=== PATIENT | male | born 1965 | race Hispanic/Latino ===

== ENCOUNTER 2016-11-29 21:23 | Inpatient (IN) | payer MEDICARE ==
[2016-11-29] MEDS ORDERED: Sodium Chloride 0.9% 1,000 ML IV STA (22:09)
--- NOTE | 2016-11-29 22:26 | ED PDOC ---
HPI: Abdomen Time Seen by Provider: 11/29/16 22:00 Chief Complaint (Nursing): Abdominal Pain Chief Complaint (Provider): abdominal pain History Per: Patient History/Exam Limitations: no limitations Onset/Duration Of Symptoms: Hrs Current Symptoms Are (Timing): Still Present Location Of Pain/Discomfort: Diffuse Quality Of Discomfort: Sharp, "Pain" Associated Symptoms: Nausea Additional History Per: Patient Additional Complaint(s): 51 y/o male presents with abdominal pain x 1 hour. Denies fever, vomiting, chest pain, shortness of breath, palpitations, changes in bowel movements, dysuria, hematuria. Past Medical History Reviewed: Historical Data, Nursing Documentation, Vital Signs Vital Signs: Last Vital Signs Temp 102.4 F H 11/30/16 02:43 Pulse 123 H 11/30/16 02:57 Resp 18 11/30/16 02:57 BP 146/86 11/30/16 02:57 Pulse Ox 97 11/30/16 02:59 - Medical History PMH: Arthritis (left knee), Back Problems (herniated disk), Hypercholesterolemia , Hyperlipidemia Denies: Chronic Kidney Disease - Surgical History Surgical History: No Surg Hx - Family History Family History: States: Unknown Family Hx - Home Medications Home Medications: Ambulatory Orders Medication Instructions Recorded traMADol [Ultram] 50 mg PO BID 12/11/14 Aspirin [Aspirin Chewable] 81 mg PO DAILY #0 ctb 08/25/15 Ranitidine HCl [Zantac] 150 mg PO DAILY 06/02/16 amLODIPine [Norvasc] 10 mg PO DAILY 11/30/16 - Allergies Allergies/Adverse Reactions: Allergies Allergy/AdvReac Type Severity Reaction Status Date / Time shrimp Allergy SHORTNESS Verified 11/16/15 18:37 OF BREATH soy Allergy SHORTNESS Verified 11/16/15 18:37 OF BREATH Review of Systems ROS Statement: Except As Marked, All Systems Reviewed And Found Negative Gastrointestinal: Positive for: Abdominal Pain Physical Exam - Reviewed Nursing Documentation Reviewed: Yes Vital Signs Reviewed: Yes - Physical Exam Appears: Positive for: Well, Non-toxic, Uncomfortable Head Exam: Positive for: ATRAUMATIC, NORMAL INSPECTION, NORMOCEPHALIC Skin: Positive for: Normal Color Eye Exam: Positive for: Normal appearance ENT: Positive for: Normal ENT Inspection Cardiovascular/Chest: Positive for: Regular Rate, Rhythm Respiratory: Positive for: Normal Breath Sounds Gastrointestinal/Abdominal: Positive for: Bowel Sounds, Tenderness (diffuse), Distended Back: Positive for: Normal Inspection Extremity: Positive for: Normal ROM Neurologic/Psych: Positive for: Alert, Oriented - Laboratory Results Result Diagrams: 11/29/16 22:30 11/29/16 22:29 - ECG ECG: Positive for: Viewed By Me (reviewed by ED attending) ECG Rhythm: Positive for: Sinus Rhythm O2 Sat by Pulse Oximetry: 97 Pulse Ox Interpretation: Normal - Radiology X-Ray: Viewed By Me X-Ray Interpretation: No Acute Disease - Progress ED Course And Treament: labs, urine, CT abd/pelvis, ekg, chest xray, IV morphine, IV fluids EXAM: CT Abdomen and Pelvis With Intravenous Contrast CLINICAL HISTORY: 51 years old, male; Pain; Abdominal pain; Generalized TECHNIQUE: Axial computed tomography images of the abdomen and pelvis with intravenous contrast. This CT exam was performed using one or more of the following dose reduction techniques : automated exposure control, adjustment of the mA and/or kV according to patient size, and/ or use of iterative reconstruction technique. Coronal and sagittal reformatted images were created and reviewed. CONTRAST: 95 mL of [id number] administered intravenously. EXAM DATE/TIME: 11/29/2016 11:06 PM COMPARISON: CT - ABD PELVIS PO IV CONTRAST 06/04/2016 4:33:35 PM FINDINGS: Artifacts: Streak artifact degrades image quality.Motion artifact degrades image quality. Lower thorax: Heart size is normal. There is a small hiatal hernia. There is patchy airspace disease at the lung bases. ABDOMEN: Liver: There is fatty infiltration of the liver. Gallbladder and bile ducts: unremarkable Pancreas: Pancreas is mildly atrophic. Spleen: unremarkable Adrenals: Right adrenal is unremarkable. There is a 12 mm left adrenal nodule Kidneys and ureters: unremarkable Stomach and bowel: Stomach is distended with ingested material and air. Rotation is normal. Small bowel is mildly distended with scattered air-fluid levels. There is fecalization of distal and terminal ileum. Appendix is not optimally demonstrated. There is moderate stool in the cecum. There is mild colonic wall thickening. There is sigmoid diverticulosis. There is sigmoid diverticulitis. There is adjacent inflammation and fluid. Appendix: See above. PELVIS: Bladder: Bladder is unremarkable. Reproductive: Seminal vesicles and prostate are unremarkable. ABDOMEN and PELVIS: Intraperitoneal space: There is free air in the abdomen. There is a small amount of fluid in the pelvis. Bones/joints: There are degenerative changes in the osseus structures. Soft tissues: There is a small fat containing umbilical hernia. Vasculature: There are vascular calcifications. Lymph nodes: unremarkable IMPRESSION: Perforated sigmoid diverticulitis with free air in the upper abdomen Additional findings as described above. Patient tachycardic in 120's, repeat temp 102.4F Case discussed with ED attending Dr. Mccoy; IV Cipro, IV flagy, OH tylenol, IV fluids ordered Case discussed with Marco Antonio Rosas WRITER for admission, request Dr. Beaulieu for surgical consult Dr. Mccoy spoke with Dr. Beaulieu regarding consult Dr. Mccoy spoke with Dr. Deras, Analyst on-call, regarding consult Disposition - Clinical Impression Clinical Impression: Perforation of sigmoid colon due to diverticulitis - Patient ED Disposition Is Patient to be Admitted: Yes - Disposition Disposition Time: 02:33 Condition: GUARDED
[2016-11-29 22:32] LABS: BASO # 0.1 K/uL (0.0-0.2); BASO % 0.3 % (0.0-2.0); EOS # 0.2 K/uL (0.0-0.7); EOS % 1.3 % (0.0-4.0); HEMATOCRIT 47.9 % (35.0-51.0); MEAN CELL VOLUME 94.5 fl (80.0-94.0); MEAN CORPUSCULAR HEMOGLOBIN 31.4 pg (27.0-31.0); MEAN CORPUSCULAR HGB CONC 33.2 g/dL (33.0-37.0); MEAN PLATELET VOLUME 7.7 fl (7.2-11.7); MONO # 0.8 K/uL (0.0-0.8); MONO % 4.6 % (0.0-10.0); NEUT # 13.6 K/uL (1.8-7.0); NEUT % 81.8 % (50.0-75.0); RED CELL DISTRIBUTION WIDTH 13.4 % (11.5-14.5); WHITE BLOOD COUNT 16.7 K/uL (4.8-10.8)
[2016-11-29 22:45] LABS: ALB/GLOB RATIO 1.4 (1.0-2.1); ALKALINE PHOSPHATASE 54 U/L (38-126); ALT/SGPT 29 U/L (21-72); AST/SGOT 27 U/L (17-59); BILIRUBIN,TOTAL 0.3 mg/dl (0.2-1.3); BLOOD UREA NITROGEN 23 mg/dl (9-20); CALCIUM 9.5 mg/dL (8.4-10.2); CARBON DIOXIDE 29 mmol/L (22-30); CHLORIDE 105 mmol/L (98-107); GFR AFRICAN-AMERICAN > 60; GLUCOSE,RANDOM 89 mg/dL (75-110); LIPASE 76 U/L (23-300); SODIUM 143 mmol/l (132-148); TOTAL PROTEIN 7.7 G/DL (6.3-8.2)
[2016-11-29 22:53] LABS: PARTIAL THROMBOPLASTIN TIME 27.1 Seconds (25.6-37.1)
[2016-11-29] MEDS ORDERED: Iohexol 240 (50 ml) PO ONE (23:06)
[2016-11-29] MEDS ORDERED: Iohexol 240 (50 ml) ONE (23:12)
[2016-11-30] MEDS ORDERED: Iohexol 300 100 ML IJ ONE (01:20)
[2016-11-30] MEDS ORDERED: Sodium Chloride 0.9% 50 ML IV ONE (01:20)
--- NOTE | 2016-11-30 02:21 | CT ---
EXAM: CT Abdomen and Pelvis With Intravenous Contrast CLINICAL HISTORY: 51 years old, male; Pain; Abdominal pain; Generalized TECHNIQUE: Axial computed tomography images of the abdomen and pelvis with intravenous contrast. This CT exam was performed using one or more of the following dose reduction techniques: automated exposure control, adjustment of the mA and/or kV according to patient size, and/or use of iterative reconstruction technique. Coronal and sagittal reformatted images were created and reviewed. CONTRAST: 95 mL of [id number] administered intravenously. EXAM DATE/TIME: 11/29/2016 11:06 PM COMPARISON: CT - ABD PELVIS PO IV CONTRAST 06/04/2016 4:33:35 PM FINDINGS: Artifacts: Streak artifact degrades image quality.Motion artifact degrades image quality. Lower thorax: Heart size is normal. There is a small hiatal hernia. There is patchy airspace disease at the lung bases. ABDOMEN: Liver: There is fatty infiltration of the liver. Gallbladder and bile ducts: unremarkable Pancreas: Pancreas is mildly atrophic. Spleen: unremarkable Adrenals: Right adrenal is unremarkable. There is a 12 mm left adrenal nodule Kidneys and ureters: unremarkable Stomach and bowel: Stomach is distended with ingested material and air. Rotation is normal. Small bowel is mildly distended with scattered air-fluid levels. There is fecalization of distal and terminal ileum. Appendix is not optimally demonstrated. There is moderate stool in the cecum. There is mild colonic wall thickening. There is sigmoid diverticulosis. There is sigmoid diverticulitis. There is adjacent inflammation and fluid. Appendix: See above. PELVIS: Bladder: Bladder is unremarkable. Reproductive: Seminal vesicles and prostate are unremarkable. ABDOMEN and PELVIS: Intraperitoneal space: There is free air in the abdomen. There is a small amount of fluid in the pelvis. Bones/joints: There are degenerative changes in the osseus structures. Soft tissues: There is a small fat containing umbilical hernia. Vasculature: There are vascular calcifications. Lymph nodes: unremarkable IMPRESSION: Perforated sigmoid diverticulitis with free air in the upper abdomen Additional findings as described above.
[2016-11-30] MEDS ORDERED: metroNIDAZOLE 500mg/100ml NS 100 ML IVPB STA (02:23)
[2016-11-30] MEDS ORDERED: Ciprofloxacin 400mg/200ml D5W 400 MG/200 ML BAG IV STA (02:23)
[2016-11-30] MEDS ORDERED: Sodium Chloride 0.9% 1,000 ML IV STA (02:24)
[2016-11-30] MEDS ORDERED: Ciprofloxacin 400mg/200ml D5W 400 MG/200 ML BAG IVPB ONE (02:26)
[2016-11-30] MEDS ORDERED: Sodium Chloride 0.9% 1,000 ML IV SCH (03:00)
--- NOTE | 2016-11-30 03:28 | CP.PCM.CON ---
History of Present Illness - History of Present Illness History of Present Illness: Reason for Consult: Perforated Sigmoid Diverticulitis HPI 51 year old male PMH diverticulitis, HTN, GERD, presents with a few hour hx of acute onset severe sharp nonradiating lower abdominal pain. Patient diaphoretic , guarded, febrile 102.4, HR 123, 146/86, RR 18 saturating 97% RA. WBC 16.7. CT Abd + perforated sigmoid diverticulitis. Denies diarrhea, vomiting, chest pain, dyspnea. METs >4. Dr. Beaulieu surgery consulted in ER, aware. Cipro/Flagyl started in ER. 2L NS given, Morphine for pain control. Admit to ICU for close monitoring. NPO. ROS: per HPI, 12 systems reviewed and negative PMD: [place] PMH: HTN, GERD PSH: denies FH: denies SH: denies tobacco, ETOH, IVDU Meds: as below Allergies: NKDA Vitals: reviewed and currently stable Exam: GEN: diaphoretic, in mild distress, alert, cooperative HEENT: NCAT, PERRL, EOMI NECK: supple, no JVD, no lymphadenopathy CARDIAC: +S1S2 RRR LUNG: CTAB No WRR ABD: +tenderness generalized greatest LLL, SOFT BSX4 NO MASSES NO HSM EXT: +pedal pulses, equal strength NEURO: AAOx3 SKIN warm, moist PSYCH normal mood, normal affect Labs: 11/29/16 22:30 11/29/16 22:29 PT 10.0 Seconds (9.8-13.1) 11/29/16 22:30 INR 0.9 (0.9-1.2) 11/29/16 22:30 APTT 27.1 Seconds (25.6-37.1) 11/29/16 22:30 Rads: CT ABD: + perforated sigmoid diverticulitis Active Medications: Ciprofloxacin 400mg/200ml D5W [Cipro 400mg/200ml DSW] 400 mg in 200 ml IV STAT metroNIDAZOLE 500mg/100ml NS [Flagyl 500MG/100ML NS] 100 ml IVPB STAT 11/30/16 02:24 Sodium Chloride 0.9% 1,000 ml IV 1,000 mls/hr 11/30/16 03:00 Morphine 4 mg IVP Q4H PRN Sodium Chloride 0.9% 1,000 ml IV 150 mls/hr 11/30/16 09:00 Ciprofloxacin 400MG/D5W 250ML Q12H Ciprofloxacin 400mg/200ml D5W [Cipro 400mg/ 200ml DSW] 400 mg in 200 ml IVPB Q12 metroNIDAZOLE 500MG/100ML NS IV Q8H metroNIDAZOLE 500mg/100ml NS [Flagyl 500MG/ 100ML NS] 100 ml IVPB Q8 Assessment and Plan: 51 year old male PMH diverticulitis, HTN, GERD, presents with a few hour hx of acute onset severe sharp nonradiating lower abdominal pain. Patient diaphoretic , guarded, febrile 102.4, HR 123, 146/86, RR 18 saturating 97% RA. WBC 16.7. CT Abd + perforated sigmoid diverticulitis. Denies diarrhea, vomiting, chest pain, dyspnea. METs >4. Dr. Beaulieu surgery consulted in ER, aware. Cipro/Flagyl started in ER. 2L NS given, continuing NS@ 150cc/hr, Morphine for pain control. Admit to ICU for close monitoring. NPO. Sepsis 2/2 Perforated Sigmoid Diverticulitis Admit to ICU for close monitoring CT Abd + perforated sigmoid diverticulitis. Continue Cipro and Flagyl Hold ASA Surgery Consulted in ER Dr Beaulieu NPO and fluids Stat repeat LA Cultures pending Past Patient History - Past Medical History & Family History Past Medical History?: Yes - Past Social History Smoking Status: Never Smoked - CARDIAC Hx Hypercholesterolemia: Yes - PULMONARY Hx Respiratory Disorders: No - NEUROLOGICAL Hx Neurological Disorder: No - HEENT Hx HEENT Problems: No - RENAL Hx Chronic Kidney Disease: No - ENDOCRINE/METABOLIC Hx Endocrine Disorders: No - HEMATOLOGICAL/ONCOLOGICAL Hx Blood Disorders: No - INTEGUMENTARY Hx Dermatological Problems: No - MUSCULOSKELETAL/RHEUMATOLOGICAL Hx Arthritis: Yes (left knee) - GASTROINTESTINAL Hx Gastrointestinal Disorders: No - GENITOURINARY/GYNECOLOGICAL Hx Genitourinary Disorders: No - PSYCHIATRIC Hx Psychophysiologic Disorder: No Hx Substance Use: No - SURGICAL HISTORY Hx Surgeries: No - ANESTHESIA Hx Anesthesia: No Meds Allergies/Adverse Reactions: Allergies Allergy/AdvReac Type Severity Reaction Status Date / Time shrimp Allergy SHORTNESS Verified 11/16/15 18:37 OF BREATH soy Allergy SHORTNESS Verified 11/16/15 18:37 OF BREATH - Medications Medications: Current Medications Ciprofloxacin (Cipro 400mg/200ml Dsw) 400 mg in 200 mls @ 200 mls/hr IV STAT STA Stop: 11/30/16 03:22 Last Admin: 11/30/16 02:54 Dose: 200 mls/hr Metronidazole (Flagyl 500mg/100ml Ns) 100 mls @ 100 mls/hr IVPB STAT STA Stop: 11/30/16 03:22 Sodium Chloride (Sodium Chloride 0.9%) 1,000 mls @ 1,000 mls/hr IV .Q1H STA Stop: 11/30/16 03:23 Last Admin: 11/30/16 02:47 Dose: 1,000 mls/hr Sodium Chloride (Sodium Chloride 0.9%) 1,000 mls @ 150 mls/hr IV .Q6H40M [facility] Ciprofloxacin (Cipro 400mg/200ml Dsw) 400 mg in 200 mls @ 200 mls/hr IVPB Q12 [facility] Metronidazole (Flagyl 500mg/100ml Ns) 100 mls @ 100 mls/hr IVPB Q8 [facility] Morphine Sulfate (Morphine) 4 mg IVP ONCE ONE Stop: 11/30/16 02:56 Last Admin: 11/30/16 03:03 Dose: 4 mg Morphine Sulfate (Morphine) 4 mg IVP Q4H PRN PRN Reason: Pain, moderate (4-7) Results - Vital Signs Recent Vital Signs: Last Vital Signs Temp 102.4 F H 11/30/16 02:43 Pulse 123 H 11/30/16 02:57 Resp 18 11/30/16 02:57 BP 146/86 11/30/16 02:57 Pulse Ox 97 11/30/16 02:59 - Labs Result Diagrams: 11/29/16 22:30 11/29/16 22:29
[2016-11-30] MEDS ORDERED: Lactated Ringer's 1,000 ML IV SCH ×2 (03:45→06:15)
[2016-11-30 05:00] LABS: BASO # 0.1 K/uL (0.0-0.2); BASO % 0.4 % (0.0-2.0); LYMPH # 1.1 K/uL (1.0-4.3); LYMPH % 4.5 % (20.0-40.0); MEAN CELL VOLUME 93.8 fl (80.0-94.0); MEAN CORPUSCULAR HEMOGLOBIN 31.6 pg (27.0-31.0); MEAN CORPUSCULAR HGB CONC 33.8 g/dL (33.0-37.0); MEAN PLATELET VOLUME 7.4 fl (7.2-11.7); MONO # 0.9 K/uL (0.0-0.8); MONO % 3.6 % (0.0-10.0); NEUT # 22.4 K/uL (1.8-7.0); NEUT % 91.5 % (50.0-75.0); PLATELET COUNT 201 K/uL (130-400); RED CELL DISTRIBUTION WIDTH 13.4 % (11.5-14.5); WHITE BLOOD COUNT 24.5 K/uL (4.8-10.8)
[2016-11-30 05:14] LABS: BLOOD UREA NITROGEN 16 mg/dl (9-20); CALCIUM 8.6 mg/dL (8.4-10.2); CARBON DIOXIDE 22 mmol/L (22-30); CHLORIDE 108 mmol/L (98-107); GFR AFRICAN-AMERICAN > 60; GLUCOSE,RANDOM 118 mg/dL (75-110); MAGNESIUM 1.7 MG/DL (1.6-2.3); PHOSPHOROUS 2.5 mg/dl (2.5-4.5); POTASSIUM 3.4 MMOL/L (3.6-5.0); SODIUM 142 mmol/l (132-148)
[2016-11-30] MEDS: Piperacillin/Tazobact 3.375 GM in Sodium Chloride 0.9% 100 ML IVPB SCH ×4 (05:49→21:42)
--- NOTE | 2016-11-30 05:51 | CP.PCM.CON ---
History of Present Illness - History of Present Illness History of Present Illness: General Surgery - Dr. Beaulieu 51 yo M w/ hx of HTN, episode of Diverticulitis in Jun., presents w/ sudden onset abdominal pain since last night. Pt states the pain began around 6pm last night. He describes it as sharp/stabbing pain, located in the upper abdomen initially and causing him SOB. He states the pain migrated to the B/L lower quadrants and remained severe, causing him difficulty standing up. He also admits to nausea, fevers/chills, diaphoresis. Pt denies any vomiting, diarrhea, dysuria, hematuria, chest pain. Pt states this is the first time he' s ever had pain this severe. He had an episode of Diverticulitis in June of this year which was treated with antibiotics. He was supposed to F/U for colonoscopy but never did. PMH: HTN, GERD, Herniated discs in back, Diverticulitis 1x PSH: none SH: Smokes 1 ppd, denies ETOH or elicit drug use Meds: Tramadol, norvasc, ASA 81, Zantac All: Shrimp, Soy Pt was S&E in ICU. Pt has been febrile and tachycardic since admission from ED , Tmax 102.4, HR remains in 120s, BP 150s/80s and stable, saturating 95-99% on NC. Labs significant for WBC of 16.7. CT abd/pelvis shows perforated sigmoid diverticulitis with free air below the diaphragm. Pt received 2L NS in the ED, another 1L LR is ordered and infusing now. Review of Systems - Review of Systems All systems: reviewed and no additional remarkable complaints except (as per HPI ) Past Patient History - Past Medical History & Family History Past Medical History?: Yes - Past Social History Smoking Status: Heavy Smoker > 10 Cigarettes Daily - CARDIAC Hx Hypercholesterolemia: Yes Hx Hypertension: Yes Other/Comment: Hyperlipidemia - PULMONARY Hx Respiratory Disorders: No - NEUROLOGICAL Hx Neurological Disorder: No - HEENT Hx HEENT Problems: No - RENAL Hx Chronic Kidney Disease: No - ENDOCRINE/METABOLIC Hx Endocrine Disorders: No - HEMATOLOGICAL/ONCOLOGICAL Hx Blood Disorders: No - INTEGUMENTARY Hx Dermatological Problems: No - MUSCULOSKELETAL/RHEUMATOLOGICAL Hx Arthritis: Yes (left knee) Hx Falls: Yes Hx Herniated Disk: Yes - GASTROINTESTINAL Hx Gastrointestinal Disorders: No - GENITOURINARY/GYNECOLOGICAL Hx Genitourinary Disorders: No - PSYCHIATRIC Hx Psychophysiologic Disorder: No Hx Substance Use: No - SURGICAL HISTORY Hx Surgeries: No - ANESTHESIA Hx Anesthesia: No Meds Allergies/Adverse Reactions: Allergies Allergy/AdvReac Type Severity Reaction Status Date / Time shrimp Allergy SHORTNESS Verified 11/16/15 18:37 OF BREATH soy Allergy SHORTNESS Verified 11/16/15 18:37 OF BREATH - Medications Medications: Current Medications Acetaminophen (Tylenol 325mg Tab) 650 mg PO Q4 PRN PRN Reason: Fever >100.4 F Sodium Chloride (Sodium Chloride 0.9%) 1,000 mls @ 150 mls/hr IV .Q6H40M [facility] Metronidazole (Flagyl 500mg/100ml Ns) 100 mls @ 100 mls/hr IVPB Q8 [facility] Lactated Ringer's (Lactated Ringer's) 1,000 mls @ 999 mls/hr IV .Q1H1M [facility] Last Admin: 11/30/16 04:30 Dose: 999 mls/hr Piperacillin Sod/Tazobactam (Sod 3.375 gm/ Sodium Chloride) 100 mls @ 100 mls/ hr IVPB Q6 [facility] Potassium Chloride (Potassium Chloride 10 Meq/100 Ml) 100 mls @ 100 mls/hr IVPB Q1 [facility] Stop: 11/30/16 08:59 Morphine Sulfate (Morphine) 4 mg IVP Q4H PRN PRN Reason: Pain, moderate (4-7) Physical Exam - Constitutional Appears: Toxic, In Acute Distress - Head Exam Head Exam: ATRAUMATIC, NORMAL INSPECTION, NORMOCEPHALIC - Eye Exam Eye Exam: EOMI, Normal appearance - ENT Exam ENT Exam: Mucous Membranes Dry - Respiratory Exam Respiratory Exam: NORMAL BREATHING PATTERN. absent: Respiratory Distress - Cardiovascular Exam Cardiovascular Exam: Tachycardia, REGULAR RHYTHM - GI/Abdominal Exam GI & Abdominal Exam: Distended, Firm, Guarding, Rebound, Rigid, Tenderness ( diffusely, Rigid abdomen). absent: Hernia - Extremities Exam Extremities exam: Positive for: normal inspection. Negative for: calf tenderness, pedal edema - Neurological Exam Neurological exam: Alert, Oriented x3 - Psychiatric Exam Psychiatric exam: Normal Affect, Normal Mood - Skin Skin Exam: Diaphoretic, Normal Color Results - Vital Signs Recent Vital Signs: Last Vital Signs Temp 100.1 F H 11/30/16 04:00 Pulse 118 H 11/30/16 04:00 Resp 11 L 11/30/16 04:00 BP 152/97 H 11/30/16 04:00 Pulse Ox 97 11/30/16 04:00 - Labs Result Diagrams: 11/30/16 04:15 11/30/16 04:15 Labs: Laboratory Results - last 24 hr 11/30/16 11/30/16 11/30/16 03:20 04:15 04:15 WBC 24.5 H RBC 4.80 Hgb 15.2 Hct 45.0 MCV 93.8 MCH 31.6 H MCHC 33.8 RDW 13.4 Plt Count 201 MPV 7.4 Neut % (Auto) 91.5 H Lymph % (Auto) 4.5 L [place] % (Auto) 3.6 Eos % (Auto) 0.0 Baso % (Auto) 0.4 Neut # 22.4 H Lymph # 1.1 [place] # 0.9 H Eos # 0.0 Baso # 0.1 Sodium 142 Potassium 3.4 L Chloride 108 H Carbon Dioxide 22 Anion Gap 15 BUN 16 Creatinine 0.7 L Est GFR ( Amer) > 60 Est GFR (Non-Af Amer) > 60 Random Glucose 118 H Lactic Acid 2.3 H Calcium 8.6 Phosphorus 2.5 Magnesium 1.7 - Imaging and Cardiology CT scan - abdomen Status: Image reviewed by me, Report reviewed by me Assessment & Plan - Assessment and Plan (Free Text) Assessment: 51 yo M w/ perforated diverticulitis and pneumoperitoneum, septic -Admitted to ICU -NPO -IVF resuscitation, Electrolyte repletion -Insert [place] and Monitor I/O -IV Abx: Zosyn -Pain control -OR today, time tbd DW Dr Christofer Deras PGY2
[2016-11-30] MEDS: Potassium CL 10mEq/100ml 100 ML IVPB SCH ×3 (06:04→08:07)
[2016-11-30 06:48] LABS: NEUTROPHIL 90 % (42-75); TOTAL CELLS COUNTED 100
--- NOTE | 2016-11-30 07:12 | CP.PCM.HP ---
History of Present Illness - History of Present Illness History of Present Illness: pt admitted for perfoated diverticulum. pt states started approx 1800 yesterdya w/ abd pain and n/v. no f/c, but is febrile at present. pt seen by surgery and is for or today for repair or perf. abd is distended and tender w/ hypoactive bw. imaging, ekg and bw noted. only significant med hx is OA, htn nad diverticulitis Present on Admission - Present on Admission Any Indicators Present on Admission: No Review of Systems - Gastrointestinal Gastrointestinal: As Per HPI, Abdominal Pain, Nausea, Vomiting Past Patient History - Past Medical History & Family History Past Medical History?: Yes - Past Social History Smoking Status: Heavy Smoker > 10 Cigarettes Daily - CARDIAC Hx Hypercholesterolemia: Yes Hx Hypertension: Yes Other/Comment: Hyperlipidemia - PULMONARY Hx Respiratory Disorders: No - NEUROLOGICAL Hx Neurological Disorder: No - HEENT Hx HEENT Problems: No - RENAL Hx Chronic Kidney Disease: No - ENDOCRINE/METABOLIC Hx Endocrine Disorders: No - HEMATOLOGICAL/ONCOLOGICAL Hx Blood Disorders: No - INTEGUMENTARY Hx Dermatological Problems: No - MUSCULOSKELETAL/RHEUMATOLOGICAL Hx Arthritis: Yes (left knee) Hx Falls: Yes Hx Herniated Disk: Yes - GASTROINTESTINAL Hx Gastrointestinal Disorders: No - GENITOURINARY/GYNECOLOGICAL Hx Genitourinary Disorders: No - PSYCHIATRIC Hx Psychophysiologic Disorder: No Hx Substance Use: No - SURGICAL HISTORY Hx Surgeries: No - ANESTHESIA Hx Anesthesia: No Meds Allergies/Adverse Reactions: Allergies Allergy/AdvReac Type Severity Reaction Status Date / Time shrimp Allergy SHORTNESS Verified 11/16/15 18:37 OF BREATH soy Allergy SHORTNESS Verified 11/16/15 18:37 OF BREATH Physical Exam - Constitutional Appears: Well, Non-toxic, No Acute Distress - Head Exam Head Exam: ATRAUMATIC, NORMAL INSPECTION, NORMOCEPHALIC - Eye Exam Eye Exam: EOMI, Normal appearance, PERRL Pupil Exam: NORMAL ACCOMODATION, PERRL - ENT Exam ENT Exam: Mucous Membranes Moist, Normal Exam - Neck Exam Neck exam: Positive for: Normal Inspection - Respiratory Exam Respiratory Exam: Clear to Auscultation Bilateral, NORMAL BREATHING PATTERN - Cardiovascular Exam Cardiovascular Exam: REGULAR RHYTHM, RRR, +S1, +S2 - GI/Abdominal Exam GI & Abdominal Exam: Distended, Guarding, Hypoactive Bowel Sounds, Soft, Tenderness - Extremities Exam Extremities exam: Positive for: full ROM, normal capillary refill, normal inspection, pedal pulses present - Back Exam Back exam: NORMAL INSPECTION - Neurological Exam Neurological exam: Alert, CN II-XII Intact, Normal Gait, Oriented x3, Reflexes Normal - Psychiatric Exam Psychiatric exam: Normal Affect, Normal Mood - Skin Skin Exam: Dry, Intact, Normal Color, Warm Results - Vital Signs Recent Vital Signs: Last Vital Signs Temp 100.1 F H 11/30/16 04:00 Pulse 120 H 11/30/16 06:00 Resp 24 11/30/16 06:00 BP 139/92 H 11/30/16 06:00 Pulse Ox 97 11/30/16 06:00 - Labs Result Diagrams: 11/30/16 04:15 11/30/16 04:15 Labs: Laboratory Results - last 24 hr 11/30/16 11/30/16 11/30/16 03:20 04:15 04:15 WBC 24.5 H RBC 4.80 Hgb 15.2 Hct 45.0 MCV 93.8 MCH 31.6 H MCHC 33.8 RDW 13.4 Plt Count 201 MPV 7.4 Neut % (Auto) 91.5 H Lymph % (Auto) 4.5 L [place] % (Auto) 3.6 Eos % (Auto) 0.0 Baso % (Auto) 0.4 Neut # 22.4 H Lymph # 1.1 [place] # 0.9 H Eos # 0.0 Baso # 0.1 Neutrophils % (Manual) 90 H Band Neutrophils % 3 H Lymphocytes % (Manual) 5 L Monocytes % (Manual) 2 Platelet Estimate Normal RBC Morphology Normal Sodium 142 Potassium 3.4 L Chloride 108 H Carbon Dioxide 22 Anion Gap 15 BUN 16 Creatinine 0.7 L Est GFR ( Amer) > 60 Est GFR (Non-Af Amer) > 60 Random Glucose 118 H Lactic Acid 2.3 H Calcium 8.6 Phosphorus 2.5 Magnesium 1.7 Assessment & Plan (1) Perforation of sigmoid colon due to diverticulitis Assessment and Plan: anbx, surgical consult for or today ivf icu care Status: Acute (2) DVT prophylaxis Assessment and Plan: scd and ae hose hold anticoag Status: Acute Decision To Admit - Pt Status Changed To: Hospital Disposition Of: Inpatient - Admit Certification Admit to Inpatient:: After my assessment, the patient will require hospitalization for at least two midnights. This is because of the severity of symptoms shown, intensity of services needed, and/or the medical risk in this patient being treated as an outpatient. - . Bed Request Type: Intensive Care Admitting Physician: Jonnathan Snow
[2016-11-30] MEDS ORDERED: Ciprofloxacin 400mg/200ml D5W 400 MG/200 ML BAG IVPB SCH (09:00)
[2016-11-30 10:11] LABS: RBC URINE 1 /hpf (0-3); URINE BILIRUBIN NEGATIVE (NEGATIVE); URINE BLOOD NEGATIVE (NEGATIVE); URINE COLOR YELLOW (YELLOW); URINE GLUCOSE (UA) NEG (Normal); URINE KETONE NEGATIVE (NEGATIVE); URINE LEUKOCYTE ESTERASE NEG Leu/uL (Negative); URINE PROTEIN NEGATIVE (NEGATIVE); URINE UROBILINOGEN 0.2-1.0 mg/dL (0.2-1.0); WBC URINE 1 /hpf (0-5)
[2016-11-30] MEDS ORDERED: Propofol 10 mg/ml Inj (20 ML) ONE (10:30)
[2016-11-30] MEDS ORDERED: Lidocaine 2% Jelly (5 ml) TOP ONE (10:30)
[2016-11-30] MEDS ORDERED: Succinylcholine 200 mg/10 ml Inj IV ONE (10:30)
[2016-11-30] MEDS ORDERED: Etomidate 20 mg/10ml Inj IV ONE (11:05)
[2016-11-30] MEDS ORDERED: Lactated Ringer's 1,000 ML IV ONE ×2 (11:11→12:00)
[2016-11-30] MEDS ORDERED: Rocuronium 10 mg/ml (5 ml) ONE (11:17)
[2016-11-30] MEDS ORDERED: metroNIDAZOLE 500mg/100ml NS IVPB ONE (11:26)
[2016-11-30] MEDS ORDERED: Esmolol 100 mg/10ml Inj IV ONE (11:27)
[2016-11-30] MEDS ORDERED: Neostigmine Methylsulfate 3mg/3ml Syringe IV ONE (12:01)
[2016-11-30] MEDS ORDERED: Neostigmine Methylsulfate 2 MG/2 ML ML IV ONE (12:01)
[2016-11-30] MEDS ORDERED: Liquid Adhesive TOP ONE (12:45)
--- NOTE | 2016-11-30 12:50 | CP.CCUPN ---
CCU Subjective - Physician Review Subjective (Free Text): Awake and alert this AM, underwent Ex Lap for Bowel perforation, did not require pressors, on crystalloid fluid resuscitation, adequate urine outputs noted, lactate marginally elevated, T max of 102.4F noted. CCU Objective - Vital Signs / Intake & Output Vital Signs (Last 4 hours): Vital Signs Pulse Resp BP Pulse Ox 11/30/16 10:00 106 H 26 H 146/97 H 96 Intake and Output (Last 8hrs): Intake & Output 11/29/16 11/30/16 11/30/16 22:59 06:59 14:59 Intake Total 1375 1950 Output Total 1000 700 Balance 375 1250 Intake: IV 1075 1750 Intake, Piggyback 300 200 Output: Urine 1000 700 Urethral (Espinosa) 1000 500 - Physical Exam Physical Exam Limitations: Positive for: Altered Mental Status Pupils: Positive for: PERRL Extroacular Muscles: Positive for: EOMI Conjunctiva: Positive for: Normal Ears: Positive for: Normal Mouth: Positive for: Moist Mucous Membranes Pharnyx: Positive for: Normal Neck: Positive for: Normal Range of Motion. Negative for: JVD, Lymphadenopathy Respiratory/Chest: Positive for: Clear to Auscultation Cardiovascular: Positive for: Regular Rate and Rhythm, Normal S1, S2. Negative for: Murmurs Abdomen: Positive for: Tenderness Lower Extremity: Positive for: Normal Inspection. Negative for: Edema, CALF TENDERNESS, Cyanosis Neurological: Positive for: GCS=15, Motor Func Grossly Intact, Norm Deep Tendon Reflexes Skin: Negative for: Rashes Psychiatric: Positive for: Oriented x 3 - Medications Active Medications: Active Medications Generic Name Dose Route Start Last Admin Trade Name Freq PRN Reason Stop Dose Admin Acetaminophen 650 mg 11/30/16 06:03 Tylenol 650 Mg Supp [place] Q6 PRN Fever >100.4 F Hydromorphone HCl 1 mg 11/30/16 06:00 Dilaudid IVP Q3H PRN Pain, moderate (4-7) Metronidazole 100 mls @ 100 mls/hr 11/30/16 09:00 Flagyl 500mg/100ml Ns IVPB Q8 VALENCIA Lactated Ringer's 1,000 mls @ 999 mls/hr 11/30/16 03:45 11/30/16 04:30 Lactated Ringer's IV 999 mls/hr .Q1H1M VALENCIA Administration Piperacillin Sod/Tazobactam 100 mls @ 100 mls/hr 11/30/16 04:00 11/30/16 09: 44 Sod 3.375 gm/ Sodium Chloride IVPB 100 mls/hr Q6 VALENCIA Administration Lactated Ringer's 1,000 mls @ 250 mls/hr 11/30/16 06:15 Lactated Ringer's IV .Q4H VALENCIA - Patient Studies Lab Studies: Lab Studies 11/30/16 11/30/16 11/30/16 Range/Units 09:45 08:49 07:00 WBC (4.8-10.8) K/uL RBC (4.40-5.90) Mil/uL Hgb (12.0-18.0) g/dL Hct (35.0-51.0) % MCV (80.0-94.0) fl MCH (27.0-31.0) pg MCHC (33.0-37.0) g/dL RDW (11.5-14.5) % Plt Count (130-400) K/uL MPV (7.2-11.7) fl Neut % (Auto) (50.0-75.0) % Lymph % (Auto) (20.0-40.0) % [place] % (Auto) (0.0-10.0) % Eos % (Auto) (0.0-4.0) % Baso % (Auto) (0.0-2.0) % Neut # (1.8-7.0) K/uL Lymph # (1.0-4.3) K/uL [place] # (0.0-0.8) K/uL Eos # (0.0-0.7) K/uL Baso # (0.0-0.2) K/uL Neutrophils % (Manual) (42-75) % Band Neutrophils % (0-2) % Lymphocytes % (Manual) (20-50) % Monocytes % (Manual) (0-10) % Platelet Estimate (NORMAL) RBC Morphology (NORMAL) Sodium (132-148) mmol/l Potassium (3.6-5.0) MMOL/L Chloride (98-107) mmol/L Carbon Dioxide (22-30) mmol/L Anion Gap (10-20) BUN (9-20) mg/dl Creatinine (0.8-1.5) mg/dL Est GFR ( Amer) Est GFR (Non-Af Amer) Random Glucose (75-110) mg/dL Lactic Acid (0.7-2.1) MMOL/L Calcium (8.4-10.2) mg/dL Phosphorus (2.5-4.5) mg/dl Magnesium (1.6-2.3) MG/DL Urine Color Yellow (YELLOW) Urine Clarity Clear (Clear) Urine pH 7.0 (5.0-8.0) Ur Specific [place] 1.029 (1.003-1.030) Urine Protein Negative (NEGATIVE) mg/dL Urine Glucose (UA) Neg (Normal) mg/dL Urine Ketones Negative (NEGATIVE) mg/dL Urine Blood Negative (NEGATIVE) Urine Nitrate Negative (NEGATIVE) Urine Bilirubin Negative (NEGATIVE) Urine Urobilinogen 0.2-1.0 (0.2-1.0) mg/dL Ur Leukocyte Esterase Neg (Negative) Anisha/uL Urine RBC (Auto) 1 (0-3) /hpf Urine Microscopic WBC 1 (0-5) /hpf Ur Squamous Epith Cells < 1 (0-5) /hpf Blood Type A POSITIVE Blood Type Confirm A POSITIVE Antibody Screen Negative Crossmatch See Detail BBK History Checked No verified bt 11/30/16 11/30/16 11/30/16 Range/Units 04:15 04:15 03:20 WBC 24.5 H (4.8-10.8) K/uL RBC 4.80 (4.40-5.90) Mil/uL Hgb 15.2 (12.0-18.0) g/dL Hct 45.0 (35.0-51.0) % MCV 93.8 (80.0-94.0) fl MCH 31.6 H (27.0-31.0) pg MCHC 33.8 (33.0-37.0) g/dL RDW 13.4 (11.5-14.5) % Plt Count 201 (130-400) K/uL MPV 7.4 (7.2-11.7) fl Neut % (Auto) 91.5 H (50.0-75.0) % Lymph % (Auto) 4.5 L (20.0-40.0) % [place] % (Auto) 3.6 (0.0-10.0) % Eos % (Auto) 0.0 (0.0-4.0) % Baso % (Auto) 0.4 (0.0-2.0) % Neut # 22.4 H (1.8-7.0) K/uL Lymph # 1.1 (1.0-4.3) K/uL [place] # 0.9 H (0.0-0.8) K/uL Eos # 0.0 (0.0-0.7) K/uL Baso # 0.1 (0.0-0.2) K/uL Neutrophils % (Manual) 90 H (42-75) % Band Neutrophils % 3 H (0-2) % Lymphocytes % (Manual) 5 L (20-50) % Monocytes % (Manual) 2 (0-10) % Platelet Estimate Normal (NORMAL) RBC Morphology Normal (NORMAL) Sodium 142 (132-148) mmol/l Potassium 3.4 L (3.6-5.0) MMOL/L Chloride 108 H (98-107) mmol/L Carbon Dioxide 22 (22-30) mmol/L Anion Gap 15 (10-20) BUN 16 (9-20) mg/dl Creatinine 0.7 L (0.8-1.5) mg/dL Est GFR ( Amer) > 60 Est GFR (Non-Af Amer) > 60 Random Glucose 118 H (75-110) mg/dL Lactic Acid 2.3 H (0.7-2.1) MMOL/L Calcium 8.6 (8.4-10.2) mg/dL Phosphorus 2.5 (2.5-4.5) mg/dl Magnesium 1.7 (1.6-2.3) MG/DL Urine Color (YELLOW) Urine Clarity (Clear) Urine pH (5.0-8.0) Ur Specific [place] (1.003-1.030) Urine Protein (NEGATIVE) mg/dL Urine Glucose (UA) (Normal) mg/dL Urine Ketones (NEGATIVE) mg/dL Urine Blood (NEGATIVE) Urine Nitrate (NEGATIVE) Urine Bilirubin (NEGATIVE) Urine Urobilinogen (0.2-1.0) mg/dL Ur Leukocyte Esterase (Negative) Anisha/uL Urine RBC (Auto) (0-3) /hpf Urine Microscopic WBC (0-5) /hpf Ur Squamous Epith Cells (0-5) /hpf Blood Type Blood Type Confirm Antibody Screen Crossmatch BBK History Checked Laboratory Results - last 24 hr 11/30/16 11/30/16 11/30/16 03:20 04:15 04:15 WBC 24.5 H RBC 4.80 Hgb 15.2 Hct 45.0 MCV 93.8 MCH 31.6 H MCHC 33.8 RDW 13.4 Plt Count 201 MPV 7.4 Neut % (Auto) 91.5 H Lymph % (Auto) 4.5 L [place] % (Auto) 3.6 Eos % (Auto) 0.0 Baso % (Auto) 0.4 Neut # 22.4 H Lymph # 1.1 R[place] # 0.9 H Eos # 0.0 Baso # 0.1 Neutrophils % (Manual) 90 H Band Neutrophils % 3 H Lymphocytes % (Manual) 5 L Monocytes % (Manual) 2 Platelet Estimate Normal RBC Morphology Normal Sodium 142 Potassium 3.4 L Chloride 108 H Carbon Dioxide 22 Anion Gap 15 BUN 16 Creatinine 0.7 L Est GFR ( Amer) > 60 Est GFR (Non-Af Amer) > 60 Random Glucose 118 H Lactic Acid 2.3 H Calcium 8.6 Phosphorus 2.5 Magnesium 1.7 Urine Color Urine Clarity Urine pH Ur Specific [place] Urine Protein Urine Glucose (UA) Urine Ketones Urine Blood Urine Nitrate Urine Bilirubin Urine Urobilinogen Ur Leukocyte Esterase Urine RBC (Auto) Urine Microscopic WBC Ur Squamous Epith Cells Blood Type Blood Type Confirm Antibody Screen Crossmatch BBK History Checked 11/30/16 11/30/16 11/30/16 07:00 08:49 09:45 WBC RBC Hgb Hct MCV MCH MCHC RDW Plt Count MPV Neut % (Auto) Lymph % (Auto) [place] % (Auto) Eos % (Auto) Baso % (Auto) Neut # Lymph # [place] # Eos # Baso # Neutrophils % (Manual) Band Neutrophils % Lymphocytes % (Manual) Monocytes % (Manual) Platelet Estimate RBC Morphology Sodium Potassium Chloride Carbon Dioxide Anion Gap BUN Creatinine Est GFR ( Amer) Est GFR (Non-Af Amer) Random Glucose Lactic Acid Calcium Phosphorus Magnesium Urine Color Yellow Urine Clarity Clear Urine pH 7.0 Ur Specific [place] 1.029 Urine Protein Negative Urine Glucose (UA) Neg Urine Ketones Negative Urine Blood Negative Urine Nitrate Negative Urine Bilirubin Negative Urine Urobilinogen 0.2-1.0 Ur Leukocyte Esterase Neg Urine RBC (Auto) 1 Urine Microscopic WBC 1 Ur Squamous Epith Cells < 1 Blood Type A POSITIVE Blood Type Confirm A POSITIVE Antibody Screen Negative Crossmatch See Detail BBK History Checked No verified bt Critical Care Progress Note - Extremities/Vascular Does the Patient have a Central Venous Catheter?: No Does the Patient need a Central Venous Catheter?: No Does the Patient have a Espinosa Catheter?: Yes Does the Patient need a Espinosa Catheter?: Yes Catheter Insertion Criteria: Need for accurate measurement of output in critically ill patient - Prophylaxis GI Prophylaxis GI: Pepsid - Prophylaxis DVT Prophylaxis DVT: SCDs - Nutrition Nutrition: Nutrition Category Date Time Status NPO Diet [DIET] Diets 11/30/16 Breakfast Active Assessment/Plan - Assessment and Plan (Free Text) Assessment: Sigmoid Diverticulitis with perforation s/p Ex Lap with colon resection and colostomy Pre-op Hypokalemia Hypertension by history Plan: - Post-op mgmt as per General Surgery team - IVF hydration with K supplementation, check Mag / Phos levels. - Blood cultures, empiric abx coverage noted - Serial Lactate measurements - Will treat for sustained elevations in MAP above 110-120, if not pain- induced.
--- NOTE | 2016-11-30 13:04 | PCM.SURG1 ---
Surgeon's Initial Post Op Note - Surgeon's Notes Surgeon: Dr. Mic Beaulieu Weigher And Grader: Shae Deras, PGY2. Kami Kramer, PGY3 Pre-Operative Diagnosis: perforated diverticulitis Operative Findings: see full operative report Post-Operative Diagnosis: same Operation Performed: Exploratory lapartotomy, Sigmoid colectomy with velázquez's, end sigmoid colostomy Specimen/Specimens Removed: sigmoid colon segment Estimated Blood Loss: EBL {In ML}: 50 Date of Surgery/Procedure: 11/30/16 Time of Surgery/Procedure: 11:11
--- NOTE | 2016-11-30 13:27 | CARD ---
APPROVED REPORT EKG Measurement Heart [id number] <Conclusion> Normal sinus rhythm Pulmonary disease pattern Left anterior fascicular block Abnormal ECG
[2016-11-30] MEDS: metroNIDAZOLE 500mg/100ml NS 100 ML IVPB SCH ×2 (13:45→16:20)
--- NOTE | 2016-11-30 14:43 | RAD ---
HISTORY: abd pain COMPARISON: 06/02/2015. FINDINGS: LUNGS: Poor inspiration with low lung volumes, mild crowded bronchovascular markings and mild bibasilar atelectasis. PLEURA: No significant pleural effusion identified, no pneumothorax apparent. CARDIOVASCULAR: Heart appears enlarged. OSSEOUS STRUCTURES: No significant abnormalities. VISUALIZED UPPER ABDOMEN: Normal. OTHER FINDINGS: None. IMPRESSION: Poor inspiration with low lung volumes, mild crowded bronchovascular markings and mild bibasilar atelectasis. Cardiomegaly.
[2016-11-30] MEDS: Lactated Ringer's 1,000 ML IV SCH ×2 (17:21→20:20)
[2016-12-01] MEDS: metroNIDAZOLE 500mg/100ml NS 100 ML IVPB SCH ×3 (00:30→16:07)
[2016-12-01] MEDS: Piperacillin/Tazobact 3.375 GM in Sodium Chloride 0.9% 100 ML IVPB SCH ×4 (03:49→21:25)
[2016-12-01] MEDS: Lactated Ringer's 1,000 ML IV SCH ×2 (05:00→23:38)
[2016-12-01 05:29] LABS: HEMATOCRIT 44.2 % (35.0-51.0); LYMPH # 1.3 K/uL (1.0-4.3); LYMPH % 5.6 % (20.0-40.0); MEAN CELL VOLUME 95.1 fl (80.0-94.0); MEAN CORPUSCULAR HEMOGLOBIN 31.4 pg (27.0-31.0); MEAN CORPUSCULAR HGB CONC 33.1 g/dL (33.0-37.0); MEAN PLATELET VOLUME 7.6 fl (7.2-11.7); MONO % 4.6 % (0.0-10.0); NEUT # 20.6 K/uL (1.8-7.0); NEUT % 89.8 % (50.0-75.0); RED CELL DISTRIBUTION WIDTH 13.7 % (11.5-14.5)
[2016-12-01 05:37] LABS: ALB/GLOB RATIO 1.2 (1.0-2.1); ALKALINE PHOSPHATASE 49 U/L (38-126); ALT/SGPT 25 U/L (21-72); AST/SGOT 19 U/L (17-59); BILIRUBIN,TOTAL 0.9 mg/dl (0.2-1.3); BLOOD UREA NITROGEN 17 mg/dl (9-20); CALCIUM 8.5 mg/dL (8.4-10.2); CARBON DIOXIDE 25 mmol/L (22-30); CHLORIDE 109 mmol/L (98-107); GFR AFRICAN-AMERICAN > 60; GLUCOSE,RANDOM 123 mg/dL (75-110); POTASSIUM 3.3 MMOL/L (3.6-5.0); SODIUM 142 mmol/l (132-148); TOTAL PROTEIN 6.5 G/DL (6.3-8.2)
--- NOTE | 2016-12-01 08:27 | CP.PCM.PN ---
Subjective - Date & Time of Evaluation Date of Evaluation: 12/01/16 Time of Evaluation: 08:27 - Subjective Subjective: doign well, still w/ abd pain, colostomy nosted w/ some bloody dc no f/c, n/v/ d. bw noted. case d/c w/ dr maldonado icu attending. surgical notes reviewed. Objective - Vital Signs/Intake and Output Vital Signs (last 24 hours): Temp Pulse Resp BP Pulse Ox 98.5 F 107 H 24 177/97 H 93 L 12/01/16 07:33 12/01/16 07:33 12/01/16 07:33 12/01/16 07:33 12/01/16 07:33 Intake and Output: 12/01/16 12/01/16 06:59 18:59 Intake Total 1500 Output Total 1120 Balance 380 - Medications Medications: Current Medications Acetaminophen (Tylenol 650 Mg Supp) 650 mg MS Q6 PRN PRN Reason: Fever >100.4 F Hydromorphone HCl (Dilaudid) 2 mg IVP Q4H PRN PRN Reason: Pain, moderate (4-7) Metronidazole (Flagyl 500mg/100ml Ns) 100 mls @ 100 mls/hr IVPB Q8 [facility] Last Admin: 12/01/16 08:17 Dose: 100 mls/hr Piperacillin Sod/Tazobactam (Sod 3.375 gm/ Sodium Chloride) 100 mls @ 100 mls/ hr IVPB Q6 [facility] Last Admin: 12/01/16 03:49 Dose: 100 mls/hr Lactated Ringer's (Lactated Ringer's) 1,000 mls @ 150 mls/hr IV .Q6H40M [facility] Last Admin: 12/01/16 05:00 Dose: 150 mls/hr Ondansetron HCl (Zofran Inj) 4 mg IVP Q6 PRN PRN Reason: Nausea/Vomiting Pantoprazole Sodium (Protonix Inj) 40 mg IVP DAILY [facility] Last Admin: 12/01/16 08:15 Dose: 40 mg - Labs Labs: 12/01/16 04:45 12/01/16 04:45 PT 10.0 Seconds (9.8-13.1) 11/29/16 22:30 INR 0.9 (0.9-1.2) 11/29/16 22:30 APTT 27.1 Seconds (25.6-37.1) 11/29/16 22:30 - Constitutional Appears: Well, Non-toxic, No Acute Distress - Head Exam Head Exam: ATRAUMATIC, NORMAL INSPECTION, NORMOCEPHALIC - Eye Exam Eye Exam: EOMI, Normal appearance, PERRL Pupil Exam: NORMAL ACCOMODATION, PERRL - ENT Exam ENT Exam: Mucous Membranes Moist, Normal Exam - Neck Exam Neck Exam: Full ROM, Normal Inspection. absent: Lymphadenopathy - Respiratory Exam Respiratory Exam: Clear to Ausculation Bilateral, NORMAL BREATHING PATTERN - Cardiovascular Exam Cardiovascular Exam: REGULAR RHYTHM, RRR, +S1, +S2. absent: Murmur - GI/Abdominal Exam GI & Abdominal Exam: Soft, Normal Bowel Sounds. absent: Tenderness - Extremities Exam Extremities Exam: Full ROM, Normal Capillary Refill, Normal Inspection. absent : Joint Swelling, Pedal Edema - Back Exam Back Exam: NORMAL INSPECTION - Neurological Exam Neurological Exam: Alert, Awake, CN II-XII Intact, Normal Gait, Oriented x3 - Psychiatric Exam Psychiatric exam: Normal Affect, Normal Mood - Skin Skin Exam: Dry, Intact, Normal Color, Warm Assessment and Plan (1) Perforation of sigmoid colon due to diverticulitis Status: Acute (2) DVT prophylaxis Status: Acute - Assessment and Plan (Free Text) Assessment: (1) Perforation of sigmoid colon due to diverticulitis Assessment and Plan: anbx-cipro,flagyl, zosyn, surgical consult pod 1 ivf icu care pain control f/u c/s thus far negative, lactate now noraml Status: Acute (2) DVT prophylaxis Assessment and Plan: scd and ae hose hold anticoag Status: Acute
--- NOTE | 2016-12-01 09:09 | CP.PCM.PN ---
Subjective - Date & Time of Evaluation Date of Evaluation: 12/01/16 Time of Evaluation: 06:45 - Subjective Subjective: General Surgery consult note Patient S/e at bedside this AM. Overnight patient had persistent mild tachycardia with HR in 110's and was diaphoretic but afebrile. Pain was not well controlled with current pain regimen. Patient complains of abdominal pain and SOB, but denies fevers, chills, nausea, vomiting, or any other symptoms. Patient has minimal bloody output from the colostomy and adequate urine output Objective - Vital Signs/Intake and Output Vital Signs (last 24 hours): Temp Pulse Resp BP Pulse Ox 98.5 F 107 H 24 177/97 H 93 L 12/01/16 07:33 12/01/16 07:33 12/01/16 07:33 12/01/16 07:33 12/01/16 07:33 Intake and Output: 12/01/16 12/01/16 06:59 18:59 Intake Total 1500 Output Total 1120 Balance 380 - Medications Medications: Current Medications Acetaminophen (Tylenol 650 Mg Supp) 650 mg IN Q6 PRN PRN Reason: Fever >100.4 F Hydromorphone HCl (Dilaudid) 2 mg IVP Q4H PRN PRN Reason: Pain, moderate (4-7) Metronidazole (Flagyl 500mg/100ml Ns) 100 mls @ 100 mls/hr IVPB Q8 [facility] Last Admin: 12/01/16 08:17 Dose: 100 mls/hr Piperacillin Sod/Tazobactam (Sod 3.375 gm/ Sodium Chloride) 100 mls @ 100 mls/ hr IVPB Q6 [facility] [place] Last Admin: 12/01/16 03:49 Dose: 100 mls/hr Lactated Ringer's (Lactated Ringer's) 1,000 mls @ 150 mls/hr IV .Q6H40M [facility] [place] Last Admin: 12/01/16 05:00 Dose: 150 mls/hr Ondansetron HCl (Zofran Inj) 4 mg IVP Q6 PRN PRN Reason: Nausea/Vomiting Pantoprazole Sodium (Protonix Inj) 40 mg IVP DAILY [facility] [place] Last Admin: 12/01/16 08:15 Dose: 40 mg - Labs Labs: 12/01/16 04:45 12/01/16 04:45 PT 10.0 Seconds (9.8-13.1) 11/29/16 22:30 INR 0.9 (0.9-1.2) 11/29/16 22:30 APTT 27.1 Seconds (25.6-37.1) 11/29/16 22:30 - Constitutional Appears: Non-toxic, No Acute Distress - Head Exam Head Exam: ATRAUMATIC, NORMOCEPHALIC - Eye Exam Eye Exam: Normal appearance. absent: Conjunctival injection, Scleral icterus - ENT Exam ENT Exam: Mucous Membranes Dry, Normal Oropharynx - Respiratory Exam Respiratory Exam: NORMAL BREATHING PATTERN. absent: Accessory Muscle Use, Respiratory Distress - Cardiovascular Exam Cardiovascular Exam: Tachycardia, REGULAR RHYTHM - GI/Abdominal Exam GI & Abdominal Exam: Distended (moderately distended), Soft, Tenderness ( diffuse tenderness more severe in the lower quadrants BL) Additional comments: Colostomy pink with some duskiness at the edges, productive of minimal amount blood. Midline incision's surgical dressing dry, intact, with moderate amount of old sanguinous saturation at the lower pole - Extremities Exam Extremities Exam: absent: Calf Tenderness, Pedal Edema, Tenderness - Neurological Exam Neurological Exam: Alert, Awake, Oriented x3 - Psychiatric Exam Psychiatric exam: Normal Affect, Normal Mood - Skin Skin Exam: Diaphoretic, Normal Color, Warm Assessment and Plan - Assessment and Plan (Free Text) Assessment: 51M POD#1 s/p exploratory laparotomy with sigmoid colectomy and colostomy for perforated diverticulitis Afebrile, mild tachycardia improved since yesterday Significant pain, diaphoretic WBC down to 23.0 from 24.5 Plan: -F/u CXR -Continue to monitor ostomy output -Add breakthrough pain medication regimen -Repeat abdominal exam when pain better controlled -Continue to trend CBC/BMP -Continue antibiotics -NPO -Encourage incentive spirometer use and ambulation Patient discussed with Dr. Beaulieu, further recs per him Kami Kramer, PGY1
--- NOTE | 2016-12-01 12:21 | CP.CCUPN ---
CCU Subjective - Physician Review Subjective (Free Text): Awake and alert this AM, POD 1-2 for Ex Lap for Bowel perforation, did not require pressors, on crystalloid fluid hydration, adequate urine outputs noted, lactate marginally elevated, on admission / pre-op, now normalized, no further temp spikes from initial of T max of 102.4F noted. Was diaphoretic this AM, denied any concurrent fvers, chills, CP nor any increase in pain internally; nor from wound or other discomfort. CCU Objective - Vital Signs / Intake & Output Vital Signs (Last 4 hours): Vital Signs Temp Pulse Resp BP Pulse Ox 12/01/16 11:46 98.5 F 112 H 20 152/88 H 93 L 12/01/16 10:00 88 22 163/96 H 94 L Intake and Output (Last 8hrs): Intake & Output 11/30/16 12/01/16 12/01/16 22:59 06:59 14:59 Intake Total 1600 1100 Output Total 900 1120 Balance 700 -20 Intake: IV 1300 900 Intake, Piggyback 300 200 Output: Gastric Amount 20 Stomach 20 Urine 900 1100 Urethral (Espinosa) 900 1100 - Physical Exam Pupils: Positive for: PERRL Extroacular Muscles: Positive for: EOMI Conjunctiva: Positive for: Normal Ears: Positive for: Normal Mouth: Positive for: Moist Mucous Membranes Pharnyx: Positive for: Normal Neck: Positive for: Normal Range of Motion. Negative for: JVD, Lymphadenopathy Respiratory/Chest: Positive for: Clear to Auscultation Cardiovascular: Positive for: Regular Rate and Rhythm, Normal S1, S2. Negative for: Murmurs Abdomen: Positive for: Distention, Ostomy Tubes Lower Extremity: Positive for: Normal Inspection. Negative for: Edema, CALF TENDERNESS, Cyanosis Neurological: Positive for: GCS=15, Motor Func Grossly Intact, Norm Deep Tendon Reflexes Skin: Negative for: Rashes Psychiatric: Positive for: Oriented x 3 - Medications Active Medications: Active Medications Generic Name Dose Route Start Last Admin Trade Name Freq PRN Reason Stop Dose Admin Acetaminophen 650 mg 11/30/16 06:03 Tylenol 650 Mg Supp ND Q6 PRN Fever >100.4 F Hydromorphone HCl 2 mg 12/01/16 10:44 12/01/16 10:51 Dilaudid IVP 2 mg Q4H PRN Administration Pain, severe (8-10) Metronidazole 100 mls @ 100 mls/hr 11/30/16 09:00 12/01/16 08:17 Flagyl 500mg/100ml Ns IVPB 100 mls/hr Q8 [facility] Administration Piperacillin Sod/Tazobactam 100 mls @ 100 mls/hr 11/30/16 04:00 12/01/16 10: 10 Sod 3.375 gm/ Sodium Chloride IVPB 100 mls/hr Q6 [facility] Administration Lactated Ringer's 1,000 mls @ 150 mls/hr 11/30/16 16:56 12/01/16 05:00 Lactated Ringer's IV 150 mls/hr .Q6H40M [facility] Administration Ondansetron HCl 4 mg 11/30/16 13:06 Zofran Inj IVP Q6 PRN Nausea/Vomiting Pantoprazole Sodium 40 mg 12/01/16 09:00 12/01/16 08:15 Protonix Inj IVP 40 mg DAILY [facility] Administration - Patient Studies Lab Studies: Microbiology Studies 11/30/16 12:00 Gram Stain - Final Other: Please Indicate Wound Culture - Preliminary NO GROWTH AFTER 24 HOURS Lab Studies 12/01/16 12/01/16 12/01/16 Range/Units 04:45 04:45 04:45 WBC 23.0 H (4.8-10.8) K/uL RBC 4.65 (4.40-5.90) Mil/uL Hgb 14.6 (12.0-18.0) g/dL Hct 44.2 (35.0-51.0) % MCV 95.1 H (80.0-94.0) fl MCH 31.4 H (27.0-31.0) pg MCHC 33.1 (33.0-37.0) g/dL RDW 13.7 (11.5-14.5) % Plt Count 197 (130-400) K/uL MPV 7.6 (7.2-11.7) fl Neut % (Auto) 89.8 H (50.0-75.0) % Lymph % (Auto) 5.6 L (20.0-40.0) % Hubbard % (Auto) 4.6 (0.0-10.0) % Eos % (Auto) 0.0 (0.0-4.0) % Baso % (Auto) 0.0 (0.0-2.0) % Neut # 20.6 H (1.8-7.0) K/uL Lymph # 1.3 (1.0-4.3) K/uL Hubbard # 1.0 H (0.0-0.8) K/uL Eos # 0.0 (0.0-0.7) K/uL Baso # 0.0 (0.0-0.2) K/uL Sodium 142 (132-148) mmol/l Potassium 3.3 L (3.6-5.0) MMOL/L Chloride 109 H (98-107) mmol/L Carbon Dioxide 25 (22-30) mmol/L Anion Gap 11 (10-20) BUN 17 (9-20) mg/dl Creatinine 0.8 (0.8-1.5) mg/dL Est GFR ( Amer) > 60 Est GFR (Non-Af Amer) > 60 Random Glucose 123 H (75-110) mg/dL Lactic Acid 1.1 (0.7-2.1) MMOL/L Calcium 8.5 (8.4-10.2) mg/dL Total Bilirubin 0.9 (0.2-1.3) mg/dl AST 19 (17-59) U/L ALT 25 (21-72) U/L Alkaline Phosphatase 49 (38-126) U/L Total Protein 6.5 (6.3-8.2) G/DL Albumin 3.5 D (3.5-5.0) g/dL Globulin 3.0 (2.2-3.9) gm/dL Albumin/Globulin Ratio 1.2 (1.0-2.1) Blood Type Antibody Screen Crossmatch BBK History Checked 11/30/16 Range/Units 07:00 WBC (4.8-10.8) K/uL RBC (4.40-5.90) Mil/uL Hgb (12.0-18.0) g/dL Hct (35.0-51.0) % MCV (80.0-94.0) fl MCH (27.0-31.0) pg MCHC (33.0-37.0) g/dL RDW (11.5-14.5) % Plt Count (130-400) K/uL MPV (7.2-11.7) fl Neut % (Auto) (50.0-75.0) % Lymph % (Auto) (20.0-40.0) % Hubbard % (Auto) (0.0-10.0) % Eos % (Auto) (0.0-4.0) % Baso % (Auto) (0.0-2.0) % Neut # (1.8-7.0) K/uL Lymph # (1.0-4.3) K/uL Hubbard # (0.0-0.8) K/uL Eos # (0.0-0.7) K/uL Baso # (0.0-0.2) K/uL Sodium (132-148) mmol/l Potassium (3.6-5.0) MMOL/L Chloride (98-107) mmol/L Carbon Dioxide (22-30) mmol/L Anion Gap (10-20) BUN (9-20) mg/dl Creatinine (0.8-1.5) mg/dL Est GFR ( Amer) Est GFR (Non-Af Amer) Random Glucose (75-110) mg/dL Lactic Acid (0.7-2.1) MMOL/L Calcium (8.4-10.2) mg/dL Total Bilirubin (0.2-1.3) mg/dl AST (17-59) U/L ALT (21-72) U/L Alkaline Phosphatase (38-126) U/L Total Protein (6.3-8.2) G/DL Albumin (3.5-5.0) g/dL Globulin (2.2-3.9) gm/dL Albumin/Globulin Ratio (1.0-2.1) Blood Type A POSITIVE Antibody Screen Negative Crossmatch See Detail BBK History Checked No verified bt Laboratory Results - last 24 hr 11/30/16 12/01/16 12/01/16 07:00 04:45 04:45 WBC 23.0 H RBC 4.65 Hgb 14.6 Hct 44.2 MCV 95.1 H MCH 31.4 H MCHC 33.1 RDW 13.7 Plt Count 197 MPV 7.6 Neut % (Auto) 89.8 H Lymph % (Auto) 5.6 L Hubbard % (Auto) 4.6 Eos % (Auto) 0.0 Baso % (Auto) 0.0 Neut # 20.6 H Lymph # 1.3 Hubbard # 1.0 H Eos # 0.0 Baso # 0.0 Sodium 142 Potassium 3.3 L Chloride 109 H Carbon Dioxide 25 Anion Gap 11 BUN 17 Creatinine 0.8 Est GFR ( Amer) > 60 Est GFR (Non-Af Amer) > 60 Random Glucose 123 H Lactic Acid Calcium 8.5 Total Bilirubin 0.9 AST 19 ALT 25 Alkaline Phosphatase 49 Total Protein 6.5 Albumin 3.5 D Globulin 3.0 Albumin/Globulin Ratio 1.2 Blood Type A POSITIVE Antibody Screen Negative Crossmatch See Detail BBK History Checked No verified bt 12/01/16 04:45 WBC RBC Hgb Hct MCV MCH MCHC RDW Plt Count MPV Neut % (Auto) Lymph % (Auto) Hubbard % (Auto) Eos % (Auto) Baso % (Auto) Neut # Lymph # Hubbard # Eos # Baso # Sodium Potassium Chloride Carbon Dioxide Anion Gap BUN Creatinine Est GFR ( Amer) Est GFR (Non-Af Amer) Random Glucose Lactic Acid 1.1 Calcium Total Bilirubin AST ALT Alkaline Phosphatase Total Protein Albumin Globulin Albumin/Globulin Ratio Blood Type Antibody Screen Crossmatch BBK History Checked Review of Systems - Review of Systems All systems: reviewed and no additional remarkable complaints except - Constitutional Constitutional: Sweats. absent: Fever, Chills - Cardiovascular Cardiovascular: absent: Chest Pain at Rest, Dyspnea on Exertion, Palpitations - Respiratory Respiratory: absent: Cough, Wheezing, Chest Congestion, Excessive Mucous Production - Gastrointestinal Gastrointestinal: absent: Dyspepsia, Excessive Flatus - Neurological Neurological: absent: Dizziness, Focal Weakness, Headaches, Paresthesias Critical Care Progress Note - Extremities/Vascular Does the Patient have a Central Venous Catheter?: No Does the Patient need a Central Venous Catheter?: No Does the Patient have a Espinosa Catheter?: No Does the Patient need a Espinosa Catheter?: No - Prophylaxis GI Prophylaxis GI: PPI - Prophylaxis DVT Prophylaxis DVT: SCDs - Nutrition Nutrition: Nutrition Category Date Time Status NPO Diet [DIET] Diets 11/30/16 Breakfast Active Assessment/Plan - Assessment and Plan (Free Text) Assessment: Sigmoid Diverticulitis with perforation s/p Ex Lap with colon resection and colostomy Pre-op Hypokalemia Hypertension by history Plan: - Post-op mgmt as per General Surgery team - IVF hydration with K supplementation, LF fluids, check Mag / Phos levels. - Blood cultures, empiric abx coverage noted - Serial Lactate measurements normalized. - Will treat for sustained elevations in MAP above 110-120, if not pain- induced. - Episode of Diaphoresis: etiology?? onset of bacteremia?? watch temps, WBCs.
--- NOTE | 2016-12-01 15:17 | RAD ---
HISTORY: post ExLap, desaturation COMPARISON: Comparison is made to the previous study dated 11/29/2016 FINDINGS: LUNGS: Focal opacity seen at the left lung base may represent atelectasis. Suboptimal study due to poor inspiratory effort. PLEURA: No significant pleural effusion identified, no pneumothorax apparent. CARDIOVASCULAR: Normal. OSSEOUS STRUCTURES: No significant abnormalities. VISUALIZED UPPER ABDOMEN: Normal. OTHER FINDINGS: None. IMPRESSION: Opacity at the left lung base may represent atelectasis.
[2016-12-01] MEDS ORDERED: Pneumococcal 23-Valent Vaccine IM ONE (16:19)
[2016-12-02] MEDS: metroNIDAZOLE 500mg/100ml NS 100 ML IVPB SCH ×3 (00:03→16:13)
[2016-12-02] MEDS: Piperacillin/Tazobact 3.375 GM in Sodium Chloride 0.9% 100 ML IVPB SCH ×4 (03:44→21:35)
[2016-12-02 04:41] LABS: HEMATOCRIT 41.7 % (35.0-51.0); MEAN CELL VOLUME 95.2 fl (80.0-94.0); MEAN CORPUSCULAR HEMOGLOBIN 31.7 pg (27.0-31.0); MEAN CORPUSCULAR HGB CONC 33.4 g/dL (33.0-37.0); RED CELL DISTRIBUTION WIDTH 13.7 % (11.5-14.5); WHITE BLOOD COUNT 21.5 K/uL (4.8-10.8)
[2016-12-02 04:50] LABS: BLOOD UREA NITROGEN 27 mg/dl (9-20); CALCIUM 8.7 mg/dL (8.4-10.2); CARBON DIOXIDE 26 mmol/L (22-30); CHLORIDE 108 mmol/L (98-107); GFR AFRICAN-AMERICAN > 60; GLUCOSE,RANDOM 110 mg/dL (75-110); POTASSIUM 3.3 MMOL/L (3.6-5.0); SODIUM 143 mmol/l (132-148)
--- NOTE | 2016-12-02 07:35 | CP.PCM.PN ---
Subjective - Date & Time of Evaluation Date of Evaluation: 12/02/16 Time of Evaluation: 07:00 - Subjective Subjective: SURGERY PROGRESS NOTE FOR DR. SALGUERO 51M seen and examined at bedside. Patient resting comfortably. Pain improved, denies nausea/vomiting/fevers. NAEON. Objective - Vital Signs/Intake and Output Vital Signs (last 24 hours): Temp Pulse Resp BP Pulse Ox 98.4 F 92 H 25 H 166/85 H 95 12/02/16 03:45 12/02/16 06:00 12/02/16 06:00 12/02/16 06:00 12/02/16 06:00 Intake and Output: 12/02/16 12/02/16 06:59 18:59 Intake Total 2250 Output Total 500 Balance 1750 - Medications Medications: Current Medications Acetaminophen (Tylenol 650 Mg Supp) 650 mg [place] Q6 PRN PRN Reason: Fever >100.4 F Hydromorphone HCl (Dilaudid) 2 mg IVP Q4H PRN PRN Reason: Pain, severe (8-10) Last Admin: 12/02/16 03:49 Dose: 2 mg Metronidazole (Flagyl 500mg/100ml Ns) 100 mls @ 100 mls/hr IVPB Q8 [facility] Last Admin: 12/02/16 00:03 Dose: 100 mls/hr Piperacillin Sod/Tazobactam (Sod 3.375 gm/ Sodium Chloride) 100 mls @ 100 mls/ hr IVPB Q6 [facility] Last Admin: 12/02/16 03:44 Dose: 100 mls/hr Lactated Ringer's (Lactated Ringer's) 1,000 mls @ 150 mls/hr IV .Q6H40M [facility] Last Admin: 12/01/16 23:38 Dose: 150 mls/hr Ketorolac Tromethamine (Toradol) 30 mg IVP Q6 PRN PRN Reason: breakthrough pain Last Admin: 12/02/16 06:38 Dose: 30 mg Ondansetron HCl (Zofran Inj) 4 mg IVP Q6 PRN PRN Reason: Nausea/Vomiting Pantoprazole Sodium (Protonix Inj) 40 mg IVP DAILY [facility] Last Admin: 12/01/16 08:15 Dose: 40 mg - Labs Labs: 12/02/16 03:50 12/02/16 03:50 PT 10.0 Seconds (9.8-13.1) 11/29/16 22:30 INR 0.9 (0.9-1.2) 11/29/16 22:30 APTT 27.1 Seconds (25.6-37.1) 11/29/16 22:30 - Constitutional Appears: Non-toxic, No Acute Distress - Respiratory Exam Respiratory Exam: Clear to Ausculation Bilateral, NORMAL BREATHING PATTERN - Cardiovascular Exam Cardiovascular Exam: REGULAR RHYTHM, +S1, +S2 - GI/Abdominal Exam GI & Abdominal Exam: Distended, Soft. absent: Firm, Guarding, Rigid, Tenderness , Rebound Additional comments: Midline incision dressing dry and intact, colostomy in place with dark red liquid output - Neurological Exam Neurological Exam: Alert, Awake Assessment and Plan - Assessment and Plan (Free Text) Assessment: 51M with s/p hartmanns procedure POD2 Plan: - Pain control - continue IVF, Antibiotics - encourage ambulation/ Incentive spirometer - ostomy function - Currently NPO - continue to monitor labs Further recs discuss with Attending Richard Canales, PGY1
[2016-12-02] MEDS ORDERED: Potassium CL 10mEq/100ml 100 ML IVPB SCH (08:00)
[2016-12-02] MEDS ORDERED: Potassium CL 10 MEQ/50 ML 50 ML IVPB SCH (08:00)
--- NOTE | 2016-12-02 09:21 | CP.PCM.PN ---
Subjective - Date & Time of Evaluation Date of Evaluation: 12/02/16 Time of Evaluation: 09:21 - Subjective Subjective: no complaints, pain improving, no f/c, n/v/d. bw nad vs noted. case d/c w/ icu attending, surgical note reviewed. Objective - Vital Signs/Intake and Output Vital Signs (last 24 hours): Temp Pulse Resp BP Pulse Ox 98.4 F 92 H 25 H 166/85 H 95 12/02/16 03:45 12/02/16 06:00 12/02/16 06:00 12/02/16 06:00 12/02/16 06:00 Intake and Output: 12/02/16 12/02/16 06:59 18:59 Intake Total 2250 Output Total 500 Balance 1750 - Medications Medications: Current Medications Acetaminophen (Tylenol 650 Mg Supp) 650 mg [place] Q6 PRN PRN Reason: Fever >100.4 F Hydromorphone HCl (Dilaudid) 2 mg IVP Q4H PRN PRN Reason: Pain, severe (8-10) Last Admin: 12/02/16 08:18 Dose: 2 mg Metronidazole (Flagyl 500mg/100ml Ns) 100 mls @ 100 mls/hr IVPB Q8 [facility] Last Admin: 12/02/16 08:24 Dose: 100 mls/hr Piperacillin Sod/Tazobactam (Sod 3.375 gm/ Sodium Chloride) 100 mls @ 100 mls/ hr IVPB Q6 [facility] Last Admin: 12/02/16 03:44 Dose: 100 mls/hr Lactated Ringer's (Lactated Ringer's) 1,000 mls @ 150 mls/hr IV .Q6H40M [facility] Last Admin: 12/01/16 23:38 Dose: 150 mls/hr Potassium Chloride (Potassium Chloride 10 Meq/100 Ml) 100 mls @ 100 mls/hr IVPB Q1 [facility] Stop: 12/02/16 10:59 Ketorolac Tromethamine (Toradol) 30 mg IVP Q6 PRN PRN Reason: breakthrough pain Last Admin: 12/02/16 06:38 Dose: 30 mg Ondansetron HCl (Zofran Inj) 4 mg IVP Q6 PRN PRN Reason: Nausea/Vomiting Pantoprazole Sodium (Protonix Inj) 40 mg IVP DAILY [facility] Last Admin: 12/02/16 08:22 Dose: 40 mg - Labs Labs: 12/02/16 03:50 12/02/16 03:50 PT 10.0 Seconds (9.8-13.1) 11/29/16 22:30 INR 0.9 (0.9-1.2) 11/29/16 22:30 APTT 27.1 Seconds (25.6-37.1) 11/29/16 22:30 - Constitutional Appears: Well, Non-toxic, No Acute Distress - Head Exam Head Exam: ATRAUMATIC, NORMAL INSPECTION, NORMOCEPHALIC - Eye Exam Eye Exam: EOMI, Normal appearance, PERRL Pupil Exam: NORMAL ACCOMODATION, PERRL - ENT Exam ENT Exam: Mucous Membranes Moist, Normal Exam - Neck Exam Neck Exam: Full ROM, Normal Inspection. absent: Lymphadenopathy - Respiratory Exam Respiratory Exam: Clear to Ausculation Bilateral, NORMAL BREATHING PATTERN - Cardiovascular Exam Cardiovascular Exam: REGULAR RHYTHM, RRR, +S1, +S2. absent: Murmur - GI/Abdominal Exam GI & Abdominal Exam: Soft, Normal Bowel Sounds. absent: Tenderness Additional comments: ostomy noted, no blood at present - Extremities Exam Extremities Exam: Full ROM, Normal Capillary Refill, Normal Inspection. absent : Joint Swelling, Pedal Edema - Back Exam Back Exam: NORMAL INSPECTION - Neurological Exam Neurological Exam: Alert, Awake, CN II-XII Intact, Normal Gait, Oriented x3 - Psychiatric Exam Psychiatric exam: Normal Affect, Normal Mood - Skin Skin Exam: Dry, Intact, Normal Color, Warm Assessment and Plan (1) Perforation of sigmoid colon due to diverticulitis Status: Acute (2) DVT prophylaxis Status: Acute - Assessment and Plan (Free Text) Assessment: (1) Perforation of sigmoid colon due to diverticulitis Assessment and Plan: anbx-cipro,flagyl, zosyn, surgical consult pod 1 ivf icu care pain control f/u c/s thus far negative, lactate now noraml ?? need for ID consult if wbc does not start coming down significantly Status: Acute (2) DVT prophylaxis Assessment and Plan: scd and ae hose hold anticoag Status: Acute
[2016-12-02] MEDS: Potassium CL 10mEq/100ml 100 ML IVPB SCH ×2 (10:37→12:23)
--- NOTE | 2016-12-02 21:39 | PN ---
DATE: 12/02/2016 The patient in ICU, bed 431. TIME SPENT: 35 minutes. HISTORY OF PRESENT ILLNESS: The patient is seen and evaluated at the bedside. Events since admission reviewed. A 51-year-old male admitted with abdominal pain secondary to perforated diverticulitis status post El's procedure, postop day 2. Overnight, normotensive, afebrile, telemetry sinus rhythm/sinus tachycardia, no distress, on IV fluids/IV antibiotics. This morning, alert, awake, out of bed to chair. PHYSICAL EXAMINATION: VITAL SIGNS: Temperature 98.4, heart rate 92, blood pressure 166/85. Intake 2250, output 500, positive balance 1750. CHEST: Bilateral breath sounds. Clear to auscultation. HEART: Rhythm regular. S1, S2 normal intensity. ABDOMEN: Midline incision, dressing dry and intact, colostomy in place with dark red liquid output, mild distention of the abdomen. EXTREMITIES: No palpable cord. Peripheral pulses intact. NEUROLOGIC: Nonfocal. CURRENT MEDICATIONS: Tylenol 650 mg suppository per rectum q. 6 p.r.n., hydromorphone 2 mg IV q. 4 p.r.n., metronidazole 500 mg IV q. 8 hours, Zosyn 3.375 grams IV q. 6 hours, Ringers' lactate at 150 mL per hour, Toradol 30 mg IV q. 6 p.r.n., Protonix 40 IV daily, Zofran 4 every q. 6 p.r.n. LABORATORY DATA: WBC 21.5, hemoglobin 13.9, hematocrit 41.7, platelet count of 198. SMA-7: Sodium 143, potassium 3.3, chloride 108, CO2 26, blood urea nitrogen 27, creatinine 0.7, glucose 110. PT 10, INR 0.9, and PTT 27.1. IMPRESSION: Sigmoid diverticulitis with perforation, status post exploratory lap with colon resection and colostomy, preoperative hypokalemia persists on kcl supplement, hypertension by history, will closely monitor, continue postop management as per general surgery team, IV hydration. Follow blood culture, peritonitis on empiric antibiotic coverage. Continue antibiotics. DVT , Gi prophylaxis.Closely monitor blood pressure,add medication after optimizing analgesics for post operative pain. SCD for DVT prophylaxis. out of bed to chair as tolerated. keep head of bed 40 degree elevated. . George Razo MD cc: 170 TT: 12/02/2016 11:51:15 Confirmation # [id number] Dictation # [id number] MTDD
[2016-12-03] MEDS: metroNIDAZOLE 500mg/100ml NS 100 ML IVPB SCH ×3 (00:04→16:03)
[2016-12-03] MEDS: Lactated Ringer's 1,000 ML IV SCH ×2 (00:06→05:57)
--- NOTE | 2016-12-03 02:57 | CP.PCM.PN ---
Subjective - Date & Time of Evaluation Date of Evaluation: 12/03/16 Time of Evaluation: 07:00 - Subjective Subjective: SURGERY NOTE FOR DR. SALGUERO 51M seen and examined at bedside. Patient denies pain, nausea, vomiting. Objective - Vital Signs/Intake and Output Vital Signs (last 24 hours): Temp Pulse Resp BP Pulse Ox 97.5 F L 86 23 152/89 H 97 12/02/16 20:00 12/02/16 22:00 12/02/16 22:00 12/02/16 22:00 12/02/16 22:00 Intake and Output: 12/02/16 12/03/16 18:59 06:59 Intake Total 2000 450 Output Total 750 Balance 1250 450 - Medications Medications: Current Medications Acetaminophen (Tylenol 650 Mg Supp) 650 mg [place] Q6 PRN PRN Reason: Fever >100.4 F Hydromorphone HCl (Dilaudid) 2 mg IVP Q4H PRN PRN Reason: Pain, severe (8-10) Last Admin: 12/02/16 23:51 Dose: 2 mg Metronidazole (Flagyl 500mg/100ml Ns) 100 mls @ 100 mls/hr IVPB Q8 [facility] Last Admin: 12/03/16 00:04 Dose: 100 mls/hr Piperacillin Sod/Tazobactam (Sod 3.375 gm/ Sodium Chloride) 100 mls @ 100 mls/ hr IVPB Q6 [facility] Last Admin: 12/02/16 21:35 Dose: 100 mls/hr Lactated Ringer's (Lactated Ringer's) 1,000 mls @ 150 mls/hr IV .Q6H40M [facility] Last Admin: 12/03/16 00:06 Dose: 150 mls/hr Ketorolac Tromethamine (Toradol) 30 mg IVP Q6 PRN PRN Reason: breakthrough pain Last Admin: 12/03/16 02:30 Dose: 30 mg Ondansetron HCl (Zofran Inj) 4 mg IVP Q6 PRN PRN Reason: Nausea/Vomiting Pantoprazole Sodium (Protonix Inj) 40 mg IVP DAILY [facility] Last Admin: 12/02/16 08:22 Dose: 40 mg - Labs Labs: 12/02/16 03:50 12/02/16 03:50 PT 10.0 Seconds (9.8-13.1) 11/29/16 22:30 INR 0.9 (0.9-1.2) 11/29/16 22:30 APTT 27.1 Seconds (25.6-37.1) 11/29/16 22:30 - Constitutional Appears: Non-toxic, No Acute Distress - Respiratory Exam Respiratory Exam: Clear to Ausculation Bilateral, NORMAL BREATHING PATTERN - Cardiovascular Exam Cardiovascular Exam: REGULAR RHYTHM, +S1, +S2 - GI/Abdominal Exam GI & Abdominal Exam: Soft. absent: Distended, Firm, Guarding, Rigid, Rebound Additional comments: colostomy in place with liquid output, staple in place - no sign of infection - Neurological Exam Neurological Exam: Alert, Awake - Skin Skin Exam: Intact, Normal Color, Warm Assessment and Plan - Assessment and Plan (Free Text) Assessment: 51M with s/p hartmanns procedure POD3 Plan: - continue Pain control - continue IVF, Antibiotics - encourage ambulation/ Incentive spirometer - ostomy function - advance diet as per attending - monitor AM WBC/Potassium - can transfer to the floors Further recs discuss with Attending Richard Canales, PGY1
[2016-12-03] MEDS: Piperacillin/Tazobact 3.375 GM in Sodium Chloride 0.9% 100 ML IVPB SCH ×5 (04:00→22:00)
[2016-12-03 05:43] LABS: BASO # 0.1 K/uL (0.0-0.2); BASO % 0.4 % (0.0-2.0); EOS # 0.2 K/uL (0.0-0.7); EOS % 1.2 % (0.0-4.0); HEMATOCRIT 37.2 % (35.0-51.0); LYMPH # 1.4 K/uL (1.0-4.3); LYMPH % 9.7 % (20.0-40.0); MEAN CELL VOLUME 94.8 fl (80.0-94.0); MEAN CORPUSCULAR HEMOGLOBIN 31.9 pg (27.0-31.0); MEAN CORPUSCULAR HGB CONC 33.7 g/dL (33.0-37.0); MEAN PLATELET VOLUME 7.6 fl (7.2-11.7); MONO # 0.9 K/uL (0.0-0.8); NEUT % 82.7 % (50.0-75.0); PLATELET COUNT 198 K/uL (130-400); RED CELL DISTRIBUTION WIDTH 13.4 % (11.5-14.5); WHITE BLOOD COUNT 14.5 K/uL (4.8-10.8)
[2016-12-03 05:58] LABS: ALKALINE PHOSPHATASE 42 U/L (38-126); ALT/SGPT 22 U/L (21-72); AST/SGOT 16 U/L (17-59); BILIRUBIN,TOTAL 0.5 mg/dl (0.2-1.3); BLOOD UREA NITROGEN 29 mg/dl (9-20); CALCIUM 8.1 mg/dL (8.4-10.2); CARBON DIOXIDE 24 mmol/L (22-30); CHLORIDE 111 mmol/L (98-107); GFR AFRICAN-AMERICAN > 60; GLUCOSE,RANDOM 88 mg/dL (75-110); POTASSIUM 3.3 MMOL/L (3.6-5.0); SODIUM 143 mmol/l (132-148); TOTAL PROTEIN 6.3 G/DL (6.3-8.2)
[2016-12-03] MEDS: Sodium Chloride 0.9% 1,000 ML IV SCH ×3 (08:51→23:00)
[2016-12-03 10:58] LABS: NEUTROPHIL 83 % (42-75); TOTAL CELLS COUNTED 100
[2016-12-03 10:59] LABS: EOSINOPHIL 2 % (0-7)
[2016-12-03] MEDS: Potassium Chloride 10 mEq ER Tab PO SCH (12:09)
[2016-12-03] MEDS: Metoprolol Succinate 25 mg XL Tab PO SCH (12:09)
--- NOTE | 2016-12-03 12:18 | CP.PCM.PN ---
Subjective - Date & Time of Evaluation Date of Evaluation: 12/03/16 Time of Evaluation: 12:18 - Subjective Subjective: doing well, pain controlled, wbc now 14 no f/c, n/v/d ostomy functioing. case d/c w/ dr jackson Objective - Vital Signs/Intake and Output Vital Signs (last 24 hours): Temp Pulse Resp BP Pulse Ox 98.5 F 80 18 170/95 H 96 12/03/16 11:17 12/03/16 11:17 12/03/16 11:17 12/03/16 11:17 12/03/16 11:17 Intake and Output: 12/03/16 12/03/16 06:59 18:59 Intake Total 1400 1010 Output Total 1100 Balance 300 1010 - Medications Medications: Current Medications Acetaminophen (Tylenol 650 Mg Supp) 650 mg [place] Q6 PRN PRN Reason: Fever >100.4 F Metronidazole (Flagyl 500mg/100ml Ns) 100 mls @ 100 mls/hr IVPB Q8 [facility] Last Admin: 12/03/16 08:28 Dose: 100 mls/hr Piperacillin Sod/Tazobactam (Sod 3.375 gm/ Sodium Chloride) 100 mls @ 100 mls/ hr IVPB Q6 [facility] Last Admin: 12/03/16 09:23 Dose: 100 mls/hr Sodium Chloride (Sodium Chloride 0.9%) 1,000 mls @ 150 mls/hr IV .Q6H40M [facility] Stop: 12/04/16 08:40 Last Admin: 12/03/16 08:51 Dose: 150 mls/hr Ketorolac Tromethamine (Toradol) 30 mg IVP Q4 PRN PRN Reason: Pain, moderate (4-7) Metoprolol Succinate (Toprol Xl) 25 mg PO DAILY [facility] Last Admin: 12/03/16 12:09 Dose: 25 mg Ondansetron HCl (Zofran Inj) 4 mg IVP Q6 PRN PRN Reason: Nausea/Vomiting Pantoprazole Sodium (Protonix Inj) 40 mg IVP DAILY [facility] Last Admin: 12/03/16 08:27 Dose: 40 mg Potassium Chloride (Klor-Con 10) 10 meq PO DAILY [facility] Last Admin: 12/03/16 12:09 Dose: 10 meq - Labs Labs: 12/03/16 05:00 12/03/16 05:00 PT 10.0 Seconds (9.8-13.1) 11/29/16 22:30 INR 0.9 (0.9-1.2) 11/29/16 22:30 APTT 27.1 Seconds (25.6-37.1) 11/29/16 22:30 - Constitutional Appears: Well, Non-toxic, No Acute Distress - Head Exam Head Exam: ATRAUMATIC, NORMAL INSPECTION, NORMOCEPHALIC - Eye Exam Eye Exam: EOMI, Normal appearance, PERRL Pupil Exam: NORMAL ACCOMODATION, PERRL - ENT Exam ENT Exam: Mucous Membranes Moist, Normal Exam - Neck Exam Neck Exam: Full ROM, Normal Inspection. absent: Lymphadenopathy - Respiratory Exam Respiratory Exam: Clear to Ausculation Bilateral, NORMAL BREATHING PATTERN - Cardiovascular Exam Cardiovascular Exam: REGULAR RHYTHM, RRR, +S1, +S2. absent: Murmur - GI/Abdominal Exam GI & Abdominal Exam: Soft, Normal Bowel Sounds. absent: Tenderness - Extremities Exam Extremities Exam: Full ROM, Normal Capillary Refill, Normal Inspection. absent : Joint Swelling, Pedal Edema - Back Exam Back Exam: NORMAL INSPECTION - Neurological Exam Neurological Exam: Alert, Awake, CN II-XII Intact, Normal Gait, Oriented x3 - Psychiatric Exam Psychiatric exam: Normal Affect, Normal Mood - Skin Skin Exam: Dry, Intact, Normal Color, Warm Assessment and Plan (1) Perforation of sigmoid colon due to diverticulitis Assessment & Plan: surgery pod 3 pain control cont nabx ostomy functionwell cont ot moniro closely Status: Acute (2) DVT prophylaxis Assessment & Plan: scd nad ae hose anticoag per surgery ambulation pt/ot Status: Acute - Assessment and Plan (Free Text) Assessment: hypokalemia-perez mnonitor
--- NOTE | 2016-12-03 12:42 | PN ---
DATE: 12/03/2016 LOCATION: The patient in ICU, bed 431. TIME SPENT: 35 minutes. HISTORY OF PRESENT ILLNESS: The patient is seen and examined at the bedside. Events since admission reviewed. Past medical, surgical and social history noted. A 51-year-old male admitted with abdominal pain, perforated diverticulitis, status post exploratory laparotomy, resection and ileostomy, postop day 3. Overnight, low to high systolic blood pressure, afebrile. Telemetry: Sinus rhythm. This morning, alert, awake, follows commands, appropriate, complaining of hiccups but no nausea or vomiting. Ileostomy with liquid stool noted. Abdomen distended but less compared to admission. PHYSICAL EXAMINATION: VITAL SIGNS: Temperature 98.3, heart rate 80-87 and regular, blood pressure 175 /100 meam/94, saturation 93% oxygen supplement 2 liters nasal cannula. Intake 3400, output 1850. Positive balance of 1550. Urine output 1800_. Weight 220 pounds. HEENT: Sclerae are anicteric. NECK: Supple. Trachea central. CHEST: Bilateral breath sounds. Clear to auscultation. HEART: Rhythm regular. S1, S2 normal. No audible murmur. ABDOMEN: Midline incision rashid are intact. Ileostomy in place with dark colored liquid output. Mild distention. EXTREMITIES: No palpable cord. Dorsalis pedis palpable. SKIN: Without rash. NEUROLOGIC: Nonfocal. CURRENT MEDICATIONS: Zosyn 3.375 grams IV q. 6 hours, Flagyl 500 mg IV q. 8 hours, Toradol 30 IV q. 4 hours p.r.n., Tylenol 650 q. 6 hours p.r.n. for temperature more than 100.4, potassium supplement, IV fluid sodium chloride at 150 mL per hour. LABORATORY DATA: WBC 14.5, hemoglobin 12.5, hematocrit 37.2, platelet count of 198, neutrophils 82.7, lymphocytes 9.7, monocytes 6, eosinophils 1.2, PT 10, INR 0.9, PTT 27.1. SMA-7: Sodium 143, potassium 3.3, chloride of 111, CO2 of 24, blood urea nitrogen 29, creatinine 0.9. Lactic acid 1.1, calcium 8.1, total bilirubin 2.5, AST 16, ALT 22, alkaline phosphatase 42, total protein 6.3 , albumin 3.2. Random glucose 88. Urinalysis is negative. Microbiology: Wound culture gram-negative rods. MRSA negative. Blood culture: No growth, no organisms. No polymorphonuclear WBC, no organism noted, preliminary gram- negative rods, identity pending. ASSESSMENT: 1. Postop #3 status post El's procedure: Continue pain control, IV fluid. Increase ambulation. Incentive spirometry. Ileostomy function. Diet advanced to liquids, advance as tolerated. 2. Infectious disease: Perforated diverticulitis with peritonitis. WBC trending down. Continue Flagyl and Zosyn. 3. Cardiac: Blood pressure still elevated, probably due to pain. Had blood pressure medication taking at home.add metoprolol 25 mg daily 4. Pulmonary: Continue incentive spirometry. 5. Gastrointestinal: Started on clear liquids; monitor tolerance. 6. Renal: Hypokalemia. On supplement. 7. Hematology: Leukocytosis trending down. Hemoglobin remains stable. 8. Continue deep venous thrombosis and gastrointestinal prophylaxis. Encourage ambulation as tolerated. 9. Wound care and ileostomy care as per surgery. George Razo MD cc: 170 TT: 12/03/2016 12:41:11 Confirmation # [id number] Dictation # [id number] ln MTDD
[2016-12-04] MEDS: metroNIDAZOLE 500mg/100ml NS 100 ML IVPB SCH ×3 (00:21→16:49)
[2016-12-04] MEDS: Piperacillin/Tazobact 3.375 GM in Sodium Chloride 0.9% 100 ML IVPB SCH ×5 (03:39→23:16)
[2016-12-04] MEDS: Sodium Chloride 0.9% 1,000 ML IV SCH (05:21)
[2016-12-04 06:15] LABS: BASO # 0.1 K/uL (0.0-0.2); BASO % 0.6 % (0.0-2.0); EOS # 0.2 K/uL (0.0-0.7); EOS % 1.5 % (0.0-4.0); LYMPH # 1.6 K/uL (1.0-4.3); LYMPH % 14.8 % (20.0-40.0); MEAN CELL VOLUME 95.1 fl (80.0-94.0); MEAN CORPUSCULAR HEMOGLOBIN 31.9 pg (27.0-31.0); MEAN CORPUSCULAR HGB CONC 33.5 g/dL (33.0-37.0); MEAN PLATELET VOLUME 7.6 fl (7.2-11.7); MONO # 0.9 K/uL (0.0-0.8); NEUT % 75.1 % (50.0-75.0); RED CELL DISTRIBUTION WIDTH 13.3 % (11.5-14.5); WHITE BLOOD COUNT 10.7 K/uL (4.8-10.8)
[2016-12-04 06:53] LABS: ALKALINE PHOSPHATASE 40 U/L (38-126); ALT/SGPT 27 U/L (21-72); AST/SGOT 28 U/L (17-59); BILIRUBIN,TOTAL 0.7 mg/dl (0.2-1.3); BLOOD UREA NITROGEN 23 mg/dl (9-20); CALCIUM 7.8 mg/dL (8.4-10.2); CARBON DIOXIDE 24 mmol/L (22-30); CHLORIDE 109 mmol/L (98-107); GFR AFRICAN-AMERICAN > 60; GLUCOSE,RANDOM 92 mg/dL (75-110); SODIUM 142 mmol/l (132-148); TOTAL PROTEIN 5.9 G/DL (6.3-8.2)
--- NOTE | 2016-12-04 07:32 | CP.PCM.PN ---
Subjective - Date & Time of Evaluation Date of Evaluation: 12/04/16 Time of Evaluation: 07:32 - Subjective Subjective: denies complaints. no f/c, n/v/d. ostomy draining formed material. for pt/ot eval cont w/ surgery. d/c later this week Objective - Vital Signs/Intake and Output Vital Signs (last 24 hours): Temp Pulse Resp BP Pulse Ox 98.7 F 68 20 152/76 H 98 12/04/16 01:01 12/04/16 01:01 12/04/16 01:01 12/04/16 01:01 12/04/16 01:01 Intake and Output: 12/04/16 12/04/16 06:59 18:59 Output Total 700 Balance -700 - Medications Medications: Current Medications Acetaminophen (Tylenol 650 Mg Supp) 650 mg [place] Q6 PRN PRN Reason: Fever >100.4 F Metronidazole (Flagyl 500mg/100ml Ns) 100 mls @ 100 mls/hr IVPB Q8 [facility] Last Admin: 12/04/16 00:21 Dose: 100 mls/hr Piperacillin Sod/Tazobactam (Sod 3.375 gm/ Sodium Chloride) 100 mls @ 100 mls/ hr IVPB Q6 [facility] Last Admin: 12/04/16 03:39 Dose: 100 mls/hr Sodium Chloride (Sodium Chloride 0.9%) 1,000 mls @ 150 mls/hr IV .Q6H40M [facility] Stop: 12/04/16 08:40 Last Admin: 12/04/16 05:21 Dose: 150 mls/hr Ketorolac Tromethamine (Toradol) 30 mg IVP Q4 PRN PRN Reason: Pain, moderate (4-7) Last Admin: 12/04/16 03:42 Dose: 30 mg Metoprolol Succinate (Toprol Xl) 25 mg PO DAILY [facility] Last Admin: 12/03/16 12:09 Dose: 25 mg Ondansetron HCl (Zofran Inj) 4 mg IVP Q6 PRN PRN Reason: Nausea/Vomiting Pantoprazole Sodium (Protonix Inj) 40 mg IVP DAILY [facility] Last Admin: 12/03/16 08:27 Dose: 40 mg Potassium Chloride (Klor-Con 10) 10 meq PO DAILY [facility] Last Admin: 12/03/16 12:09 Dose: 10 meq - Labs Labs: 12/04/16 05:45 12/04/16 05:45 PT 10.0 Seconds (9.8-13.1) 11/29/16 22:30 INR 0.9 (0.9-1.2) 11/29/16 22:30 APTT 27.1 Seconds (25.6-37.1) 11/29/16 22:30 - Constitutional Appears: Well, Non-toxic, No Acute Distress - Head Exam Head Exam: ATRAUMATIC, NORMAL INSPECTION, NORMOCEPHALIC - Eye Exam Eye Exam: EOMI, Normal appearance, PERRL Pupil Exam: NORMAL ACCOMODATION, PERRL - ENT Exam ENT Exam: Mucous Membranes Moist, Normal Exam - Neck Exam Neck Exam: Full ROM, Normal Inspection. absent: Lymphadenopathy - Respiratory Exam Respiratory Exam: Clear to Ausculation Bilateral, NORMAL BREATHING PATTERN - Cardiovascular Exam Cardiovascular Exam: REGULAR RHYTHM, RRR, +S1, +S2. absent: Murmur - GI/Abdominal Exam GI & Abdominal Exam: Soft, Normal Bowel Sounds. absent: Tenderness - Extremities Exam Extremities Exam: Full ROM, Normal Capillary Refill, Normal Inspection. absent : Joint Swelling, Pedal Edema - Back Exam Back Exam: NORMAL INSPECTION - Neurological Exam Neurological Exam: Alert, Awake, CN II-XII Intact, Normal Gait, Oriented x3 - Psychiatric Exam Psychiatric exam: Normal Affect, Normal Mood - Skin Skin Exam: Dry, Intact, Normal Color, Warm Assessment and Plan (1) Perforation of sigmoid colon due to diverticulitis Assessment & Plan: cont surgical f/u pain control pt/ot ostomy care anbx c/s noted Status: Acute (2) DVT prophylaxis Assessment & Plan: scd nad ae hose anticoag per surgery pt/ot for ambulation Status: Acute
[2016-12-04] MEDS ORDERED: Oxycodone/Acetaminophen 5/325 mg Tab PO PRN (07:39)
[2016-12-04] MEDS: Potassium Chloride 10 mEq ER Tab PO SCH (09:00)
[2016-12-04] MEDS: Metoprolol Succinate 25 mg XL Tab PO SCH (09:00)
[2016-12-04] MEDS: Potassium Chloride 20 mEq ER Tab PO SCH (09:08)
[2016-12-04] MEDS: Oxycodone/Acetaminophen 5/325 mg Tab PO PRN ×3 (09:09→20:14)
--- NOTE | 2016-12-04 10:34 | CP.PCM.PN ---
Subjective - Date & Time of Evaluation Date of Evaluation: 12/04/16 Time of Evaluation: 10:05 - Subjective Subjective: Patient was seen and examined at the bedside. Tolerating clear liquid diet. Pain is well controlled. Objective - Vital Signs/Intake and Output Vital Signs (last 24 hours): Temp Pulse Resp BP Pulse Ox 98.8 F 60 20 158/84 H 95 12/04/16 07:33 12/04/16 09:00 12/04/16 07:33 12/04/16 09:00 12/04/16 07:33 Intake and Output: 12/04/16 12/04/16 06:59 18:59 Output Total 700 Balance -700 - Medications Medications: Current Medications Acetaminophen (Tylenol 650 Mg Supp) 650 mg [place] Q6 PRN PRN Reason: Fever >100.4 F Metronidazole (Flagyl 500mg/100ml Ns) 100 mls @ 100 mls/hr IVPB Q8 [facility] Last Admin: 12/04/16 09:00 Dose: 100 mls/hr Piperacillin Sod/Tazobactam (Sod 3.375 gm/ Sodium Chloride) 100 mls @ 100 mls/ hr IVPB Q6 [facility] Last Admin: 12/04/16 03:39 Dose: 100 mls/hr Potassium Chloride (Potassium Chloride 10 Meq/100 Ml) 100 mls @ 100 mls/hr IVPB Q1 [facility] Stop: 12/04/16 11:59 Ketorolac Tromethamine (Toradol) 15 mg IM Q6 PRN PRN Reason: Pain, moderate (4-7) Stop: 12/05/16 00:00 Metoprolol Succinate (Toprol Xl) 25 mg PO DAILY [facility] Last Admin: 12/04/16 09:00 Dose: 25 mg Ondansetron HCl (Zofran Inj) 4 mg IVP Q6 PRN PRN Reason: Nausea/Vomiting Oxycodone/Acetaminophen (Percocet 5/325 Mg Tab) 2 tab PO Q6 PRN PRN Reason: Pain, severe (8-10) Stop: 12/07/16 07:40 Last Admin: 12/04/16 09:09 Dose: 2 tab Pantoprazole Sodium (Protonix Inj) 40 mg IVP DAILY [facility] Last Admin: 12/04/16 09:00 Dose: 40 mg Potassium Chloride (Klor-Con 10) 10 meq PO DAILY [facility] Last Admin: 12/04/16 09:00 Dose: 10 meq Potassium Chloride (K-Dur 20 Meq Er Tab) 40 meq PO DAILY [facility] Last Admin: 12/04/16 09:08 Dose: 40 meq - Labs Labs: 12/04/16 05:45 12/04/16 05:45 PT 10.0 Seconds (9.8-13.1) 11/29/16 22:30 INR 0.9 (0.9-1.2) 11/29/16 22:30 APTT 27.1 Seconds (25.6-37.1) 11/29/16 22:30 - Constitutional Appears: Well, Non-toxic, No Acute Distress - Head Exam Head Exam: ATRAUMATIC, NORMAL INSPECTION, NORMOCEPHALIC - Eye Exam Eye Exam: EOMI, Normal appearance, PERRL Pupil Exam: NORMAL ACCOMODATION, PERRL - ENT Exam ENT Exam: Mucous Membranes Moist, Normal Exam - Neck Exam Neck Exam: Full ROM, Normal Inspection - Respiratory Exam Respiratory Exam: Clear to Ausculation Bilateral, NORMAL BREATHING PATTERN - Cardiovascular Exam Cardiovascular Exam: REGULAR RHYTHM, +S1, +S2 - GI/Abdominal Exam GI & Abdominal Exam: Soft, Normal Bowel Sounds Additional comments: Mild annelise-incisional tenderness, very mildly distended, BS+, no rebound, no guarding, incision clean, no erythema, no drainage, rashid in place, colostomy in the LLQ - Rectal Exam Rectal Exam: Deferred - Extremities Exam Extremities Exam: Full ROM, Normal Inspection - Neurological Exam Neurological Exam: Alert, Awake, Oriented x3 - Psychiatric Exam Psychiatric exam: Normal Affect, Normal Mood - Skin Skin Exam: Dry, Intact, Normal Color, Warm Assessment and Plan - Assessment and Plan (Free Text) Assessment: 51 y.o. male s/p El's procedure Plan: - Start low residue diet - pain control - Continue antibiotics - Zofran prn - Insentive spirometry - DVT ppx - Out of bed and ambulate - Repeat labs in am - Will follow
[2016-12-04] MEDS: Potassium CL 10mEq/100ml 100 ML IVPB SCH ×4 (12:15→16:43)
[2016-12-05] MEDS: metroNIDAZOLE 500mg/100ml NS 100 ML IVPB SCH ×3 (01:08→17:15)
[2016-12-05] MEDS: Oxycodone/Acetaminophen 5/325 mg Tab PO PRN ×3 (02:08→20:34)
[2016-12-05] MEDS: Piperacillin/Tazobact 3.375 GM in Sodium Chloride 0.9% 100 ML IVPB SCH ×4 (04:32→20:59)
--- NOTE | 2016-12-05 07:40 | CP.PCM.PN ---
Subjective - Date & Time of Evaluation Date of Evaluation: 12/05/16 Time of Evaluation: 07:40 - Subjective Subjective: no complaints, f/c, n/v/d. ostomy functioning well. pt for possible dc thurs bw noted. hypokalemia persistent Objective - Vital Signs/Intake and Output Vital Signs (last 24 hours): Temp Pulse Resp BP Pulse Ox 98 F 62 20 165/88 H 96 12/05/16 07:38 12/05/16 07:38 12/05/16 07:38 12/05/16 07:38 12/05/16 07:38 Intake and Output: 12/05/16 12/05/16 06:59 18:59 Intake Total 1700 Output Total 1200 Balance 500 - Medications Medications: Current Medications Acetaminophen (Tylenol 650 Mg Supp) 650 mg [place] Q6 PRN PRN Reason: Fever >100.4 F Enoxaparin Sodium (Lovenox) 40 mg SC DAILY [facility] PRN Reason: Protocol Metronidazole (Flagyl 500mg/100ml Ns) 100 mls @ 100 mls/hr IVPB Q8 [facility] Last Admin: 12/05/16 01:08 Dose: 100 mls/hr Piperacillin Sod/Tazobactam (Sod 3.375 gm/ Sodium Chloride) 100 mls @ 100 mls/ hr IVPB Q6 [facility] Last Admin: 12/05/16 04:32 Dose: 100 mls/hr Metoprolol Succinate (Toprol Xl) 25 mg PO DAILY [facility] Last Admin: 12/04/16 09:00 Dose: 25 mg Ondansetron HCl (Zofran Inj) 4 mg IVP Q6 PRN PRN Reason: Nausea/Vomiting Oxycodone/Acetaminophen (Percocet 5/325 Mg Tab) 2 tab PO Q6 PRN PRN Reason: Pain, severe (8-10) Stop: 12/07/16 07:40 Last Admin: 12/05/16 02:08 Dose: 2 tab Pantoprazole Sodium (Protonix Inj) 40 mg IVP DAILY [facility] Last Admin: 12/04/16 09:00 Dose: 40 mg Potassium Chloride (Klor-Con 10) 10 meq PO DAILY [facility] Last Admin: 12/04/16 09:00 Dose: 10 meq Potassium Chloride (K-Dur 20 Meq Er Tab) 40 meq PO DAILY [facility] Last Admin: 12/04/16 09:08 Dose: 40 meq - Labs Labs: 12/04/16 05:45 12/04/16 05:45 PT 10.0 Seconds (9.8-13.1) 11/29/16 22:30 INR 0.9 (0.9-1.2) 11/29/16 22:30 APTT 27.1 Seconds (25.6-37.1) 11/29/16 22:30 - Constitutional Appears: Well, Non-toxic, No Acute Distress - Head Exam Head Exam: ATRAUMATIC, NORMAL INSPECTION, NORMOCEPHALIC - Eye Exam Eye Exam: EOMI, Normal appearance, PERRL Pupil Exam: NORMAL ACCOMODATION, PERRL - ENT Exam ENT Exam: Mucous Membranes Moist, Normal Exam - Neck Exam Neck Exam: Full ROM, Normal Inspection. absent: Lymphadenopathy - Respiratory Exam Respiratory Exam: Clear to Ausculation Bilateral, NORMAL BREATHING PATTERN - Cardiovascular Exam Cardiovascular Exam: REGULAR RHYTHM, RRR, +S1, +S2. absent: Murmur - GI/Abdominal Exam GI & Abdominal Exam: Soft, Normal Bowel Sounds. absent: Tenderness - Extremities Exam Extremities Exam: Full ROM, Normal Capillary Refill, Normal Inspection. absent : Joint Swelling, Pedal Edema - Back Exam Back Exam: NORMAL INSPECTION - Neurological Exam Neurological Exam: Alert, Awake, CN II-XII Intact, Normal Gait, Oriented x3 - Psychiatric Exam Psychiatric exam: Normal Affect, Normal Mood - Skin Skin Exam: Dry, Intact, Normal Color, Warm Assessment and Plan (1) Perforation of sigmoid colon due to diverticulitis Assessment & Plan: cont to follow w/ surgery pain control anbx ouptt f/u is being arranged by SW/DAKOTA Status: Acute (2) DVT prophylaxis Assessment & Plan: scd and aheose lovenox ambulation Status: Acute (3) Hypokalemia Assessment & Plan: kcl, monitor k Status: Acute
[2016-12-05 07:58] LABS: HEMATOCRIT 35.3 % (35.0-51.0); MEAN CELL VOLUME 95.4 fl (80.0-94.0); MEAN CORPUSCULAR HEMOGLOBIN 31.5 pg (27.0-31.0); RED CELL DISTRIBUTION WIDTH 13.5 % (11.5-14.5); WHITE BLOOD COUNT 11.1 K/uL (4.8-10.8)
[2016-12-05 08:20] LABS: ALKALINE PHOSPHATASE 37 U/L (38-126); ALT/SGPT 31 U/L (21-72); AST/SGOT 20 U/L (17-59); BILIRUBIN,TOTAL 0.5 mg/dl (0.2-1.3); BLOOD UREA NITROGEN 13 mg/dl (9-20); CALCIUM 7.8 mg/dL (8.4-10.2); CARBON DIOXIDE 23 mmol/L (22-30); CHLORIDE 110 mmol/L (98-107); GFR AFRICAN-AMERICAN > 60; GLUCOSE,RANDOM 80 mg/dL (75-110); POTASSIUM 3.1 MMOL/L (3.6-5.0); SODIUM 140 mmol/l (132-148); TOTAL PROTEIN 5.6 G/DL (6.3-8.2)
[2016-12-05] MEDS: Enoxaparin 40 mg Syringe SC SCH (09:03)
[2016-12-05] MEDS: Metoprolol Succinate 25 mg XL Tab PO SCH (09:06)
[2016-12-05] MEDS: Potassium Chloride 20 mEq ER Tab PO SCH (09:07)
--- NOTE | 2016-12-05 09:56 | CP.PCM.PN ---
Subjective - Date & Time of Evaluation Date of Evaluation: 12/05/16 Time of Evaluation: 09:40 - Subjective Subjective: Patient was seen and examined at the bedside. Tolerating low residue diet. Objective - Vital Signs/Intake and Output Vital Signs (last 24 hours): Temp Pulse Resp BP Pulse Ox 98 F 62 20 165/88 H 96 12/05/16 07:38 12/05/16 07:38 12/05/16 07:38 12/05/16 07:38 12/05/16 07:38 Intake and Output: 12/05/16 12/05/16 06:59 18:59 Intake Total 1700 Output Total 1200 Balance 500 - Medications Medications: Current Medications Acetaminophen (Tylenol 650 Mg Supp) 650 mg [place] Q6 PRN PRN Reason: Fever >100.4 F Enoxaparin Sodium (Lovenox) 40 mg SC DAILY [facility] PRN Reason: Protocol Last Admin: 12/05/16 09:03 Dose: 40 mg Metronidazole (Flagyl 500mg/100ml Ns) 100 mls @ 100 mls/hr IVPB Q8 [facility] Last Admin: 12/05/16 09:07 Dose: 100 mls/hr Piperacillin Sod/Tazobactam (Sod 3.375 gm/ Sodium Chloride) 100 mls @ 100 mls/ hr IVPB Q6 [facility] Last Admin: 12/05/16 09:07 Dose: 100 mls/hr Potassium Chloride (Potassium Chloride 10 Meq/100 Ml) 100 mls @ 100 mls/hr IVPB Q1 [facility] Stop: 12/05/16 12:59 Metoprolol Succinate (Toprol Xl) 25 mg PO DAILY [facility] Last Admin: 12/05/16 09:06 Dose: 25 mg Ondansetron HCl (Zofran Inj) 4 mg IVP Q6 PRN PRN Reason: Nausea/Vomiting Oxycodone/Acetaminophen (Percocet 5/325 Mg Tab) 2 tab PO Q6 PRN PRN Reason: Pain, severe (8-10) Stop: 12/07/16 07:40 Last Admin: 12/05/16 02:08 Dose: 2 tab Pantoprazole Sodium (Protonix Inj) 40 mg IVP DAILY [facility] Last Admin: 12/05/16 09:05 Dose: 40 mg Potassium Chloride (Klor-Con 10) 10 meq PO DAILY [facility] Last Admin: 12/04/16 09:00 Dose: 10 meq Potassium Chloride (K-Dur 20 Meq Er Tab) 40 meq PO DAILY [facility] Last Admin: 12/05/16 09:07 Dose: 40 meq - Labs Labs: 12/05/16 06:55 12/05/16 06:55 PT 10.0 Seconds (9.8-13.1) 11/29/16 22:30 INR 0.9 (0.9-1.2) 11/29/16 22:30 APTT 27.1 Seconds (25.6-37.1) 11/29/16 22:30 - Constitutional Appears: Well, Non-toxic, No Acute Distress - Head Exam Head Exam: ATRAUMATIC, NORMAL INSPECTION, NORMOCEPHALIC - Eye Exam Eye Exam: EOMI, Normal appearance, PERRL Pupil Exam: NORMAL ACCOMODATION, PERRL - ENT Exam ENT Exam: Mucous Membranes Moist, Normal Exam - Neck Exam Neck Exam: Full ROM, Normal Inspection - Respiratory Exam Respiratory Exam: Clear to Ausculation Bilateral, NORMAL BREATHING PATTERN - Cardiovascular Exam Cardiovascular Exam: REGULAR RHYTHM, +S1, +S2 - GI/Abdominal Exam GI & Abdominal Exam: Soft, Normal Bowel Sounds Additional comments: NT, very mildly distended, no rebound, no guarding, incision with minimal erythema, no drainage, rashid in place, LLQ colostomy in place with stool in the ostomy bag - Rectal Exam Rectal Exam: Deferred - Extremities Exam Extremities Exam: Full ROM, Normal Inspection - Neurological Exam Neurological Exam: Alert, Awake, Oriented x3 - Psychiatric Exam Psychiatric exam: Normal Affect, Normal Mood - Skin Skin Exam: Dry, Intact, Normal Color, Warm Assessment and Plan - Assessment and Plan (Free Text) Assessment: 51 y.o. male s/p El's procedure Plan: - Continue low residue diet - Pain control - Continue antibiotics - Insentive spirometry - DVT ppx - Out of bed - Physical therapy - Repeat labs in am - Electrolyte replacements - Will follow
[2016-12-05] MEDS: Potassium CL 10mEq/100ml 100 ML IVPB SCH ×4 (12:08→15:22)
[2016-12-06] MEDS: metroNIDAZOLE 500mg/100ml NS 100 ML IVPB SCH ×2 (00:19→09:00)
[2016-12-06] MEDS: Piperacillin/Tazobact 3.375 GM in Sodium Chloride 0.9% 100 ML IVPB SCH ×2 (03:22→10:30)
[2016-12-06] MEDS: Oxycodone/Acetaminophen 5/325 mg Tab PO PRN (03:23)
[2016-12-06 07:13] LABS: HEMATOCRIT 36.6 % (35.0-51.0); MEAN CELL VOLUME 94.6 fl (80.0-94.0); MEAN CORPUSCULAR HEMOGLOBIN 31.6 pg (27.0-31.0); MEAN CORPUSCULAR HGB CONC 33.4 g/dL (33.0-37.0); RED CELL DISTRIBUTION WIDTH 13.4 % (11.5-14.5); WHITE BLOOD COUNT 10.1 K/uL (4.8-10.8)
--- NOTE | 2016-12-06 07:17 | CP.PCM.PN ---
Subjective - Date & Time of Evaluation Date of Evaluation: 12/06/16 Time of Evaluation: 07:16 - Subjective Subjective: doign well, no f/c, n/v/d. less pain. ostomy functioning well. bw ntoed. still w/ low K Objective - Vital Signs/Intake and Output Vital Signs (last 24 hours): Temp Pulse Resp BP Pulse Ox 98.4 F 66 19 164/89 H 95 12/06/16 00:09 12/06/16 00:09 12/06/16 00:09 12/06/16 00:09 12/06/16 00:09 - Medications Medications: Current Medications Acetaminophen (Tylenol 650 Mg Supp) 650 mg [place] Q6 PRN PRN Reason: Fever >100.4 F Enoxaparin Sodium (Lovenox) 40 mg SC DAILY [facility] PRN Reason: Protocol Last Admin: 12/05/16 09:03 Dose: 40 mg Metronidazole (Flagyl 500mg/100ml Ns) 100 mls @ 100 mls/hr IVPB Q8 [facility] Last Admin: 12/06/16 00:19 Dose: 100 mls/hr Piperacillin Sod/Tazobactam (Sod 3.375 gm/ Sodium Chloride) 100 mls @ 100 mls/ hr IVPB Q6 [facility] Last Admin: 12/06/16 03:22 Dose: 100 mls/hr Metoprolol Succinate (Toprol Xl) 25 mg PO DAILY [facility] Last Admin: 12/05/16 09:06 Dose: 25 mg Ondansetron HCl (Zofran Inj) 4 mg IVP Q6 PRN PRN Reason: Nausea/Vomiting Oxycodone/Acetaminophen (Percocet 5/325 Mg Tab) 2 tab PO Q6 PRN PRN Reason: Pain, severe (8-10) Stop: 12/07/16 07:40 Last Admin: 12/06/16 03:23 Dose: 2 tab Pantoprazole Sodium (Protonix Inj) 40 mg IVP DAILY [facility] Last Admin: 12/05/16 09:05 Dose: 40 mg Potassium Chloride (K-Dur 20 Meq Er Tab) 40 meq PO DAILY [facility] Last Admin: 12/05/16 09:07 Dose: 40 meq - Labs Labs: 12/05/16 06:55 12/05/16 06:55 PT 10.0 Seconds (9.8-13.1) 11/29/16 22:30 INR 0.9 (0.9-1.2) 11/29/16 22:30 APTT 27.1 Seconds (25.6-37.1) 11/29/16 22:30 - Constitutional Appears: Well, Non-toxic, No Acute Distress - Head Exam Head Exam: ATRAUMATIC, NORMAL INSPECTION, NORMOCEPHALIC - Eye Exam Eye Exam: EOMI, Normal appearance, PERRL Pupil Exam: NORMAL ACCOMODATION, PERRL - ENT Exam ENT Exam: Mucous Membranes Moist, Normal Exam - Neck Exam Neck Exam: Full ROM, Normal Inspection. absent: Lymphadenopathy - Respiratory Exam Respiratory Exam: Clear to Ausculation Bilateral, NORMAL BREATHING PATTERN - Cardiovascular Exam Cardiovascular Exam: REGULAR RHYTHM, +S1, +S2. absent: Murmur - GI/Abdominal Exam GI & Abdominal Exam: Soft, Normal Bowel Sounds. absent: Tenderness - Extremities Exam Extremities Exam: Full ROM, Normal Capillary Refill, Normal Inspection. absent : Joint Swelling, Pedal Edema - Back Exam Back Exam: NORMAL INSPECTION - Neurological Exam Neurological Exam: Alert, Awake, CN II-XII Intact, Normal Gait, Oriented x3 - Psychiatric Exam Psychiatric exam: Normal Affect, Normal Mood - Skin Skin Exam: Dry, Intact, Normal Color, Warm Assessment and Plan (1) Perforation of sigmoid colon due to diverticulitis Status: Acute (2) DVT prophylaxis Status: Acute (3) Hypokalemia Status: Acute - Assessment and Plan (Free Text) Assessment: (1) Perforation of sigmoid colon due to diverticulitis Assessment & Plan: cont to follow w/ surgery pain control anbx ouptt f/u is being arranged by SW/DAKOTA Status: Acute (2) DVT prophylaxis Assessment & Plan: scd and aheose lovenox ambulation Status: Acute (3) Hypokalemia Assessment & Plan: kdur daily, monitor k Status: Acute
[2016-12-06 07:22] LABS: BLOOD UREA NITROGEN 9 mg/dl (9-20); CALCIUM 8.1 mg/dL (8.4-10.2); CARBON DIOXIDE 24 mmol/L (22-30); CHLORIDE 108 mmol/L (98-107); GFR AFRICAN-AMERICAN > 60; GLUCOSE,RANDOM 87 mg/dL (75-110); POTASSIUM 3.2 MMOL/L (3.6-5.0); SODIUM 140 mmol/l (132-148)
--- NOTE | 2016-12-06 07:32 | CP.PCM.PN ---
<Shae Deras - Last Filed: 12/06/16 07:29> Subjective - Date & Time of Evaluation Date of Evaluation: 12/06/16 Time of Evaluation: 07:29 - Subjective Subjective: General Surgery - DR. Poole Pt S&E. BLAYNE. Pt states he tolerated more of his low residue diet yesterday. His pain has been well controlled. He has been OOB and ambulating with cane which he uses at home. No N/V, F/C, SOb/Cp. Colostomy functioning. Objective - Vital Signs/Intake and Output Vital Signs (last 24 hours): Temp Pulse Resp BP Pulse Ox 98.4 F 66 19 164/89 H 95 12/06/16 00:09 12/06/16 00:09 12/06/16 00:09 12/06/16 00:09 12/06/16 00:09 - Medications Medications: Current Medications Acetaminophen (Tylenol 650 Mg Supp) 650 mg [place] Q6 PRN PRN Reason: Fever >100.4 F Enoxaparin Sodium (Lovenox) 40 mg SC DAILY [facility] PRN Reason: Protocol Last Admin: 12/05/16 09:03 Dose: 40 mg Metronidazole (Flagyl 500mg/100ml Ns) 100 mls @ 100 mls/hr IVPB Q8 [facility] Last Admin: 12/06/16 00:19 Dose: 100 mls/hr Piperacillin Sod/Tazobactam (Sod 3.375 gm/ Sodium Chloride) 100 mls @ 100 mls/ hr IVPB Q6 [facility] Last Admin: 12/06/16 03:22 Dose: 100 mls/hr Metoprolol Succinate (Toprol Xl) 25 mg PO DAILY [facility] Last Admin: 12/05/16 09:06 Dose: 25 mg Ondansetron HCl (Zofran Inj) 4 mg IVP Q6 PRN PRN Reason: Nausea/Vomiting Oxycodone/Acetaminophen (Percocet 5/325 Mg Tab) 2 tab PO Q6 PRN PRN Reason: Pain, severe (8-10) Stop: 12/07/16 07:40 Last Admin: 12/06/16 03:23 Dose: 2 tab Pantoprazole Sodium (Protonix Inj) 40 mg IVP DAILY [facility] Last Admin: 12/05/16 09:05 Dose: 40 mg Potassium Chloride (K-Dur 20 Meq Er Tab) 40 meq PO DAILY [facility] Last Admin: 12/05/16 09:07 Dose: 40 meq - Labs Labs: 12/05/16 06:55 12/05/16 06:55 PT 10.0 Seconds (9.8-13.1) 11/29/16 22:30 INR 0.9 (0.9-1.2) 11/29/16 22:30 APTT 27.1 Seconds (25.6-37.1) 11/29/16 22:30 - Constitutional Appears: No Acute Distress - Head Exam Head Exam: ATRAUMATIC, NORMAL INSPECTION, NORMOCEPHALIC - Eye Exam Eye Exam: Normal appearance - ENT Exam ENT Exam: Mucous Membranes Moist - Respiratory Exam Respiratory Exam: NORMAL BREATHING PATTERN. absent: Respiratory Distress - Cardiovascular Exam Cardiovascular Exam: REGULAR RHYTHM - GI/Abdominal Exam GI & Abdominal Exam: Soft, Tenderness (mild ttp, appropriately ). absent: Distended, Firm, Guarding, Rebound Additional comments: colostomy w/ soft stool output, midline incison c/D/i with rashid, some erythema around incision but non tender - Neurological Exam Neurological Exam: Alert, Oriented x3 - Psychiatric Exam Psychiatric exam: Normal Affect, Normal Mood - Skin Skin Exam: Dry, Intact Assessment and Plan - Assessment and Plan (Free Text) Assessment: 51 y.o. male s/p El's procedure, POD #6 Plan: - Continue low residue diet - Pain control - IV Abx - Encourage OOB/Ambulation and Incentive Spirometer - DVT ppx - F/U Labs and replete as needed DW Dr. Virgilio Deras PGY2 <Edward Poole - Last Filed: 12/06/16 09:19> Subjective - Date & Time of Evaluation Time of Evaluation: 09:00 - Subjective Subjective: Patient was seen and examined at the bedside. Agree with resident's note above Objective - Vital Signs/Intake and Output Vital Signs (last 24 hours): Temp Pulse Resp BP Pulse Ox 98.1 F 70 20 163/88 H 94 L 12/06/16 07:43 12/06/16 08:55 12/06/16 07:43 12/06/16 08:55 12/06/16 07:43 - Medications Medications: Current Medications Acetaminophen (Tylenol 650 Mg Supp) 650 mg [place] Q6 PRN PRN Reason: Fever >100.4 F Enoxaparin Sodium (Lovenox) 40 mg SC DAILY [facility] PRN Reason: Protocol Last Admin: 12/06/16 08:53 Dose: 40 mg Metronidazole (Flagyl 500mg/100ml Ns) 100 mls @ 100 mls/hr IVPB Q8 [facility] Last Admin: 12/06/16 09:00 Dose: 100 mls/hr Piperacillin Sod/Tazobactam (Sod 3.375 gm/ Sodium Chloride) 100 mls @ 100 mls/ hr IVPB Q6 [facility] Last Admin: 12/06/16 03:22 Dose: 100 mls/hr Metoprolol Succinate (Toprol Xl) 25 mg PO DAILY [facility] Last Admin: 12/06/16 08:55 Dose: 25 mg Ondansetron HCl (Zofran Inj) 4 mg IVP Q6 PRN PRN Reason: Nausea/Vomiting Oxycodone/Acetaminophen (Percocet 5/325 Mg Tab) 2 tab PO Q6 PRN PRN Reason: Pain, severe (8-10) Stop: 12/07/16 07:40 Last Admin: 12/06/16 03:23 Dose: 2 tab Pantoprazole Sodium (Protonix Inj) 40 mg IVP DAILY [facility] Last Admin: 12/06/16 08:53 Dose: 40 mg Potassium Chloride (K-Dur 20 Meq Er Tab) 40 meq PO DAILY [facility] Last Admin: 12/06/16 08:55 Dose: 40 meq - Labs Labs: 12/06/16 06:25 12/06/16 06:25 PT 10.0 Seconds (9.8-13.1) 11/29/16 22:30 INR 0.9 (0.9-1.2) 11/29/16 22:30 APTT 27.1 Seconds (25.6-37.1) 11/29/16 22:30 Assessment and Plan - Assessment and Plan (Free Text) Plan: - Continue diet - Continue antibiotics - Patient is clear for discharge to subacute rehab from the surgical stand point
[2016-12-06 07:43] VITALS: BP 163/88; PULSE 70; RESP 20; TEMP 98.1; O2SAT 94
[2016-12-06] MEDS: Enoxaparin 40 mg Syringe SC SCH (08:53)
[2016-12-06] MEDS: Metoprolol Succinate 25 mg XL Tab PO SCH (08:55)
[2016-12-06] MEDS: Potassium Chloride 20 mEq ER Tab PO SCH (08:55)
--- NOTE | 2016-12-06 17:08 | OP ---
PROCEDURE DATE: 11/30/2016 OPERATION PERFORMED: Exploratory laparotomy, sigmoid resection, with end-colostomy. PREOPERATIVE DIAGNOSIS: Perforated sigmoid colon. POSTOPERATIVE DIAGNOSIS: Perforated sigmoid colon. ESTIMATED BLOOD LOSS: Was 100. OPERATIVE FINDINGS: Were perforated sigmoid colon with pus within the peritoneal cavity. SURGEON: Mic Beaulieu MD PHARMACY ANCILLARY: Shiva Walsh MD ANESTHESIA: General anesthesia. OPERATIVE PROCEDURE: The patient was taken to the operating room, placed supine on the operating tab le. After induction of anesthesia, the abdomen was prepped and draped in a standard surgical fashion . A lower midline incision was made using a #10 blade, carried down through the skin and subcutaneou s tissues. Fascia was then encountered. Fascia was grasped between clamps and pulled upwards. The fascia was then divided by using the electrocautery. Once the electrocautery was used patient had th e peritoneal cavity entered. A large amount of purulent fluid was found within the peritoneal cavity . At that point, the fascia was opened in its entirety and a self-retaining retractor was placed in the abdomen. The abdomen explored and the patient was found to have an inflamed segment of sigmoid c olon. The sigmoid colon was then pulled upwards. The proximal and distal aspect of the sigmoid colo n was identified. The patient was found to have a perforation within that area of sigmoid colon. A OLLIE stapler was then fired above and below the sigmoid perforation and, once that was done, the patie nt had the area inspected. There was no evidence of bleeding. The lateral aspect of the sigmoid col on was then brought upwards and a colostomy was then brought up through the abdominal wall. The colo stomy was secured using Boone clamps. Once that was done, the abdomen was copiously irrigated and the irrigant was removed. The fascia was then closed using running #1 PDS. The skin was closed usin g rashid. The ostomy was then matured using interrupted 3-0 Vicryl. A finger was inserted into the ostomy postop to ensure a patency of the ostomy. Once that was done, the patient was awakened from anesthesia, transported to recovery in satisfactory condition. Sponge, instrument, and needle counts were correct at the end of the case. Mic Beaulieu MD cc: 139 TT: 12/06/2016 17:07:36 dn
== END 2016-12-06 14:42 | DRG 330 ==
LOC: H.ER 21:23 → H.ERHOLD 11-30 02:33 → H.ICU/CCU 11-30 03:18 → H.MEDSURG1 12-03 10:53
PROVIDERS: ADMIT Family Medicine; ATTEND Family Medicine
PROC: 0DTN0ZZ Resection of Sigmoid Colon, Open Approach (ICD-10-PCS; principal; 2016-11-30 10:30)
PROC: 0D1N0Z4 Bypass Sigmoid Colon to Cutaneous, Open Approach (ICD-10-PCS; 2016-11-30 10:30)
PROC: 3E0234Z Introduction of Serum, Toxoid and Vaccine into Muscle, Percutaneous Approach (ICD-10-PCS; 2016-12-02)
DX: K57.20 Diverticulitis of large intestine with perforation and abscess without bleeding (principal); I10 Essential (primary) hypertension; E78.5 Hyperlipidemia, unspecified; E78.00 Pure hypercholesterolemia, unspecified; E87.6 Hypokalemia; K21.9 Gastro-esophageal reflux disease without esophagitis; M17.12 Unilateral primary osteoarthritis, left knee; Z23 Encounter for immunization; Z91.013 Allergy to seafood; Z91.018 Allergy to other foods; F17.210 Nicotine dependence, cigarettes, uncomplicated

== ENCOUNTER 2017-04-04 17:53 | Emergency (ER) | payer MEDICARE ==
[2017-04-04 18:13] VITALS: BP 165/95; PULSE 97; RESP 16; TEMP 98.5; O2SAT 99
[2017-04-04] MEDS ORDERED: Iohexol 240 (50 ml) PO ONE (18:44)
--- NOTE | 2017-04-04 19:22 | ED PDOC ---
HPI: Abdomen Time Seen by Provider: 04/04/17 18:16 Chief Complaint (Nursing): Abdominal Pain Chief Complaint (Provider): Abdominal Pain History Per: Patient History/Exam Limitations: no limitations Onset/Duration Of Symptoms: Days (x2) Current Symptoms Are (Timing): Still Present Additional Complaint(s): Yoel Stinson is a 51 year old male with previous surgical history of colostomy, who presents to the emergency department with a complaint of worsening lower suprapubic pain associated with swelling ongoing for 2 days. Denied loss of appetite, nausea, vomiting, dysuria, hematuria, fever or chills. Of note, patient also has history of perforated diverticulitis, found during colonoscopy in November 2016, performed by Dr. Beaulieu. PMD: Marco Antonio Rosas MD Past Medical History Reviewed: Historical Data, Nursing Documentation, Vital Signs Vital Signs: Last Vital Signs Temp 98.5 F 04/04/17 18:11 Pulse 97 H 04/04/17 18:11 Resp 16 04/04/17 18:11 BP 165/95 H 04/04/17 18:11 Pulse Ox 99 04/04/17 22:31 - Medical History PMH: Arthritis, Back Problems (herniated disk), HTN, Hypercholesterolemia, Hyperlipidemia Denies: Chronic Kidney Disease - Surgical History Surgical History: Denies: No Surg Hx Other surgeries: colostomy - Family History Family History: States: No Known Family Hx - Social History Current smoker - smoking cessation education provided: Yes Alcohol: Occasional Drugs: Denies - Home Medications Home Medications: Ambulatory Orders Medication Instructions Recorded traMADol [Ultram] 50 mg PO BID 12/11/14 Aspirin [Aspirin Chewable] 81 mg PO DAILY #0 ctb 08/25/15 Ranitidine HCl [Zantac] 150 mg PO DAILY 06/02/16 amLODIPine [Norvasc] 10 mg PO DAILY 11/30/16 Acetaminophen [Tylenol 650 mg Supp] 650 mg [place] Q6 PRN sup 12/06/16 Enoxaparin [Lovenox] 40 mg SC DAILY syr 12/06/16 Metoprolol Succinate [Toprol XL] 25 mg PO DAILY tab 12/06/16 Ondansetron [Zofran Inj] 4 mg IVP Q6 PRN vial 12/06/16 Pantoprazole [Protonix Inj] 40 mg IVP DAILY vial 12/06/16 Piperacill/Tazo 3.375gm in Dex 3.375 gm IVPB Q6 #28 bag 12/06/16 [Zosyn 3.375 Gm IV] Potassium Chloride [K-Dur 20 mEq 40 meq PO DAILY tab 12/06/16 ER Tab] metroNIDAZOLE 500mg/100ml NS 500 mg IVPB Q8 #21 bag 12/06/16 [Flagyl 500MG/100ML NS] oxyCODONE/Acetaminophen [Percocet 2 tab PO Q6 PRN #20 tab 12/06/16 5/325 mg Tab] Ciprofloxacin HCl [Cipro] 500 mg PO BID #20 tab 04/04/17 Ibuprofen [Motrin Tab] 600 mg PO Q8 PRN #60 tab 04/04/17 metroNIDAZOLE [Flagyl] 500 mg PO TID #30 tab 04/04/17 - Allergies Allergies/Adverse Reactions: Allergies Allergy/AdvReac Type Severity Reaction Status Date / Time shrimp Allergy SHORTNESS Verified 04/04/17 18:11 OF BREATH soy Allergy SHORTNESS Verified 04/04/17 18:11 OF BREATH Review of Systems ROS Statement: Except As Marked, All Systems Reviewed And Found Negative Constitutional: Negative for: Fever, Chills Gastrointestinal: Positive for: Abdominal Pain (lower suprapubic with swelling) . Negative for: Nausea, Vomiting, Other (loss of appetite) Genitourinary Male: Negative for: Dysuria, Hematuria Physical Exam - Reviewed Nursing Documentation Reviewed: Yes Vital Signs Reviewed: Yes - Physical Exam Appears: Positive for: Non-toxic, No Acute Distress Head Exam: Positive for: ATRAUMATIC, NORMOCEPHALIC Skin: Positive for: Warm, Dry ENT: Positive for: Other (dry muc membranes). Negative for: Pharyngeal Erythema , Tonsillar Exudate Neck: Positive for: Painless ROM, Supple Cardiovascular/Chest: Positive for: Regular Rate, Rhythm, Chest Non Tender. Negative for: Murmur Respiratory: Positive for: Normal Breath Sounds. Negative for: Wheezing Gastrointestinal/Abdominal: Positive for: Bowel Sounds, Soft, Tenderness ( suprapubic tenderness), Other (Colostomy bad in place LLQ with no surrounding erythema. Subtle erythema on abdominal skin near suprapubic area.). Negative for: Mass, Distended, Guarding, Rebound Back: Positive for: Normal Inspection. Negative for: Decreased ROM Extremity: Positive for: Normal ROM. Negative for: Deformity Lymphatic: Negative for: Adenopathy Neurologic/Psych: Positive for: Alert. Negative for: Motor/Sensory Deficits - Laboratory Results Result Diagrams: 04/04/17 19:45 04/04/17 19:45 Interpretation Of Abn Labs: No emergently significan lab abnormalities. - ECG O2 Sat by Pulse Oximetry: 99 (RA) Pulse Ox Interpretation: Normal Medical Decision Making Medical Decision Making: Initial Impression: Abdominal pain with history of colostomy Initial Plan: * CT ABD/pelvis with PO and IV contrast * CMP * Lipase * Urine dipstick * CBC * PTT * PT * Dextrose 500ml IV per 100mls/hr * Omnipaque 50ml PO * Blood culture Time: 2203 --CT ABD/pelvis FINDINGS: Lower thorax: The bilateral lung bases are clear. ABDOMEN: Liver: No acute findings. Gallbladder and bile ducts: The gallbladder is decompressed. No calcified stones. No significant intra- or extrahepatic biliary ductal dilation. Pancreas: Enhances homogeneously. No ductal dilation. No discrete mass. Spleen: No acute findings. Adrenals: No acute findings. Kidneys and ureters: No acute findings. No hydronephrosis or renal calculi. No discrete solid mass. PELVIS: Bladder: No acute findings. Reproductive: No acute findings. Appendix: The appendix is not definitively visualized, however no pericecal inflammatory change is identified to suggest the presence of acute appendicitis. ABDOMEN and PELVIS: Stomach and bowel: Nonobstructing bowel containing infraumbilical hernia. Colonic diverticulosis, without diverticulitis. Mural thickening within El's pouch. Stoma within the left lower quadrant. Peritoneum: No significant fluid collection. No free air. Lymph nodes: No pathologically enlarged lymph nodes. Vasculature: Calcified atherosclerotic disease. Bones: No acute fracture. IMPRESSION: Mural thickening within El's pouch, for which a colitis is suspected. Colonic diverticulosis, without inflammation. Nonobstructing, bowel containing infraumbilical hernia. Labs unremarkable. DW pt findings. Continues to have benign abdomen. Pt to follow up with [place] Scribe Attestation: Documented by Jayleen Natarajan, acting as a scribe for Elham Lawson MD. Provider Scribe Attestation: All medical record entries made by the Scribe were at my direction and personally dictated by me. I have reviewed the chart and agree that the record accurately reflects my personal performance of the history, physical exam, medical decision making, and the department course for this patient. I have also personally directed, reviewed, and agree with the discharge instructions and disposition. Disposition - Clinical Impression Clinical Impression: Colitis, Abdominal pain - Disposition Referrals: [facility] [Provider Group] - 04/05/17 (FOLLOW UP WITH YOUR DOCTOR IN 1-2 DAYS TO SEE HOW YOU ARE DOING) Disposition: Routine/Home Disposition Time: 22:00 Condition: STABLE Additional Instructions: BLAND DIET AND REST YOUR PRESCRIPTIONS WERE SENT TO [facility] AT [address] Prescriptions: Ciprofloxacin HCl [Cipro] 500 mg PO BID #20 tab Ibuprofen [Motrin Tab] 600 mg PO Q8 PRN #60 tab PRN Reason: Pain, Moderate (4-7) metroNIDAZOLE [Flagyl] 500 mg PO TID #30 tab Instructions: Colitis (ED) Forms: [employer] ([place])
[2017-04-04] MEDS ORDERED: Iohexol 240 (50 ml) ONE (19:25)
[2017-04-04 19:56] LABS: BASO # 0.1 K/uL (0.0-0.2); BASO % 0.9 % (0.0-2.0); EOS # 0.3 K/uL (0.0-0.7); EOS % 3.3 % (0.0-4.0); HEMATOCRIT 41.7 % (35.0-51.0); LYMPH # 3.2 K/uL (1.0-4.3); MEAN CELL VOLUME 93.6 fl (80.0-94.0); MEAN CORPUSCULAR HEMOGLOBIN 31.5 pg (27.0-31.0); MEAN CORPUSCULAR HGB CONC 33.6 g/dL (33.0-37.0); MEAN PLATELET VOLUME 7.3 fl (7.2-11.7); MONO # 0.6 K/uL (0.0-0.8); NEUT # 4.8 K/uL (1.8-7.0); NEUT % 52.8 % (50.0-75.0); RED CELL DISTRIBUTION WIDTH 13.1 % (11.5-14.5)
[2017-04-04 20:06] LABS: ALB/GLOB RATIO 1.4 (1.0-2.1); ALKALINE PHOSPHATASE 48 U/L (38-126); ALT/SGPT 25 U/L (21-72); AST/SGOT 20 U/L (17-59); BILIRUBIN,TOTAL < 0.1 mg/dl (0.2-1.3); BLOOD UREA NITROGEN 12 mg/dl (9-20); CALCIUM 9.4 mg/dL (8.4-10.2); CARBON DIOXIDE 26 mmol/L (22-30); CHLORIDE 109 mmol/L (98-107); GFR AFRICAN-AMERICAN > 60; GLUCOSE,RANDOM 99 mg/dL (75-110); LIPASE 95 U/L (23-300); POTASSIUM 3.4 MMOL/L (3.6-5.0); SODIUM 144 mmol/l (132-148); TOTAL PROTEIN 6.6 G/DL (6.3-8.2)
[2017-04-04 20:20] LABS: PARTIAL THROMBOPLASTIN TIME 32.3 Seconds (25.6-37.1)
[2017-04-04] MEDS ORDERED: Iohexol 300 100 ML IJ ONE (20:48)
[2017-04-04] MEDS ORDERED: Sodium Chloride 0.9% 50 ML IV ONE (20:48)
--- NOTE | 2017-04-04 22:03 | CT ---
EXAM: CT Abdomen and Pelvis With Intravenous Contrast CLINICAL HISTORY: 51 years old, male; Pain; Abdominal pain; Localized; Lower; Prior surgery; Surgery date: 1-6 months; Surgery type: Colostomy; Patient HX: Divertic. ; Additional info: Lower abdominal pain and distension h/o colostomy. Sent phy. Doc. TECHNIQUE: Axial computed tomography images of the abdomen and pelvis with intravenous contrast. All CT scans at this facility use one or more dose reduction techniques, viz.: automated exposure control; ma/kV adjustment per patient size (including targeted exams where dose is matched to indication; i.e. head); or iterative reconstruction technique. Coronal and sagittal reformatted images were created and reviewed. CONTRAST: 100 mL of [id number] administered intravenously. COMPARISON: CT - ABD PELVIS PO IV CONTRAST 2016-11-30 01:33 FINDINGS: Lower thorax: The bilateral lung bases are clear. ABDOMEN: Liver: No acute findings. Gallbladder and bile ducts: The gallbladder is decompressed. No calcified stones. No significant intra- or extrahepatic biliary ductal dilation. Pancreas: Enhances homogeneously. No ductal dilation. No discrete mass. Spleen: No acute findings. Adrenals: No acute findings. Kidneys and ureters: No acute findings. No hydronephrosis or renal calculi. No discrete solid mass. PELVIS: Bladder: No acute findings. Reproductive: No acute findings. Appendix: The appendix is not definitively visualized, however no pericecal inflammatory change is identified to suggest the presence of acute appendicitis. ABDOMEN and PELVIS: Stomach and bowel: Nonobstructing bowel containing infraumbilical hernia. Colonic diverticulosis, without diverticulitis. Mural thickening within El's pouch. Stoma within the left lower quadrant. Peritoneum: No significant fluid collection. No free air. Lymph nodes: No pathologically enlarged lymph nodes. Vasculature: Calcified atherosclerotic disease. Bones: No acute fracture. IMPRESSION: Mural thickening within El's pouch, for which a colitis is suspected. Colonic diverticulosis, without inflammation. Nonobstructing, bowel containing infraumbilical hernia.
== END 2017-04-04 22:58 | disposition home or self-care (01) ==
LOC: H.ER 17:53
DX: K52.9 Noninfective gastroenteritis and colitis, unspecified (principal); E78.00 Pure hypercholesterolemia, unspecified; F17.200 Nicotine dependence, unspecified, uncomplicated; I10 Essential (primary) hypertension; Z79.82 Long term (current) use of aspirin; Z93.3 Colostomy status; K57.30 Diverticulosis of large intestine without perforation or abscess without bleeding
CPT/HCPCS: 74177; 80053; 83690; 85025; 85610; 85730; 87040; 99283; J7042; Q9966; Q9967

== ENCOUNTER 2017-05-31 10:46 | Emergency (ER) | payer MEDICARE ==
[2017-05-31 10:58] VITALS: BMI 29.7
[2017-05-31 10:59] VITALS: TEMP 97.7
[2017-05-31 13:33] LABS: BASO # 0.1 K/uL (0.0-0.2); BASO % 0.8 % (0.0-2.0); EOS # 0.2 K/uL (0.0-0.7); EOS % 2.1 % (0.0-4.0); HEMATOCRIT 44.4 % (35.0-51.0); LYMPH # 2.9 K/uL (1.0-4.3); LYMPH % 31.3 % (20.0-40.0); MEAN CELL VOLUME 93.3 fl (80.0-94.0); MEAN CORPUSCULAR HEMOGLOBIN 32.1 pg (27.0-31.0); MEAN CORPUSCULAR HGB CONC 34.4 g/dL (33.0-37.0); MEAN PLATELET VOLUME 7.9 fl (7.2-11.7); MONO # 0.6 K/uL (0.0-0.8); MONO % 6.8 % (0.0-10.0); NEUT # 5.6 K/uL (1.8-7.0); NRBC % 0.1 % (0.0-0.0); RED CELL DISTRIBUTION WIDTH 13.4 % (11.5-14.5); WHITE BLOOD COUNT 9.4 K/uL (4.8-10.8)
[2017-05-31 13:41] LABS: ALB/GLOB RATIO 1.3 (1.0-2.1); ALKALINE PHOSPHATASE 54 U/L (38-126); ALT/SGPT 32 U/L (21-72); AST/SGOT 18 U/L (17-59); BILIRUBIN,TOTAL 0.3 mg/dl (0.2-1.3); BLOOD UREA NITROGEN 9 mg/dl (9-20); CALCIUM 9.1 mg/dL (8.4-10.2); CARBON DIOXIDE 27 mmol/L (22-30); CHLORIDE 108 mmol/L (98-107); GFR AFRICAN-AMERICAN > 60; GLUCOSE,RANDOM 83 mg/dL (75-110); POTASSIUM 3.7 MMOL/L (3.6-5.0); SODIUM 143 mmol/l (132-148); TOTAL PROTEIN 7.1 G/DL (6.3-8.2)
[2017-05-31 13:55] LABS: RBC URINE < 1 /hpf (0-3); URINE BILIRUBIN NEGATIVE (NEGATIVE); URINE BLOOD NEGATIVE (NEGATIVE); URINE COLOR STRAW (YELLOW); URINE GLUCOSE (UA) NEG (Normal); URINE KETONE NEGATIVE (NEGATIVE); URINE LEUKOCYTE ESTERASE NEG Leu/uL (Negative); URINE PROTEIN NEGATIVE (NEGATIVE); URINE UROBILINOGEN 0.2-1.0 mg/dL (0.2-1.0)
[2017-05-31] MEDS ORDERED: Sodium Chloride 0.9% 1,000 ML IV STA (16:18)
--- NOTE | 2017-05-31 17:46 | ED PDOC ---
HPI: General Adult Time Seen by Provider: 05/31/17 11:16 Chief Complaint (Nursing): Abdominal Pain Chief Complaint (Provider): stoma problem History Per: Patient History/Exam Limitations: no limitations Current Symptoms Are (Timing): Still Present Recently: Treated By A Physician Additional Complaint(s): 51yo male had colostomy early summer 2016 presents today c/o protrusion of stoma and tingling to area. Denies pain, fever, vomiting, diarrhea. States colostomy bag and stool has been normal- no blood. Is due for reversal of colostomy but not yet scheduled. Past Medical History Reviewed: Historical Data, Nursing Documentation, Vital Signs Vital Signs: Last Vital Signs Temp 97.7 F 05/31/17 10:59 Pulse 90 05/31/17 10:59 Resp 20 05/31/17 10:59 BP 134/82 05/31/17 10:59 Pulse Ox 94 L 05/31/17 10:59 - Medical History PMH: Arthritis, Back Problems (herniated disk), HTN, Hypercholesterolemia, Hyperlipidemia Denies: Chronic Kidney Disease - Surgical History Other surgeries: colostomy/laparotomy - Family History Family History: States: Unknown Family Hx - Living Arrangements Living Arrangements: With Friends/Others - Home Medications Home Medications: Ambulatory Orders Medication Instructions Recorded traMADol [Ultram] 50 mg PO BID 12/11/14 Aspirin [Aspirin Chewable] 81 mg PO DAILY #0 ctb 08/25/15 Ranitidine HCl [Zantac] 150 mg PO DAILY 06/02/16 amLODIPine [Norvasc] 10 mg PO DAILY 11/30/16 Metoprolol Succinate [Toprol XL] 25 mg PO DAILY tab 12/06/16 Ondansetron [Zofran Inj] 4 mg IVP Q6 PRN vial 12/06/16 Pantoprazole [Protonix Inj] 40 mg IVP DAILY vial 12/06/16 Potassium Chloride [K-Dur 20 mEq 40 meq PO DAILY tab 12/06/16 ER Tab] oxyCODONE/Acetaminophen [Percocet 2 tab PO Q6 PRN #20 tab 12/06/16 5/325 mg Tab] Ibuprofen [Motrin Tab] 600 mg PO Q8 PRN #60 tab 04/04/17 Ibuprofen [Motrin Tab] 600 mg PO Q6 PRN #15 tab 05/31/17 - Allergies Allergies/Adverse Reactions: Allergies Allergy/AdvReac Type Severity Reaction Status Date / Time shrimp Allergy SHORTNESS Verified 04/04/17 18:11 OF BREATH soy Allergy SHORTNESS Verified 04/04/17 18:11 OF BREATH Review of Systems ROS Statement: Except As Marked, All Systems Reviewed And Found Negative Constitutional: Negative for: Fever, Chills Cardiovascular: Negative for: Chest Pain, Palpitations Respiratory: Negative for: Cough, Shortness of Breath Gastrointestinal: Negative for: Nausea, Vomiting, Abdominal Pain, Diarrhea, Constipation, Melena, Hematochezia, Hematemesis Genitourinary Male: Negative for: Dysuria, Frequency Musculoskeletal: Negative for: Neck Pain Skin: Negative for: Rash, Lesions, Jaundice Neurological: Negative for: Weakness, Numbness Physical Exam - Reviewed Nursing Documentation Reviewed: Yes Vital Signs Reviewed: Yes - Physical Exam Appears: Positive for: Well, Non-toxic, No Acute Distress Head Exam: Positive for: ATRAUMATIC, NORMAL INSPECTION, NORMOCEPHALIC Skin: Positive for: Normal Color, Warm, DRY Eye Exam: Positive for: EOMI, Normal appearance, PERRL ENT: Positive for: Normal ENT Inspection Neck: Positive for: Normal, Painless ROM Cardiovascular/Chest: Positive for: Regular Rate, Rhythm Respiratory: Positive for: CNT, Normal Breath Sounds Gastrointestinal/Abdominal: Positive for: Bowel Sounds, Soft, Other (L colostomy pink, mild prolapse <3cm, scant stool, nontender, abdomen lower midline scar intact). Negative for: Tenderness, Guarding Back: Positive for: Normal Inspection Extremity: Positive for: Normal ROM Neurologic/Psych: Positive for: Alert, Oriented - Laboratory Results Result Diagrams: 05/31/17 13:20 05/31/17 13:20 - ECG O2 Sat by Pulse Oximetry: 94 Disposition - Clinical Impression Clinical Impression: Gastrointestinal stoma prolapse - Disposition Referrals: Mic Beaulieu MD [Staff Provider] - Additional Instructions: See surgeon for evaluation of colostomy stoma and eligibility for reversal of colostomy. Prescriptions: Ibuprofen [Motrin Tab] 600 mg PO Q6 PRN #15 tab PRN Reason: Pain, Moderate (4-7) Instructions: Colostomy Care (ED) Forms: [employer] (Spanish)
[2017-05-31 17:58] VITALS: BP 145/85; PULSE 70; RESP 18; O2SAT 99
--- NOTE | 2017-06-01 00:32 | CARD ---
APPROVED REPORT EKG Measurement Heart [id number] <Conclusion> Normal sinus rhythm Left anterior fascicular block Abnormal ECG
== END 2017-05-31 17:58 | disposition home or self-care (01) ==
LOC: H.ER 10:46
DX: K94.09 Other complications of colostomy (principal); E78.00 Pure hypercholesterolemia, unspecified; I10 Essential (primary) hypertension; Z79.82 Long term (current) use of aspirin
CPT/HCPCS: 80053; 81003; 85025; 96360; 99282; J7040

== ENCOUNTER 2017-07-04 05:48 | Inpatient (IN) | payer MEDICARE ==
[2017-06-27 10:50] VITALS: BMI 29.0
[2017-07-04] MEDS ORDERED: Lactated Ringer's 1,000 ML IV ONE ×2 (08:00→11:06)
[2017-07-04] MEDS ORDERED: Glucagon Recombinant 1 mg Inj ONE (09:00)
[2017-07-04] MEDS ORDERED: metroNIDAZOLE 500mg/100ml NS 100 ML IVPB ONE (09:24)
[2017-07-04] MEDS ORDERED: Midazolam 2 MG/2 ML VIAL ONE (09:39)
[2017-07-04] MEDS ORDERED: Propofol 10 mg/ml Inj (20 ML) ONE (09:39)
[2017-07-04] MEDS ORDERED: Rocuronium 10 mg/ml (5 ml) ONE (09:39)
[2017-07-04] MEDS ORDERED: metroNIDAZOLE 500mg/100ml NS IVPB ONE (10:00)
[2017-07-04] MEDS ORDERED: Lidocaine 2% MPF (5 ml) Inj ONE (10:28)
[2017-07-04] MEDS ORDERED: Atropine 0.4 mg/ml Inj (1 mL) ONE (11:00)
[2017-07-04] MEDS ORDERED: HYDROmorphone 0.5 mg/0.5 ml ISec ONE (12:09)
[2017-07-04] MEDS: HYDROmorphone 0.5 mg/0.5 ml ISec IVP PRN ×5 (12:10→13:29)
[2017-07-04] MEDS ORDERED: Lactated Ringer's 1,000 ML IV SCH (12:30)
--- NOTE | 2017-07-04 12:34 | PCM.SURG1 ---
Surgeon's Initial Post Op Note - Surgeon's Notes Surgeon: Dr Beaulieu Certified Hearing Instrument Dispenser: Dr Sylvie Huitron PGY3 Type of Anesthesia: General Endo Anesthesia Administered By: Dr Hollins Pre-Operative Diagnosis: right colon mass Operative Findings: right colon mass w/ tattoo (tubulovillous adenoma) Post-Operative Diagnosis: as above Operation Performed: right hemicolectomy w/ primary anastamosis. reversal of Hartmanns. flores insertion Specimen/Specimens Removed: right colon. colostomy site Estimated Blood Loss: EBL {In ML}: 50 Blood Products Given: N/A Drains Used: No Drains Post-Op Condition: Good Date of Surgery/Procedure: 07/04/17 Time of Surgery/Procedure: 12:34
[2017-07-04] MEDS: Sodium Chloride 0.9% 1,000 ML IV SCH ×2 (19:05→23:00)
[2017-07-04] MEDS: ceFAZolin IV 2 gm in Dextrose 2 GM/50 ML BAG IVPB SCH (21:10)
[2017-07-05] MEDS: Sodium Chloride 0.9% 1,000 ML IV SCH (05:55)
[2017-07-05 07:11] LABS: BASO % 0.2 % (0.0-2.0); HEMOGLOBIN 15.6 g/dL (12.0-18.0); LYMPH # 1.6 K/uL (1.0-4.3); LYMPH % 9.1 % (20.0-40.0); MEAN CELL VOLUME 94.2 fl (80.0-94.0); MEAN CORPUSCULAR HEMOGLOBIN 31.6 pg (27.0-31.0); MEAN CORPUSCULAR HGB CONC 33.5 g/dL (33.0-37.0); MEAN PLATELET VOLUME 7.7 fl (7.2-11.7); MONO # 1.4 K/uL (0.0-0.8); MONO % 7.8 % (0.0-10.0); NEUT # 14.8 K/uL (1.8-7.0); NEUT % 82.9 % (50.0-75.0); NRBC % 0.1 % (0.0-0.0); PLATELET COUNT 203 K/uL (130-400); RBC 4.94 Mil/uL (4.40-5.90); RED CELL DISTRIBUTION WIDTH 13.4 % (11.5-14.5); WHITE BLOOD COUNT 17.9 K/uL (4.8-10.8)
--- NOTE | 2017-07-05 07:33 | CP.PCM.PN ---
<SylvieHarshil norman Calos - Last Filed: 07/05/17 07:55> Subjective - Date & Time of Evaluation Date of Evaluation: 07/05/17 Time of Evaluation: 07:33 - Subjective Subjective: General Surgery: Dr Beaulieu Pt S&E on telemetry floor. POD#1 s/p right hemicolectomy w/ reversal of El's. Pt is doing well, states pain is well controlled. Using incentive spirometer. Making adequate urine. Denies complaints at this time. Denies N/V , F/C. Not yet passing flatus. Objective - Vital Signs/Intake and Output Vital Signs (last 24 hours): Temp Pulse Resp BP Pulse Ox 98.8 F 109 H 18 142/94 H 95 07/05/17 05:11 07/05/17 05:11 07/05/17 05:11 07/05/17 05:11 07/05/17 05:11 Intake and Output: 07/05/17 07/05/17 06:59 18:59 Intake Total 1250 Output Total 650 Balance 600 - Medications Medications: Current Medications Aspirin (Aspirin Chewable) 81 mg PO DAILY [facility] Hydromorphone HCl (Dilaudid 0.2 Mg/Ml Body Rolling Machine Tender) 6 mg IV CONT PRN; Protocol PRN Reason: Pain, moderate (4-7) Last Admin: 07/04/17 14:20 Dose: 6 mg Sodium Chloride (Sodium Chloride 0.9%) 1,000 mls @ 100 mls/hr IV .Q10H [facility] Last Admin: 07/05/17 05:55 Dose: 100 mls/hr Cefazolin Sodium/Dextrose (Ancef Iv 2 Gm Duplex) 2 gm in 50 mls @ 50 mls/hr IVPB Q12 [facility] PRN Reason: Protocol Last Admin: 07/04/17 21:10 Dose: 50 mls/hr Influenza Virus Vaccine (Afluria (Pf)(18yr & Older)) 0.5 ml IM .ONCE ONE Stop: 07/05/17 09:01 Metoprolol Succinate (Toprol Xl) 25 mg PO DAILY [facility] Ondansetron HCl (Zofran Inj) 4 mg IVP Q6 PRN PRN Reason: Nausea/Vomiting - Labs Labs: 07/05/17 06:55 - Constitutional Appears: Non-toxic, No Acute Distress - Eye Exam Eye Exam: Normal appearance - ENT Exam ENT Exam: Normal Exam - Respiratory Exam Respiratory Exam: absent: Accessory Muscle Use, Respiratory Distress - Cardiovascular Exam Cardiovascular Exam: Tachycardia, REGULAR RHYTHM. absent: Irregular Rhythm - GI/Abdominal Exam GI & Abdominal Exam: Soft, Tenderness (post-op and appropriate). absent: Distended, Firm Additional comments: dressing c/d/i, minimal streak through - Neurological Exam Neurological Exam: Alert, Awake - Psychiatric Exam Psychiatric exam: Normal Affect, Normal Mood Assessment and Plan - Assessment and Plan (Free Text) Assessment: 51M POD#1 s/p right hemicolectomy and colostomy reversal Plan: maintain NPO - ok for ice chips maintain flores continue incentive spirometer OOB and ambulate d/w Dr Christofer Mercer, PGY3 <Edward Poole - Last Filed: 07/05/17 14:02> Subjective - Date & Time of Evaluation Time of Evaluation: 13:30 - Subjective Subjective: Patient was seen and examined at the bedside. Agree with resident's note above. Objective - Vital Signs/Intake and Output Vital Signs (last 24 hours): Temp Pulse Resp BP Pulse Ox 97.2 F L 117 H 18 138/91 H 94 L 07/05/17 12:00 07/05/17 12:00 07/05/17 12:00 07/05/17 12:00 07/05/17 12:00 Intake and Output: 07/05/17 07/05/17 06:59 18:59 Intake Total 1250 Output Total 650 Balance 600 - Medications Medications: Current Medications Aspirin (Aspirin Chewable) 81 mg PO DAILY [facility] Last Admin: 07/05/17 10:24 Dose: 81 mg Potassium Chloride 20 meq/ (Sodium Chloride) 1,010 mls @ 100 mls/hr IV .Q10H6M [facility] Stop: 07/06/17 08:40 Potassium Chloride 10 meq/ (Sodium Chloride) 105 mls @ 105 mls/hr IV Q1 [facility] Stop: 07/05/17 15:59 Metoprolol Succinate (Toprol Xl) 25 mg PO DAILY [facility] Last Admin: 07/05/17 10:24 Dose: 25 mg Ondansetron HCl (Zofran Inj) 4 mg IVP Q6 PRN PRN Reason: Nausea/Vomiting Last Admin: 07/05/17 10:26 Dose: 4 mg - Labs Labs: 07/05/17 06:55 07/05/17 06:55 Assessment and Plan - Assessment and Plan (Free Text) Plan: - Pain control - IV fluids - DVT ppx - Repeat labs in am - Out of bed
[2017-07-05 07:38] LABS: ALB/GLOB RATIO 1.2 (1.0-2.1); ALBUMIN 3.7 g/dL (3.5-5.0); ALT/SGPT 29 U/L (21-72); AST/SGOT 20 U/L (17-59); BLOOD UREA NITROGEN 15 mg/dl (9-20); CALCIUM 8.7 mg/dL (8.4-10.2); GFR AFRICAN-AMERICAN > 60; GFR NON-AFRICAN AMERICAN > 60
--- NOTE | 2017-07-05 07:57 | CP.PCM.HP ---
History of Present Illness - History of Present Illness History of Present Illness: pt admitted for s/p reversal of colostomy. pain controlled w/ electrolytic de scaler. bw noted. pt is tachycardia. pt had david episode in or. no f/c, n/v/d. Present on Admission - Present on Admission Any Indicators Present on Admission: No Review of Systems - Cardiovascular Cardiovascular: As Per HPI, Rapid Heart Rate - Gastrointestinal Gastrointestinal: As Per HPI, Abdominal Pain Past Patient History - Infectious Disease Hx of Infectious Diseases: None - Past Medical History & Family History Past Medical History?: Yes - Past Social History Smoking Status: Former Smoker - CARDIAC Hx Cardiac Disorders: Yes Hx Hypertension: Yes - PULMONARY Hx Respiratory Disorders: No - NEUROLOGICAL Hx Neurological Disorder: No - HEENT Hx HEENT Problems: No - RENAL Hx Chronic Kidney Disease: No - ENDOCRINE/METABOLIC Hx Endocrine Disorders: No - HEMATOLOGICAL/ONCOLOGICAL Hx Blood Disorders: No - INTEGUMENTARY Hx Dermatological Problems: No - MUSCULOSKELETAL/RHEUMATOLOGICAL Hx Musculoskeletal Disorders: Yes - GASTROINTESTINAL Hx Gastrointestinal Disorders: No Hx Colostomy: Yes (november-2016) - GENITOURINARY/GYNECOLOGICAL Hx Genitourinary Disorders: No - PSYCHIATRIC Hx Psychophysiologic Disorder: No - SURGICAL HISTORY Hx Surgeries: No - ANESTHESIA Hx Anesthesia: No Meds Allergies/Adverse Reactions: Allergies Allergy/AdvReac Type Severity Reaction Status Date / Time shrimp Allergy SHORTNESS Verified 04/04/17 18:11 OF BREATH soy Allergy SHORTNESS Verified 04/04/17 18:11 OF BREATH Physical Exam - Constitutional Appears: Well, Non-toxic, No Acute Distress - Head Exam Head Exam: ATRAUMATIC, NORMAL INSPECTION, NORMOCEPHALIC - Eye Exam Eye Exam: EOMI, Normal appearance, PERRL Pupil Exam: NORMAL ACCOMODATION, PERRL - ENT Exam ENT Exam: Mucous Membranes Moist, Normal Exam - Neck Exam Neck exam: Positive for: Normal Inspection - Respiratory Exam Respiratory Exam: Clear to Auscultation Bilateral, NORMAL BREATHING PATTERN - Cardiovascular Exam Cardiovascular Exam: Tachycardia, REGULAR RHYTHM, RRR, +S1, +S2 - GI/Abdominal Exam GI & Abdominal Exam: Hypoactive Bowel Sounds, Soft. absent: Tenderness - Extremities Exam Extremities exam: Positive for: full ROM, normal capillary refill, normal inspection, pedal pulses present - Back Exam Back exam: FULL ROM, NORMAL INSPECTION - Neurological Exam Neurological exam: Alert, CN II-XII Intact, Normal Gait, Oriented x3, Reflexes Normal - Psychiatric Exam Psychiatric exam: Normal Affect, Normal Mood - Skin Skin Exam: Dry, Intact, Normal Color, Warm Results - Vital Signs Recent Vital Signs: Last Vital Signs Temp 97.6 F 07/05/17 07:32 Pulse 109 H 07/05/17 07:32 Resp 18 07/05/17 07:32 BP 148/92 H 07/05/17 07:32 Pulse Ox 96 07/05/17 07:32 - Labs Result Diagrams: 07/05/17 06:55 07/05/17 06:55 Labs: Laboratory Results - last 24 hr 07/05/17 07/05/17 06:55 06:55 WBC 17.9 H D RBC 4.94 Hgb 15.6 Hct 46.6 MCV 94.2 H MCH 31.6 H MCHC 33.5 RDW 13.4 Plt Count 203 MPV 7.7 Neut % (Auto) 82.9 H Lymph % (Auto) 9.1 L [place] % (Auto) 7.8 Eos % (Auto) 0.0 Baso % (Auto) 0.2 Neut # 14.8 H Lymph # 1.6 [place] # 1.4 H Eos # 0.0 Baso # 0.0 Sodium 142 Potassium 3.4 L Chloride 108 H Carbon Dioxide 25 Anion Gap 12 BUN 15 Creatinine 0.8 Est GFR ( Amer) > 60 Est GFR (Non-Af Amer) > 60 Random Glucose 134 H Calcium 8.7 Total Bilirubin 1.2 AST 20 ALT 29 Alkaline Phosphatase 49 Total Protein 7.0 Albumin 3.7 Globulin 3.2 Albumin/Globulin Ratio 1.2 Assessment & Plan (1) DVT prophylaxis Assessment and Plan: scd and ae hose lovneox when cleared by surgery Status: Acute (2) Hypokalemia Assessment and Plan: kcl x 2 monitor Status: Acute (3) Perforation of sigmoid colon due to diverticulitis Assessment and Plan: reverse of colostmy, surgery pain control Status: Acute (4) Tachycardia Assessment and Plan: unkn etiology-?? blood loss vs pain vs unkn ivf cardio ekg tele monitoring Status: Acute Decision To Admit - Pt Status Changed To: Hospital Disposition Of: Inpatient - Admit Certification Admit to Inpatient:: After my assessment, the patient will require hospitalization for at least two midnights. This is because of the severity of symptoms shown, intensity of services needed, and/or the medical risk in this patient being treated as an outpatient. - . Bed Request Type: Telemetry Admitting Physician: Jonnathan Snow
[2017-07-05] MEDS ORDERED: Influenza Vaccine 18yr & older 0.5 ML/45 MCG SYR IM ONE (09:00)
[2017-07-05] MEDS: ceFAZolin IV 2 gm in Dextrose 2 GM/50 ML BAG IVPB SCH (10:23)
[2017-07-05] MEDS: Metoprolol Succinate 25 mg XL Tab PO SCH (10:24)
[2017-07-05 12:01] LABS: BANDS 1 % (0-2); LYMPHOCYTE 4 % (20-50); MONOCYTE 5 % (0-10); NEUTROPHIL 90 % (42-75); TOTAL CELLS COUNTED 100
[2017-07-05 12:02] LABS: PLATELET ESTIMATE NORMAL (NORMAL)
--- NOTE | 2017-07-05 12:48 | CP.PCM.CON ---
History of Present Illness - History of Present Illness History of Present Illness: I was asked to see patient by Dr Rosas and Gwendolyn. Patient is a 51 year old male with PMH HTN who is s/p hemicloecltomy and reversal of El's pouch. The patient developed tachycardia today. He appears comfortable, and has post op pain. Review of Systems - Constitutional Constitutional: absent: As Per HPI, Anorexia, Chills, Daytime Sleepiness, Excessive Sweating, Fatigue, Fever, Frequent Falls, Headache, Increased Appetite , Lethargy, Malaise, Night Sweats, Snoring, Sleep Apnea, Weight Gain, Weight Loss, Weakness, Other - EENT Eyes: absent: As Per HPI, Blind Spots, Blurred Vision, Change in Vision, Decreased Night Vision, Diplopia, Discharge, Dry Eye, Exophthalmos, Floaters, Irritation, Itchy Eyes, Loss of Peripheral Vision, Pain, Photophobia, Requires Corrective Lenses, Sees Flashes, Spots in Vision, Tunnel Vision, Other Visual Disturbances, Loss of Vision, Other Ears: absent: As Per HPI, Decreased Hearing, Ear Discharge, Ear Pain, Tinnitus, Abnormal Hearing, Disequilibrium, Dizziness, Other Nose/Mouth/Throat: absent: As Per HPI, Epistaxis, Nasal Congestion, Nasal Discharge, Nasal Obstruction, Nasal Trauma, Nose Pain, Post Nasal Drip, Sinus Pain, Sinus Pressure, Bleeding Gums, Change in Voice, Dental Pain, Dry Mouth, Dysphagia, Halitosis, Hoarsness, Lip Swelling, Mouth Lesions, Mouth Pain, Odynophagia, Sore Throat, Throat Swelling, Tongue Swelling, Facial Pain, Neck Pain, Neck Mass, Other - Cardiovascular Cardiovascular: absent: As Per HPI, Acrocyanosis, Chest Pain, Chest Pain at Rest , Chest Pain with Activity, Claudication, Diaphoresis, Dyspnea, Dyspnea on Exertion, Edema, Irregular Heart Rhythm, Pain Radiating to Arm/Neck/Jaw, Leg Edema, Leg Ulcers, Lightheadedness, Orthopnea, Palpitations, Paroxysmal Nocturnal Dyspnea, Pedal Edema, Radiating Pain, Rapid Heart Rate, Slow Heart Rate, Syncope, Other - Respiratory Respiratory: absent: As Per HPI, Cough, Dyspnea, Hemoptysis, Dyspnea on Exertion , Wheezing, Snoring, Stridor, Pain on Inspiration, Chest Congestion, Excessive Mucous Production, Change in Mucous Color, Pain with Coughing, Other - Gastrointestinal Gastrointestinal: Abdominal Pain - Genitourinary Genitourinary: absent: As Per HPI, Change in Urinary Stream, Difficulty Urinating, Dysuria, Flank Pain, Hematuria, Pyuria, Nocturia, Urinary Incontinence, Urinary Frequency, Urinary Hesitance, Urinary Urgency, Voiding Freq/Small Amts, Freq UTI, Hx Renal/Bladder Calculi, Hx /Renal Surgery, Bladder Distension, Other - Musculoskeletal Musculoskeletal: absent: As Per HPI, Abnormal Gait, Arthralgias, Atrophy, Back Pain, Deformity, Joint Swelling, Limited Range of Motion, Loss of Height, Muscle Cramps, Muscle Weakness, Myalgias, Neck Pain, Numbness, Radiating Pain into Limb, Stiffness, Tingling, Other - Integumentary Integumentary: absent: As Per HPI, Acne, Alopecia, Bleeding Lesions, Change in Hair, Change in Nails, Change in Pigmentation, Changing Lesions, Dry Skin, Erythema, Furuncle, Hirsutism, Lesions, New Lesions, Non-Healing Lesions, Photosensitivity, Pruritus, Rash, Skin Pain, Skin Ulcer, Sores, Striae, Swelling , Unusual Bruising, Wounds, Jaundice, Other - Neurological Neurological: absent: As Per HPI, Abnormal Gait, Abnormal Hearing, Abnormal Movements, Abnormal Speech, Behavioral Changes, Burning Sensations, Confusion, Convulsions, Disequilibrium, Dizziness, Numbness, Focal Weakness, Frequent Falls , Headaches, Lack of Coordination, Loss of Vision, Memory Loss, Paresthesias, Radicular Pain, Restless Legs, Sensory Deficit, Syncope, Tingling, Tremor, Vertigo, Weakness, Other Visual Disturbances, Other - Psychiatric Psychiatric: absent: As Per HPI, Abnormal Sleep Pattern, Anhedonia, Anxiety, Auditory Hallucinations, Behavioral Changes, Change in Appetite, Change in Libido, Confusion, Depression, Difficulty Concentrating, Hallucinations, Homicidal Ideation, Hopelessness, Irritability, Memory Loss, Mood Swings, Panic Attacks, Paranoia, Suicidal Ideation, Visual Hallucinations, Tactile Hallucinations, Other - Endocrine Endocrine: absent: As Per HPI, Change in Body Appearance, Change in Libido, Cold Intolorance, Deepening of Voice, Excessive Sweating, Fatigue, Flushing, Heat Intolorance, Increase in Ring/Shoe/Hat Size, Palpitations, Polydipsia, Polyphagia, Polyuria, Other - Hematologic/Lymphatic Hematologic: absent: As Per HPI, Easy Bleeding, Easy Bruising, Lymphadenopathy, Other Past Patient History - Infectious Disease Hx of Infectious Diseases: None - Past Medical History & Family History Past Medical History?: Yes - Past Social History Smoking Status: Former Smoker - CARDIAC Hx Cardiac Disorders: Yes Hx Hypertension: Yes - PULMONARY Hx Respiratory Disorders: No - NEUROLOGICAL Hx Neurological Disorder: No - HEENT Hx HEENT Problems: No - RENAL Hx Chronic Kidney Disease: No - ENDOCRINE/METABOLIC Hx Endocrine Disorders: No - HEMATOLOGICAL/ONCOLOGICAL Hx Blood Disorders: No - INTEGUMENTARY Hx Dermatological Problems: No - MUSCULOSKELETAL/RHEUMATOLOGICAL Hx Musculoskeletal Disorders: Yes - GASTROINTESTINAL Hx Gastrointestinal Disorders: No Hx Colostomy: Yes (november-2016) - GENITOURINARY/GYNECOLOGICAL Hx Genitourinary Disorders: No - PSYCHIATRIC Hx Psychophysiologic Disorder: No - SURGICAL HISTORY Hx Surgeries: No - ANESTHESIA Hx Anesthesia: No Meds Allergies/Adverse Reactions: Allergies Allergy/AdvReac Type Severity Reaction Status Date / Time shrimp Allergy SHORTNESS Verified 04/04/17 18:11 OF BREATH soy Allergy SHORTNESS Verified 04/04/17 18:11 OF BREATH - Medications Medications: Current Medications Aspirin (Aspirin Chewable) 81 mg PO DAILY [facility] Last Admin: 07/05/17 10:24 Dose: 81 mg Cefazolin Sodium/Dextrose (Ancef Iv 2 Gm Duplex) 2 gm in 50 mls @ 50 mls/hr IVPB Q12 [facility] PRN Reason: Protocol Last Admin: 07/05/17 10:23 Dose: 50 mls/hr Potassium Chloride 20 meq/ (Sodium Chloride) 1,010 mls @ 100 mls/hr IV .Q10H6M [facility] Stop: 07/06/17 08:40 Metoprolol Succinate (Toprol Xl) 25 mg PO DAILY [facility] Last Admin: 07/05/17 10:24 Dose: 25 mg Ondansetron HCl (Zofran Inj) 4 mg IVP Q6 PRN PRN Reason: Nausea/Vomiting Last Admin: 07/05/17 10:26 Dose: 4 mg Physical Exam - Constitutional Appears: Non-toxic - Head Exam Head Exam: NORMAL INSPECTION - Eye Exam Eye Exam: Normal appearance - ENT Exam ENT Exam: Mucous Membranes Moist - Neck Exam Neck exam: Positive for: Full Rom - Respiratory Exam Respiratory Exam: NORMAL BREATHING PATTERN - Cardiovascular Exam Cardiovascular Exam: Tachycardia, REGULAR RHYTHM - GI/Abdominal Exam GI & Abdominal Exam: Normal Bowel Sounds - Rectal Exam Rectal Exam: Deferred - Extremities Exam Extremities exam: Positive for: normal inspection - Back Exam Back exam: NORMAL INSPECTION - Neurological Exam Neurological exam: Alert, Oriented x3 - Psychiatric Exam Psychiatric exam: Normal Affect - Skin Skin Exam: Normal Color Results - Vital Signs Recent Vital Signs: Last Vital Signs Temp 97.2 F L 07/05/17 12:00 Pulse 117 H 07/05/17 12:00 Resp 18 07/05/17 12:00 BP 138/91 H 07/05/17 12:00 Pulse Ox 94 L 07/05/17 12:00 - Labs Result Diagrams: 07/05/17 06:55 07/05/17 06:55 Labs: Laboratory Results - last 24 hr 07/05/17 07/05/17 06:55 06:55 WBC 17.9 H D RBC 4.94 Hgb 15.6 Hct 46.6 MCV 94.2 H MCH 31.6 H MCHC 33.5 RDW 13.4 Plt Count 203 MPV 7.7 Neut % (Auto) 82.9 H Lymph % (Auto) 9.1 L [place] % (Auto) 7.8 Eos % (Auto) 0.0 Baso % (Auto) 0.2 Neut # 14.8 H Lymph # 1.6 [place] # 1.4 H Eos # 0.0 Baso # 0.0 Neutrophils % (Manual) 90 H Band Neutrophils % 1 Lymphocytes % (Manual) 4 L Monocytes % (Manual) 5 Platelet Estimate Normal RBC Morphology Normal Sodium 142 Potassium 3.4 L Chloride 108 H Carbon Dioxide 25 Anion Gap 12 BUN 15 Creatinine 0.8 Est GFR ( Amer) > 60 Est GFR (Non-Af Amer) > 60 Random Glucose 134 H Calcium 8.7 Total Bilirubin 1.2 AST 20 ALT 29 Alkaline Phosphatase 49 Total Protein 7.0 Albumin 3.7 Globulin 3.2 Albumin/Globulin Ratio 1.2 - EKG Data EKG Interpreted by: Myself EKG shows normal: Sinus rhythm Rate: Tachycardia Assessment & Plan (1) Tachycardia Assessment and Plan: likley due to increased insensible losses. recommend IV hydration. repelete K. recheck labs. conitnue betablocker. Status: Acute (2) HTN (hypertension) Assessment and Plan: Toprol XL Status: Acute
--- NOTE | 2017-07-05 14:16 | CARD ---
APPROVED REPORT EKG Measurement Heart [id number] <Conclusion> Sinus tachycardia Left anterior fascicular block Abnormal ECG
[2017-07-05] MEDS ORDERED: HYDROmorphone 1 mg/ml ISec IVP PRN (16:17)
[2017-07-05] MEDS: Potassium Chloride 20 MEQ in Sodium Chloride 0.45% 1,000 ML IV SCH (17:32)
[2017-07-05] MEDS ORDERED: HYDROmorphone 0.5 mg/0.5 ml ISec IVP PRN (17:45)
[2017-07-06] MEDS: Potassium Chloride 20 MEQ in Sodium Chloride 0.45% 1,000 ML IV SCH ×2 (05:32→05:35)
[2017-07-06 06:34] LABS: BASO % 0.2 % (0.0-2.0); HEMOGLOBIN 11.5 g/dL (12.0-18.0); LYMPH # 1.9 K/uL (1.0-4.3); LYMPH % 13.8 % (20.0-40.0); MEAN CELL VOLUME 96.1 fl (80.0-94.0); MEAN CORPUSCULAR HEMOGLOBIN 32.3 pg (27.0-31.0); MEAN CORPUSCULAR HGB CONC 33.6 g/dL (33.0-37.0); MEAN PLATELET VOLUME 8.3 fl (7.2-11.7); MONO # 1.6 K/uL (0.0-0.8); MONO % 11.8 % (0.0-10.0); NEUT # 10.1 K/uL (1.8-7.0); NEUT % 74.2 % (50.0-75.0); RBC 3.58 Mil/uL (4.40-5.90); RED CELL DISTRIBUTION WIDTH 13.3 % (11.5-14.5); WHITE BLOOD COUNT 13.7 K/uL (4.8-10.8)
[2017-07-06 07:02] LABS: ALT/SGPT 21 U/L (21-72); AST/SGOT 21 U/L (17-59); BLOOD UREA NITROGEN 29 mg/dl (9-20); CALCIUM 8.5 mg/dL (8.4-10.2); GFR AFRICAN-AMERICAN > 60; GFR NON-AFRICAN AMERICAN > 60
--- NOTE | 2017-07-06 07:09 | CP.PCM.PN ---
<Harshil Mercer - Last Filed: 07/06/17 07:06> Subjective - Date & Time of Evaluation Date of Evaluation: 07/06/17 Time of Evaluation: 07:06 - Subjective Subjective: General Surgery: Dr Beaulieu Pt S&E. POD#2 s/p right lupe-colectomy w/ colostomy reversal. Pt reports he is doing well, pain well controlled. Denies any fevers, chills, nausea or emesis. Has not yet been OOB. Has not yet passed flatus. Tolerating ice chips without difficulty. Making adequate urine. Continues to be tachycardic. Objective - Vital Signs/Intake and Output Vital Signs (last 24 hours): Temp Pulse Resp BP Pulse Ox 98.3 F 118 H 16 127/83 94 L 07/06/17 04:51 07/06/17 04:51 07/06/17 04:51 07/06/17 04:51 07/06/17 04:51 - Medications Medications: Current Medications Aspirin (Aspirin Chewable) 81 mg PO DAILY [facility] Last Admin: 07/05/17 10:24 Dose: 81 mg Enoxaparin Sodium (Lovenox) 40 mg SC DAILY [facility] PRN Reason: Protocol Hydromorphone HCl (Dilaudid) 1 mg IVP Q3H PRN PRN Reason: Pain, Mild (1-3) Potassium Chloride 20 meq/ (Sodium Chloride) 1,010 mls @ 100 mls/hr IV .Q10H6M [facility] Stop: 07/06/17 08:40 Last Admin: 07/06/17 05:35 Dose: Not Given Metoprolol Succinate (Toprol Xl) 25 mg PO DAILY [facility] Last Admin: 07/05/17 10:24 Dose: 25 mg Ondansetron HCl (Zofran Inj) 4 mg IVP Q6 PRN PRN Reason: Nausea/Vomiting Last Admin: 07/05/17 10:26 Dose: 4 mg - Labs Labs: 07/06/17 04:15 07/06/17 04:15 - Constitutional Appears: Non-toxic, No Acute Distress - ENT Exam ENT Exam: Mucous Membranes Moist - Respiratory Exam Respiratory Exam: absent: Accessory Muscle Use, Respiratory Distress - Cardiovascular Exam Cardiovascular Exam: Tachycardia, REGULAR RHYTHM - GI/Abdominal Exam GI & Abdominal Exam: Soft, Tenderness (post-op and appropriate). absent: Distended, Firm, Guarding, Rigid - Extremities Exam Extremities Exam: absent: Pedal Edema - Neurological Exam Neurological Exam: Alert, Awake, Oriented x3 - Psychiatric Exam Psychiatric exam: Normal Affect, Normal Mood - Skin Skin Exam: Normal Color, Warm Assessment and Plan - Assessment and Plan (Free Text) Assessment: 51M POD#2 s/p right lupe-colectomy w/ colostomy reversal Plan: adv to CLD OOB to chair and physical therapy D/C flores f/u electrolytes continue incentive spirometer d/w Dr Christofer Mercer, PGY3 <Edward Poole - Last Filed: 07/06/17 11:52> Subjective - Date & Time of Evaluation Time of Evaluation: 11:00 - Subjective Subjective: Patient was seen and examined at the bedside. Agree with resident's note above. No flatus or bowel movements yet. Objective - Vital Signs/Intake and Output Vital Signs (last 24 hours): Temp Pulse Resp BP Pulse Ox 98.5 F 118 H 18 117/72 93 L 07/06/17 08:21 07/06/17 09:05 07/06/17 08:21 07/06/17 09:05 07/06/17 08:21 Intake and Output: 07/06/17 07/06/17 06:59 18:59 Intake Total 1200 Output Total 400 Balance 800 - Medications Medications: Current Medications Aspirin (Aspirin Chewable) 81 mg PO DAILY [facility] Last Admin: 07/06/17 09:03 Dose: 81 mg Enoxaparin Sodium (Lovenox) 40 mg SC DAILY [facility] PRN Reason: Protocol Last Admin: 07/06/17 09:05 Dose: 40 mg Hydromorphone HCl (Dilaudid) 1 mg IVP Q3H PRN PRN Reason: Pain, Mild (1-3) Last Admin: 07/06/17 11:18 Dose: 1 mg Metoprolol Succinate (Toprol Xl) 25 mg PO DAILY [facility] Last Admin: 07/06/17 09:05 Dose: 25 mg Ondansetron HCl (Zofran Inj) 4 mg IVP Q6 PRN PRN Reason: Nausea/Vomiting Last Admin: 07/05/17 10:26 Dose: 4 mg - Labs Labs: 07/06/17 04:15 07/06/17 04:15 - GI/Abdominal Exam Additional comments: Incisions clean, no erythema, no drainage, rashid in place, no rebound, no guarding Assessment and Plan - Assessment and Plan (Free Text) Plan: - Clear liquid diet - IV fluids - pain control - Insentive spirometry - DVT ppx - Out of bed to chair - repeat labs in am
--- NOTE | 2017-07-06 07:41 | CP.PCM.PN ---
Subjective - Date & Time of Evaluation Date of Evaluation: 07/06/17 Time of Evaluation: 07:39 - Subjective Subjective: pt states less pain. no f/c, n/v/d. hr st 120s, d/c w/ dr stewart will give 1l ivf bolus then resume maintainnce ivf am labs noted. Objective - Vital Signs/Intake and Output Vital Signs (last 24 hours): Temp Pulse Resp BP Pulse Ox 98.3 F 118 H 16 127/83 94 L 07/06/17 04:51 07/06/17 04:51 07/06/17 04:51 07/06/17 04:51 07/06/17 04:51 Intake and Output: 07/06/17 07/06/17 06:59 18:59 Intake Total 1200 Output Total 400 Balance 800 - Medications Medications: Current Medications Aspirin (Aspirin Chewable) 81 mg PO DAILY [facility] Last Admin: 07/05/17 10:24 Dose: 81 mg Enoxaparin Sodium (Lovenox) 40 mg SC DAILY [facility] PRN Reason: Protocol Hydromorphone HCl (Dilaudid) 1 mg IVP Q3H PRN PRN Reason: Pain, Mild (1-3) Potassium Chloride 20 meq/ (Sodium Chloride) 1,010 mls @ 100 mls/hr IV .Q10H6M [facility] Stop: 07/06/17 08:40 Last Admin: 07/06/17 05:35 Dose: Not Given Sodium Chloride (Sodium Chloride 0.9%) 1,000 mls @ 500 mls/hr IV .Q2H [facility] Stop: 07/07/17 07:37 Metoprolol Succinate (Toprol Xl) 25 mg PO DAILY [facility] Last Admin: 07/05/17 10:24 Dose: 25 mg Ondansetron HCl (Zofran Inj) 4 mg IVP Q6 PRN PRN Reason: Nausea/Vomiting Last Admin: 07/05/17 10:26 Dose: 4 mg - Labs Labs: 07/06/17 04:15 07/06/17 04:15 - Constitutional Appears: Well, Non-toxic, No Acute Distress - Head Exam Head Exam: ATRAUMATIC, NORMAL INSPECTION, NORMOCEPHALIC - Eye Exam Eye Exam: EOMI, Normal appearance, PERRL Pupil Exam: NORMAL ACCOMODATION, PERRL - ENT Exam ENT Exam: Mucous Membranes Moist, Normal Exam - Neck Exam Neck Exam: Full ROM, Normal Inspection. absent: Lymphadenopathy - Respiratory Exam Respiratory Exam: Clear to Ausculation Bilateral, NORMAL BREATHING PATTERN - Cardiovascular Exam Cardiovascular Exam: REGULAR RHYTHM, RRR, +S1, +S2. absent: Murmur - GI/Abdominal Exam GI & Abdominal Exam: Soft, Normal Bowel Sounds. absent: Tenderness - Extremities Exam Extremities Exam: Full ROM, Normal Capillary Refill, Normal Inspection. absent : Joint Swelling, Pedal Edema - Back Exam Back Exam: NORMAL INSPECTION - Neurological Exam Neurological Exam: Alert, Awake, CN II-XII Intact, Normal Gait, Oriented x3 - Psychiatric Exam Psychiatric exam: Normal Affect, Normal Mood - Skin Skin Exam: Dry, Intact, Normal Color, Warm Assessment and Plan (1) DVT prophylaxis Status: Acute (2) Hypokalemia Status: Acute (3) Perforation of sigmoid colon due to diverticulitis Status: Acute (4) Tachycardia Status: Acute - Assessment and Plan (Free Text) Assessment: (1) DVT prophylaxis Assessment and Plan: scd and ae hose lovneox when cleared by surgery Status: Acute (2) Hypokalemia Assessment and Plan: kcl x 2 monitor Status: Acute (3) Perforation of sigmoid colon due to diverticulitis Assessment and Plan: reverse of colostmy, surgery pain control Status: Acute (4) Tachycardia Assessment and Plan: unkn etiology-?? blood loss vs pain vs unkn ivf 100ml/hr w/ k cl cardio ekg ivf bolus tele monitoring Status: Acute
[2017-07-06] MEDS ORDERED: Sodium Chloride 0.9% 1,000 ML IV SCH (07:45)
[2017-07-06] MEDS: Enoxaparin 40 mg Syringe SC SCH (09:05)
[2017-07-06] MEDS: Metoprolol Succinate 25 mg XL Tab PO SCH (09:05)
[2017-07-06] MEDS ORDERED: Metoprolol Succinate 25 mg XL Tab PO SCH (21:00)
--- NOTE | 2017-07-07 07:38 | CP.PCM.PN ---
Subjective - Date & Time of Evaluation Date of Evaluation: 07/07/17 Time of Evaluation: 05:45 - Subjective Subjective: General surgery progress note for Dr. Beaulieu Pt S & E at bedside. pt reports hiccups overnight. Per nursing- pt asking for pain medicaiton regularly. Pt reports pain not well controlled. Tolerating CLD. Denies N & V , F & C, flatus, BM. Is OOBTC. Objective - Vital Signs/Intake and Output Vital Signs (last 24 hours): Temp Pulse Resp BP Pulse Ox 99.2 F 106 H 18 144/88 94 L 07/07/17 05:34 07/07/17 05:34 07/07/17 05:34 07/07/17 05:34 07/07/17 05:34 Intake and Output: 07/07/17 07/07/17 06:59 18:59 Intake Total 1800 Output Total 400 Balance 1400 - Medications Medications: Current Medications Aspirin (Aspirin Chewable) 81 mg PO DAILY [facility] Last Admin: 07/06/17 09:03 Dose: 81 mg Enoxaparin Sodium (Lovenox) 40 mg SC DAILY [facility] PRN Reason: Protocol Last Admin: 07/06/17 09:05 Dose: 40 mg Hydromorphone HCl (Dilaudid) 1 mg IVP Q3H PRN PRN Reason: Pain, Mild (1-3) Last Admin: 07/07/17 06:44 Dose: 1 mg Metoprolol Succinate (Toprol Xl) 25 mg PO BID@0900,2100 [facility] Last Admin: 07/06/17 21:37 Dose: 25 mg Ondansetron HCl (Zofran Inj) 4 mg IVP Q6 PRN PRN Reason: Nausea/Vomiting Last Admin: 07/05/17 10:26 Dose: 4 mg - Labs Labs: 07/06/17 04:15 07/06/17 04:15 - Constitutional Appears: Non-toxic, No Acute Distress - Head Exam Head Exam: ATRAUMATIC, NORMAL INSPECTION, NORMOCEPHALIC - Eye Exam Eye Exam: EOMI, Normal appearance - ENT Exam ENT Exam: Mucous Membranes Moist, Normal Exam - Respiratory Exam Respiratory Exam: NORMAL BREATHING PATTERN - Cardiovascular Exam Cardiovascular Exam: REGULAR RHYTHM, +S1, +S2 - GI/Abdominal Exam GI & Abdominal Exam: Soft. absent: Distended, Firm, Guarding, Rigid, Tenderness Additional comments: Farnaz in place over incision sites, no drainage or erythema noted - Extremities Exam Extremities Exam: Normal Inspection - Neurological Exam Neurological Exam: Alert, Awake, CN II-XII Intact, Oriented x3 - Psychiatric Exam Psychiatric exam: Normal Affect, Normal Mood - Skin Skin Exam: Dry, Intact, Normal Color, Warm Assessment and Plan - Assessment and Plan (Free Text) Assessment: 51M POD#3 s/p right lupe-colectomy w/ colostomy reversal Plan: Cont with CLD until bowel function returns OOBTC PT Ambulate FU electrolytes Encourage IS use DW attending Eleanor, PGY-1
[2017-07-07 07:40] LABS: BASO % 0.6 % (0.0-2.0); EOS % 0.9 % (0.0-4.0); HEMOGLOBIN 10.5 g/dL (12.0-18.0); LYMPH # 1.5 K/uL (1.0-4.3); LYMPH % 28.3 % (20.0-40.0); MEAN CELL VOLUME 96.4 fl (80.0-94.0); MEAN CORPUSCULAR HEMOGLOBIN 31.8 pg (27.0-31.0); MEAN PLATELET VOLUME 8.2 fl (7.2-11.7); MONO % 20.1 % (0.0-10.0); NEUT # 2.6 K/uL (1.8-7.0); NEUT % 50.1 % (50.0-75.0); NRBC % 0.1 % (0.0-0.0); PLATELET COUNT 192 K/uL (130-400); RED CELL DISTRIBUTION WIDTH 13.3 % (11.5-14.5); WHITE BLOOD COUNT 5.2 K/uL (4.8-10.8)
--- NOTE | 2017-07-07 07:44 | CP.PCM.PN ---
Subjective - Date & Time of Evaluation Date of Evaluation: 07/07/17 Time of Evaluation: 07:42 - Subjective Subjective: doing better, no f/c, n/v/d. surgical site c/d/i. hr 110. am labs pending no c/opain Objective - Vital Signs/Intake and Output Vital Signs (last 24 hours): Temp Pulse Resp BP Pulse Ox 99.2 F 106 H 18 144/88 94 L 07/07/17 05:34 07/07/17 05:34 07/07/17 05:34 07/07/17 05:34 07/07/17 05:34 Intake and Output: 07/07/17 07/07/17 06:59 18:59 Intake Total 1800 Output Total 400 Balance 1400 - Medications Medications: Current Medications Aspirin (Aspirin Chewable) 81 mg PO DAILY [facility] Last Admin: 07/06/17 09:03 Dose: 81 mg Enoxaparin Sodium (Lovenox) 40 mg SC DAILY [facility] PRN Reason: Protocol Last Admin: 07/06/17 09:05 Dose: 40 mg Hydromorphone HCl (Dilaudid) 1 mg IVP Q3H PRN PRN Reason: Pain, Mild (1-3) Last Admin: 07/07/17 06:44 Dose: 1 mg Sodium Chloride (Sodium Chloride 0.9%) 1,000 mls @ 125 mls/hr IV .Q8H [facility] Stop: 07/08/17 07:42 Metoprolol Succinate (Toprol Xl) 25 mg PO BID@0900,2100 [facility] Last Admin: 07/06/17 21:37 Dose: 25 mg Ondansetron HCl (Zofran Inj) 4 mg IVP Q6 PRN PRN Reason: Nausea/Vomiting Last Admin: 07/05/17 10:26 Dose: 4 mg - Labs Labs: 07/06/17 04:15 07/06/17 04:15 - Constitutional Appears: Well, Non-toxic, No Acute Distress - Head Exam Head Exam: ATRAUMATIC, NORMAL INSPECTION, NORMOCEPHALIC - Eye Exam Eye Exam: EOMI, Normal appearance, PERRL Pupil Exam: NORMAL ACCOMODATION, PERRL - ENT Exam ENT Exam: Mucous Membranes Moist, Normal Exam - Neck Exam Neck Exam: Full ROM, Normal Inspection. absent: Lymphadenopathy - Respiratory Exam Respiratory Exam: Clear to Ausculation Bilateral, NORMAL BREATHING PATTERN - Cardiovascular Exam Cardiovascular Exam: REGULAR RHYTHM, RRR, +S1, +S2. absent: Murmur - GI/Abdominal Exam GI & Abdominal Exam: Soft, Normal Bowel Sounds. absent: Tenderness - Extremities Exam Extremities Exam: Full ROM, Normal Capillary Refill, Normal Inspection. absent : Joint Swelling, Pedal Edema - Back Exam Back Exam: NORMAL INSPECTION - Neurological Exam Neurological Exam: Alert, Awake, CN II-XII Intact, Normal Gait, Oriented x3 - Psychiatric Exam Psychiatric exam: Normal Affect, Normal Mood - Skin Skin Exam: Dry, Intact, Normal Color, Warm Assessment and Plan (1) DVT prophylaxis Status: Acute (2) Hypokalemia Status: Acute (3) Perforation of sigmoid colon due to diverticulitis Status: Acute (4) Tachycardia Status: Acute - Assessment and Plan (Free Text) Assessment: (1) DVT prophylaxis Assessment and Plan: scd and ae hose lovneox Status: Acute (2) Hypokalemia Assessment and Plan: kcl x 2 monitor Status: Acute (3) Perforation of sigmoid colon due to diverticulitis Assessment and Plan: reverse of colostmy, surgery pain control Status: Acute (4) Tachycardia Assessment and Plan: unkn etiology-?? blood loss vs pain vs unkn ivf 100ml/hr cardio ekg ivf bolus tele monitoring monitor k Status: Acute
[2017-07-07 07:54] LABS: BLOOD UREA NITROGEN 33 mg/dl (9-20); CALCIUM 8.4 mg/dL (8.4-10.2); GFR AFRICAN-AMERICAN > 60; GFR NON-AFRICAN AMERICAN > 60
[2017-07-07] MEDS: Sodium Chloride 0.9% 1,000 ML IV SCH ×2 (09:36→17:51)
[2017-07-07] MEDS: Enoxaparin 40 mg Syringe SC SCH (09:36)
[2017-07-07] MEDS: Metoprolol Succinate 50 mg XL Tab PO SCH ×2 (09:37→20:42)
[2017-07-07 12:59] LABS: BANDS 7 % (0-2); BASOPHIL 1 % (0-2); EOSINOPHIL 2 % (0-7); LYMPHOCYTE 29 % (20-50); MONOCYTE 16 % (0-10); NEUTROPHIL 45 % (42-75); PLATELET ESTIMATE NORMAL (NORMAL); TOTAL CELLS COUNTED 100
[2017-07-07 13:02] LABS: HYPOCHROMIC SLIGHT
--- NOTE | 2017-07-07 16:20 | CP.PCM.PN ---
Subjective - Date & Time of Evaluation Date of Evaluation: 07/07/17 Time of Evaluation: 16:15 - Subjective Subjective: I discussed with Dr Rosas this morning. agree with Toprol 50 mg BID. heart rate is controlled. Objective - Vital Signs/Intake and Output Vital Signs (last 24 hours): Temp Pulse Resp BP Pulse Ox 98.7 F 88 19 135/82 94 L 07/07/17 16:14 07/07/17 16:14 07/07/17 16:14 07/07/17 16:14 07/07/17 16:14 Intake and Output: 07/07/17 07/07/17 06:59 18:59 Intake Total 1800 Output Total 400 Balance 1400 - Medications Medications: Current Medications Aspirin (Aspirin Chewable) 81 mg PO DAILY [facility] Last Admin: 07/07/17 09:35 Dose: 81 mg Enoxaparin Sodium (Lovenox) 40 mg SC DAILY [facility] PRN Reason: Protocol Last Admin: 07/07/17 09:36 Dose: 40 mg Hydromorphone HCl (Dilaudid) 1 mg IVP Q3H PRN PRN Reason: Pain, Mild (1-3) Last Admin: 07/07/17 06:44 Dose: 1 mg Sodium Chloride (Sodium Chloride 0.9%) 1,000 mls @ 125 mls/hr IV .Q8H [facility] Stop: 07/08/17 07:42 Last Admin: 07/07/17 09:36 Dose: 125 mls/hr Metoprolol Succinate (Toprol Xl) 50 mg PO BID@0900,2100 [facility] Last Admin: 07/07/17 09:37 Dose: 50 mg Ondansetron HCl (Zofran Inj) 4 mg IVP Q6 PRN PRN Reason: Nausea/Vomiting Last Admin: 07/05/17 10:26 Dose: 4 mg - Labs Labs: 07/07/17 05:50 07/07/17 05:50 Assessment and Plan (1) Tachycardia Status: Acute (2) HTN (hypertension) Status: Acute
[2017-07-08] MEDS: Sodium Chloride 0.9% 1,000 ML IV SCH (01:30)
[2017-07-08] MEDS: Metoprolol Succinate 50 mg XL Tab PO SCH ×2 (08:37→22:01)
[2017-07-08] MEDS: Enoxaparin 40 mg Syringe SC SCH (08:37)
--- NOTE | 2017-07-08 09:16 | CP.PCM.PN ---
Subjective - Date & Time of Evaluation Date of Evaluation: 07/08/17 Time of Evaluation: 09:15 - Subjective Subjective: General Surgery: Dr Beaulieu Pt S&E. [place]. Sitting up in chair. reports pain is well controlled. Tachycardia has resolved. Tolerating clears but now burping a lot. Has not yet passed flatus. Denies n/v, f/c Objective - Vital Signs/Intake and Output Vital Signs (last 24 hours): Temp Pulse Resp BP Pulse Ox 99.0 F 91 H 20 132/86 99 07/08/17 08:09 07/08/17 08:37 07/08/17 08:09 07/08/17 08:37 07/08/17 08:09 - Medications Medications: Current Medications Aspirin (Aspirin Chewable) 81 mg PO DAILY [facility] Last Admin: 07/08/17 08:36 Dose: 81 mg Enoxaparin Sodium (Lovenox) 40 mg SC DAILY [facility] PRN Reason: Protocol Last Admin: 07/08/17 08:37 Dose: 40 mg Hydromorphone HCl (Dilaudid) 1 mg IVP Q3H PRN PRN Reason: Pain, Mild (1-3) Last Admin: 07/08/17 08:43 Dose: 1 mg Metoprolol Succinate (Toprol Xl) 50 mg PO BID@0900,2100 [facility] Last Admin: 07/08/17 08:37 Dose: 50 mg Ondansetron HCl (Zofran Inj) 4 mg IVP Q6 PRN PRN Reason: Nausea/Vomiting Last Admin: 07/07/17 22:10 Dose: 4 mg - Labs Labs: 07/07/17 05:50 07/07/17 05:50 - Constitutional Appears: Non-toxic, No Acute Distress - Respiratory Exam Respiratory Exam: absent: Accessory Muscle Use, Respiratory Distress - Cardiovascular Exam Cardiovascular Exam: REGULAR RHYTHM. absent: Tachycardia - GI/Abdominal Exam GI & Abdominal Exam: Soft. absent: Distended, Firm, Guarding, Tenderness Additional comments: midline dressing with minimal streak through, will change today - Neurological Exam Neurological Exam: Alert, Awake, Oriented x3 - Psychiatric Exam Psychiatric exam: Normal Affect, Normal Mood - Skin Skin Exam: Normal Color, Warm Assessment and Plan - Assessment and Plan (Free Text) Assessment: 51M POD#4 s/p colostomy reversal w/ right hemicolectomy Plan: tachy resolved - tx to med/surg OOB and ambulate awaiting flatus before adv diet cont IS DVT prophylaxis switch to PO pain control d/w Dr Christofer Mercer, PGY3
[2017-07-08 10:11] LABS: BASO % 0.4 % (0.0-2.0); EOS # 0.2 K/uL (0.0-0.7); EOS % 3.6 % (0.0-4.0); HEMOGLOBIN 9.2 g/dL (12.0-18.0); LYMPH # 1.2 K/uL (1.0-4.3); LYMPH % 19.9 % (20.0-40.0); MEAN CELL VOLUME 95.8 fl (80.0-94.0); MEAN CORPUSCULAR HGB CONC 33.5 g/dL (33.0-37.0); MONO # 0.9 K/uL (0.0-0.8); MONO % 14.8 % (0.0-10.0); NEUT # 3.8 K/uL (1.8-7.0); NEUT % 61.3 % (50.0-75.0); NRBC % 0.1 % (0.0-0.0); RBC 2.88 Mil/uL (4.40-5.90); RED CELL DISTRIBUTION WIDTH 13.1 % (11.5-14.5); WHITE BLOOD COUNT 6.2 K/uL (4.8-10.8)
--- NOTE | 2017-07-08 10:11 | CP.PCM.PN ---
Subjective - Date & Time of Evaluation Date of Evaluation: 07/08/17 Time of Evaluation: 10:10 - Subjective Subjective: pt doing well, hr 90s, pain controlled at present. no bm. no f/c, n/v/d. case d/c w/ dionne stewart/nisha Objective - Vital Signs/Intake and Output Vital Signs (last 24 hours): Temp Pulse Resp BP Pulse Ox 99.0 F 91 H 20 132/86 99 07/08/17 08:09 07/08/17 08:37 07/08/17 08:09 07/08/17 08:37 07/08/17 08:09 - Medications Medications: Current Medications Aspirin (Aspirin Chewable) 81 mg PO DAILY [facility] Last Admin: 07/08/17 08:36 Dose: 81 mg Enoxaparin Sodium (Lovenox) 40 mg SC DAILY [facility] PRN Reason: Protocol Last Admin: 07/08/17 08:37 Dose: 40 mg Metoprolol Succinate (Toprol Xl) 50 mg PO BID@0900,2100 [facility] Last Admin: 07/08/17 08:37 Dose: 50 mg Ondansetron HCl (Zofran Inj) 4 mg IVP Q6 PRN PRN Reason: Nausea/Vomiting Last Admin: 07/07/17 22:10 Dose: 4 mg Oxycodone/Acetaminophen (Percocet 5/325 Mg Tab) 1 tab PO Q4 PRN PRN Reason: Pain, Mild (1-3) Stop: 07/11/17 09:14 - Labs Labs: 07/07/17 05:50 07/07/17 05:50 - Constitutional Appears: Well, Non-toxic, No Acute Distress - Head Exam Head Exam: ATRAUMATIC, NORMAL INSPECTION, NORMOCEPHALIC - Eye Exam Eye Exam: EOMI, Normal appearance, PERRL Pupil Exam: NORMAL ACCOMODATION, PERRL - ENT Exam ENT Exam: Mucous Membranes Moist, Normal Exam - Neck Exam Neck Exam: Full ROM, Normal Inspection. absent: Lymphadenopathy - Respiratory Exam Respiratory Exam: Clear to Ausculation Bilateral, NORMAL BREATHING PATTERN - Cardiovascular Exam Cardiovascular Exam: REGULAR RHYTHM, RRR, +S1, +S2. absent: Murmur - GI/Abdominal Exam GI & Abdominal Exam: Soft, Normal Bowel Sounds. absent: Tenderness - Extremities Exam Extremities Exam: Full ROM, Normal Capillary Refill, Normal Inspection. absent : Joint Swelling, Pedal Edema - Back Exam Back Exam: NORMAL INSPECTION - Neurological Exam Neurological Exam: Alert, Awake, CN II-XII Intact, Normal Gait, Oriented x3 - Psychiatric Exam Psychiatric exam: Normal Affect, Normal Mood - Skin Skin Exam: Dry, Intact, Normal Color, Warm Assessment and Plan (1) DVT prophylaxis Status: Acute (2) Hypokalemia Status: Acute (3) Perforation of sigmoid colon due to diverticulitis Status: Acute (4) Tachycardia Status: Acute - Assessment and Plan (Free Text) Assessment: (1) DVT prophylaxis Assessment and Plan: scd and ae hose lovneox Status: Acute (2) Hypokalemia Assessment and Plan: kcl x 2 monitor Status: Acute (3) Perforation of sigmoid colon due to diverticulitis Assessment and Plan: reverse of colostmy, surgery pain control waiting for bm Status: Acute (4) Tachycardia Assessment and Plan: ivf cardio downgrade to m/s monitor k Status: Acute
[2017-07-08 10:51] LABS: ALBUMIN 2.9 g/dL (3.5-5.0); ALT/SGPT 26 U/L (21-72); AST/SGOT 20 U/L (17-59); BLOOD UREA NITROGEN 23 mg/dl (9-20); CALCIUM 8.2 mg/dL (8.4-10.2); GFR AFRICAN-AMERICAN > 60; GFR NON-AFRICAN AMERICAN > 60
[2017-07-08] MEDS: Oxycodone/Acetaminophen 5/325 mg Tab PO PRN ×2 (11:39→22:03)
[2017-07-09 05:20] LABS: BASO % 0.3 % (0.0-2.0); EOS # 0.2 K/uL (0.0-0.7); EOS % 2.4 % (0.0-4.0); HEMOGLOBIN 9.4 g/dL (12.0-18.0); LYMPH # 1.6 K/uL (1.0-4.3); LYMPH % 19.6 % (20.0-40.0); MEAN CELL VOLUME 95.9 fl (80.0-94.0); MEAN CORPUSCULAR HEMOGLOBIN 31.7 pg (27.0-31.0); MEAN PLATELET VOLUME 7.6 fl (7.2-11.7); MONO # 1.1 K/uL (0.0-0.8); MONO % 13.3 % (0.0-10.0); NEUT # 5.2 K/uL (1.8-7.0); NEUT % 64.4 % (50.0-75.0); NRBC % 0.1 % (0.0-0.0); RBC 2.98 Mil/uL (4.40-5.90); RED CELL DISTRIBUTION WIDTH 13.2 % (11.5-14.5)
[2017-07-09 05:29] LABS: IRON 18 ug/dL (49-181)
[2017-07-09 05:34] LABS: ALBUMIN 3.1 g/dL (3.5-5.0); ALT/SGPT 30 U/L (21-72); AST/SGOT 20 U/L (17-59); BLOOD UREA NITROGEN 21 mg/dl (9-20); CALCIUM 8.4 mg/dL (8.4-10.2); GFR AFRICAN-AMERICAN > 60; GFR NON-AFRICAN AMERICAN > 60
[2017-07-09 05:39] LABS: TOTAL IRON BINDING CAPACITY 238 ug/dL (250-450)
[2017-07-09 05:41] LABS: % IRON SATURATION 8 % (20-55)
[2017-07-09] MEDS ORDERED: Potassium Chloride 20 mEq ER Tab PO ONE (06:28)
--- NOTE | 2017-07-09 08:00 | CP.PCM.PN ---
Subjective - Date & Time of Evaluation Date of Evaluation: 07/09/17 Time of Evaluation: 07:59 - Subjective Subjective: doing well. no n/v/d. no f/c. ain control.a m labs noted. hgb stable. hr 90s abd soft/nontneder, abd wound c/d/i Objective - Vital Signs/Intake and Output Vital Signs (last 24 hours): Temp Pulse Resp BP Pulse Ox 98.5 F 94 H 20 138/84 99 07/09/17 04:30 07/09/17 04:30 07/09/17 04:30 07/09/17 04:30 07/09/17 04:30 Intake and Output: 07/09/17 07/09/17 06:59 18:59 Intake Total 1080 Output Total 1000 Balance 80 - Medications Medications: Current Medications Aspirin (Aspirin Chewable) 81 mg PO DAILY [facility] Last Admin: 07/08/17 08:36 Dose: 81 mg Enoxaparin Sodium (Lovenox) 40 mg SC DAILY [facility] PRN Reason: Protocol Last Admin: 07/08/17 08:37 Dose: 40 mg Metoprolol Succinate (Toprol Xl) 50 mg PO BID@0900,2100 [facility] Last Admin: 07/08/17 22:01 Dose: 50 mg Ondansetron HCl (Zofran Inj) 4 mg IVP Q6 PRN PRN Reason: Nausea/Vomiting Last Admin: 07/07/17 22:10 Dose: 4 mg Oxycodone/Acetaminophen (Percocet 5/325 Mg Tab) 1 tab PO Q4 PRN PRN Reason: Pain, Mild (1-3) Stop: 07/11/17 09:14 Last Admin: 07/08/17 22:03 Dose: 1 tab - Labs Labs: 07/09/17 04:20 07/09/17 04:20 - Constitutional Appears: Well, Non-toxic, No Acute Distress - Head Exam Head Exam: ATRAUMATIC, NORMAL INSPECTION, NORMOCEPHALIC - Eye Exam Eye Exam: EOMI, Normal appearance, PERRL Pupil Exam: NORMAL ACCOMODATION, PERRL - ENT Exam ENT Exam: Mucous Membranes Moist, Normal Exam - Neck Exam Neck Exam: Full ROM, Normal Inspection. absent: Lymphadenopathy - Respiratory Exam Respiratory Exam: Clear to Ausculation Bilateral, NORMAL BREATHING PATTERN - Cardiovascular Exam Cardiovascular Exam: REGULAR RHYTHM, RRR, +S1, +S2. absent: Murmur - GI/Abdominal Exam GI & Abdominal Exam: Soft, Normal Bowel Sounds. absent: Tenderness - Extremities Exam Extremities Exam: Full ROM, Normal Capillary Refill, Normal Inspection. absent : Joint Swelling, Pedal Edema - Back Exam Back Exam: NORMAL INSPECTION - Neurological Exam Neurological Exam: Alert, Awake, CN II-XII Intact, Normal Gait, Oriented x3 - Psychiatric Exam Psychiatric exam: Normal Affect, Normal Mood - Skin Skin Exam: Dry, Intact, Normal Color, Warm Assessment and Plan (1) DVT prophylaxis Status: Acute (2) Hypokalemia Status: Acute (3) Perforation of sigmoid colon due to diverticulitis Status: Acute (4) Tachycardia Status: Acute - Assessment and Plan (Free Text) Assessment: (1) DVT prophylaxis Assessment and Plan: scd and ae hose lovneox Status: Acute (2) Hypokalemia Assessment and Plan: kdur monitor Status: Acute (3) Perforation of sigmoid colon due to diverticulitis Assessment and Plan: reverse of colostmy, surgery pain control waiting for bm, passing flatus Status: Acute (4) Tachycardia Assessment and Plan: ivf cardio downgrade to m/s monitor k Status: Acute overall doingwell
--- NOTE | 2017-07-09 08:10 | CP.PCM.PN ---
<Julia Webster - Last Filed: 07/09/17 10:28> Subjective - Date & Time of Evaluation Date of Evaluation: 07/09/17 Time of Evaluation: 06:45 - Subjective Subjective: General surgery progress note for Dr. Sundeep Webster, PGY-1 Pt S & E at bedside. Pt reports ambulation, flatus, hiccups, OOBTC, ab pain controlled. Objective - Vital Signs/Intake and Output Vital Signs (last 24 hours): Temp Pulse Resp BP Pulse Ox 98.5 F 94 H 20 138/84 99 07/09/17 04:30 07/09/17 04:30 07/09/17 04:30 07/09/17 04:30 07/09/17 04:30 Intake and Output: 07/09/17 07/09/17 06:59 18:59 Intake Total 1080 Output Total 1000 Balance 80 - Medications Medications: Current Medications Aspirin (Aspirin Chewable) 81 mg PO DAILY [facility] Last Admin: 07/08/17 08:36 Dose: 81 mg Enoxaparin Sodium (Lovenox) 40 mg SC DAILY [facility] PRN Reason: Protocol Last Admin: 07/08/17 08:37 Dose: 40 mg Metoprolol Succinate (Toprol Xl) 50 mg PO BID@0900,2100 [facility] Last Admin: 07/08/17 22:01 Dose: 50 mg Ondansetron HCl (Zofran Inj) 4 mg IVP Q6 PRN PRN Reason: Nausea/Vomiting Last Admin: 07/07/17 22:10 Dose: 4 mg Oxycodone/Acetaminophen (Percocet 5/325 Mg Tab) 1 tab PO Q4 PRN PRN Reason: Pain, Mild (1-3) Stop: 07/11/17 09:14 Last Admin: 07/08/17 22:03 Dose: 1 tab - Labs Labs: 07/09/17 04:20 07/09/17 04:20 - Constitutional Appears: Non-toxic, No Acute Distress - Head Exam Head Exam: ATRAUMATIC, NORMAL INSPECTION, NORMOCEPHALIC - Eye Exam Eye Exam: EOMI, Normal appearance - ENT Exam ENT Exam: Mucous Membranes Moist, Normal Exam - Neck Exam Neck Exam: Full ROM, Normal Inspection - Respiratory Exam Respiratory Exam: NORMAL BREATHING PATTERN - Cardiovascular Exam Cardiovascular Exam: REGULAR RHYTHM, +S1, +S2 - GI/Abdominal Exam GI & Abdominal Exam: Soft. absent: Distended, Firm, Guarding, Rigid, Tenderness - Extremities Exam Extremities Exam: Normal Inspection - Neurological Exam Neurological Exam: Alert, Awake, CN II-XII Intact, Oriented x3 - Psychiatric Exam Psychiatric exam: Normal Affect, Normal Mood - Skin Skin Exam: Dry, Intact, Normal Color, Warm Assessment and Plan - Assessment and Plan (Free Text) Assessment: 51M POD#5 s/p colostomy reversal w/ right hemicolectomy Plan: OOBTC Ambulate OK to shower Had flatus- will hold off advancing diet until has more Encourage IS use DVT ppx Cont PO pain control Avoid carbonated drinks Ok to transfer to med-surg DW attending Eleanor, PGY-1 <Edward Poole - Last Filed: 07/09/17 10:34> Subjective - Date & Time of Evaluation Time of Evaluation: 10:00 - Subjective Subjective: Patient was seen and examined at the bedside. Agree with resident's note above Objective - Vital Signs/Intake and Output Vital Signs (last 24 hours): Temp Pulse Resp BP Pulse Ox 98.3 F 88 18 148/86 98 07/09/17 08:28 07/09/17 09:29 07/09/17 08:28 07/09/17 09:29 07/09/17 08:28 Intake and Output: 07/09/17 07/09/17 06:59 18:59 Intake Total 1080 Output Total 1000 Balance 80 - Medications Medications: Current Medications Aspirin (Aspirin Chewable) 81 mg PO DAILY [facility] Last Admin: 07/09/17 09:29 Dose: 81 mg Enoxaparin Sodium (Lovenox) 40 mg SC DAILY [facility] PRN Reason: Protocol Last Admin: 07/09/17 09:29 Dose: 40 mg Metoprolol Succinate (Toprol Xl) 50 mg PO BID@0900,2100 [facility] Last Admin: 07/09/17 09:29 Dose: 50 mg Ondansetron HCl (Zofran Inj) 4 mg IVP Q6 PRN PRN Reason: Nausea/Vomiting Last Admin: 07/07/17 22:10 Dose: 4 mg Oxycodone/Acetaminophen (Percocet 5/325 Mg Tab) 1 tab PO Q4 PRN PRN Reason: Pain, Mild (1-3) Stop: 07/11/17 09:14 Last Admin: 07/09/17 09:28 Dose: 1 tab - Labs Labs: 07/09/17 04:20 07/09/17 04:20 - GI/Abdominal Exam GI & Abdominal Exam: Normal Bowel Sounds Additional comments: no rebound, no guarding, incision clean, no erythema, no drainage, rashid in place - Rectal Exam Rectal Exam: Deferred Assessment and Plan - Assessment and Plan (Free Text) Plan: Will keep on clear liquid for now
[2017-07-09] MEDS: Oxycodone/Acetaminophen 5/325 mg Tab PO PRN ×2 (09:28→15:28)
[2017-07-09] MEDS: Enoxaparin 40 mg Syringe SC SCH (09:29)
[2017-07-09] MEDS: Metoprolol Succinate 50 mg XL Tab PO SCH (09:29)
[2017-07-09 16:57] VITALS: RESP 14
[2017-07-09] MEDS ORDERED: Alum-Mag Hydrox-Simethicone Susp (30 mL) PO PRN (17:26)
[2017-07-09 20:51] VITALS: BP 152/79; PULSE 81; TEMP 97.9; O2SAT 100
--- NOTE | 2017-07-10 08:06 | CP.PCM.DIS ---
Provider - Provider Date of Admission: 07/04/17 12:14 Attending physician: Mic Beaulieu MD Primary care physician: NO FAMILY PROVIDER Time Spent in preparation of Discharge (in minutes): 15 Diagnosis - Discharge Diagnosis (1) DVT prophylaxis Status: Acute (2) Hypokalemia Status: Acute (3) Perforation of sigmoid colon due to diverticulitis Status: Acute (4) Tachycardia Status: Acute Hospital Course - Lab Results Lab Results: Most Recent Lab Values WBC 8.0 K/uL (4.8-10.8) 07/09/17 04:20 RBC 2.98 Mil/uL (4.40-5.90) L 07/09/17 04:20 Hgb 9.4 g/dL (12.0-18.0) L 07/09/17 04:20 Hct 28.5 % (35.0-51.0) L 07/09/17 04:20 MCV 95.9 fl (80.0-94.0) H 07/09/17 04:20 MCH 31.7 pg (27.0-31.0) H 07/09/17 04:20 MCHC 33.0 g/dL (33.0-37.0) 07/09/17 04:20 RDW 13.2 % (11.5-14.5) 07/09/17 04:20 Plt Count 196 K/uL (130-400) 07/09/17 04:20 MPV 7.6 fl (7.2-11.7) 07/09/17 04:20 Neut % (Auto) 64.4 % (50.0-75.0) 07/09/17 04:20 Lymph % (Auto) 19.6 % (20.0-40.0) L 07/09/17 04:20 Becker % (Auto) 13.3 % (0.0-10.0) H 07/09/17 04:20 Eos % (Auto) 2.4 % (0.0-4.0) 07/09/17 04:20 Baso % (Auto) 0.3 % (0.0-2.0) 07/09/17 04:20 Neut # 5.2 K/uL (1.8-7.0) 07/09/17 04:20 Lymph # 1.6 K/uL (1.0-4.3) 07/09/17 04:20 Becker # 1.1 K/uL (0.0-0.8) H 07/09/17 04:20 Eos # 0.2 K/uL (0.0-0.7) 07/09/17 04:20 Baso # 0.0 K/uL (0.0-0.2) 07/09/17 04:20 Neutrophils % (Manual) 45 % (42-75) 07/07/17 05:50 Band Neutrophils % 7 % (0-2) H 07/07/17 05:50 Lymphocytes % (Manual) 29 % (20-50) 07/07/17 05:50 Monocytes % (Manual) 16 % (0-10) H 07/07/17 05:50 Eosinophils % (Manual) 2 % (0-7) 07/07/17 05:50 Basophils % (Manual) 1 % (0-2) 07/07/17 05:50 Platelet Estimate Normal (NORMAL) 07/07/17 05:50 RBC Morphology Normal (NORMAL) 07/05/17 06:55 Hypochromasia (manual) Slight 07/07/17 05:50 Macrocytosis (manual) Slight 07/07/17 05:50 Sodium 142 mmol/l (132-148) 07/09/17 04:20 Potassium 3.4 MMOL/L (3.6-5.0) L 07/09/17 04:20 Chloride 106 mmol/L (98-107) 07/09/17 04:20 Carbon Dioxide 26 mmol/L (22-30) 07/09/17 04:20 Anion Gap 13 (10-20) 07/09/17 04:20 BUN 21 mg/dl (9-20) H 07/09/17 04:20 Creatinine 0.7 mg/dl (0.8-1.5) L 07/09/17 04:20 Est GFR ( Amer) > 60 07/09/17 04:20 Est GFR (Non-Af Amer) > 60 07/09/17 04:20 POC Glucose (mg/dL) 109 mg/dL (65-110) 07/07/17 15:44 Random Glucose 97 mg/dL (75-110) 07/09/17 04:20 Calcium 8.4 mg/dL (8.4-10.2) 07/09/17 04:20 Iron 18 ug/dL (49-181) L 07/09/17 04:20 TIBC 238 ug/dL (250-450) L 07/09/17 04:20 % Saturation 8 % (20-55) L 07/09/17 04:20 Transferrin 153.51 mg/dL (206-381) L 07/09/17 04:20 Ferritin 185.0 ng/Ml (17.9-464) 07/09/17 04:20 Total Bilirubin 0.6 mg/dl (0.2-1.3) 07/09/17 04:20 AST 20 U/L (17-59) 07/09/17 04:20 ALT 30 U/L (21-72) 07/09/17 04:20 Alkaline Phosphatase 47 U/L (38-126) 07/09/17 04:20 Total Protein 6.1 G/DL (6.3-8.2) L 07/09/17 04:20 Albumin 3.1 g/dL (3.5-5.0) L 07/09/17 04:20 Globulin 3.0 gm/dL (2.2-3.9) 07/09/17 04:20 Albumin/Globulin Ratio 1.0 (1.0-2.1) 07/09/17 04:20 Discharge Exam - Head Exam Head Exam: ATRAUMATIC, NORMAL INSPECTION, NORMOCEPHALIC Discharge Plan - Follow Up Plan Condition: GOOD Disposition: TRANSF TO SNF Additional Instructions: pt doing well, cleared for tcu. no distress. no f/c, n/v/d. pain control dx diverticulitis s/p reversal of colostomy Referrals: FAMILY PROVIDER,NO [Primary Care Provider] -
--- NOTE | 2017-07-18 21:16 | OP ---
PROCEDURE DATE: 07/04/2017 PROCEDURES: Laparotomy, reversal of El's with end-to-end anastomosis, right hemicolectomy with ileocolic anastomosis. PREOPERATIVE DIAGNOSES: Colostomy from prior diverticulitis, status post El's and right colon mass on colonoscopy. ESTIMATED BLOOD LOSS: 100 mL SURGEON: Mic Beaulieu MD BEDSPREAD FOLDER: Shiva Walsh MD TYPE OF ANESTHESIA: General anesthesia. DESCRIPTION OF PROCEDURE: The patient was taken to the operating room and placed supine on the operating table. After induction of general anesthesia, the patient had a Espinosa catheter placed, the abdomen was then prepped and draped in the standard surgical fashion. The colostomy was oversewn using 2-0 silk suture. The patient had the prior midline laparotomy opened using a #10 blade, carried down through the skin and subcutaneous tissues. This was extended above the umbilicus. The patient then had the fascia incised, grasped between clamps and pulled upwards. Once that was done, the fascia and peritoneum were entered. The abdomen was then entered. There were some adhesions to the anterior abdominal wall, which were taken down using a combination of traction and a sharp dissection with the Metzenbaum scissors. The patient was found to have a hernia in the lower portion of the abdomen where the fascia had retracted laterally. Once all of the adhesions were taken care off, the distal stump was found and there were adhesions to the distal stump which were taken down sharply using the Metzenbaum scissors. Once the distal stump was completely freed, the proximal stump was then identified to the abdominal wall. The adhesions to the proximal stump were taken down using the electrocautery as well as the Metzenbaum scissors. Once that was done, a OLLIE stapler was fired across the base of the stump where the ostomy was coming out. At that point, the colon was brought back into the abdomen. Attention was then turned to the right colon where there was an ascending colon mass which had previously been tattooed. The patient then had the mass pulled medially and the lateral attachments to the colon were taken down using the electrocautery. Once that was done, the terminal ileum was identified and freed up from the pelvic attachments. The colon was then brought upwards. The ureter was identified passing along the right gutter and was left untouched the lateral attachments as well as the attachments to the liver over the colon were taken down using the Harmonic scalpel. Once mid-transverse colon was identified, a window was made in the mesentery and a OLLIE stapler was fired across the transverse colon. A second firing of the OLLIE was done distal at the area of the terminal ileum. The mesentery was then taken using the Harmonic scalpel. The Harmonic scalpel was then used to take the entire mesentery down. There was one ileocolic vessel which was clamped and ligated using Vicryl. After that was off, the specimen was passed off the filed as the specimen and the terminal ileum and the colon were brought together in a [id number] fashion. A 3-0 silk was used in order to secure the two. An enterotomy and a colotomy were made using the electrocautery and the OLLIE stapler was placed in the colon and the small bowel. This was then fired to create the anastomosis. The anastomosis was then closed using the TA-60 stapler. The suture line was oversewn using 3-0 chromic suture. This was then brought back into the abdomen. There was no evidence of tension. Attention was then turned to the distal area of the colon where the sigmoid had previously been resected. The proximal and distal areas of the colon were then brought together in a [id number] fashion. They were sutured together using 3-0 silk sutures. A colotomy was made in the proximal and distal segment using the electrocautery. The OLLIE stapler was introduced into the colon and was fired to create anastomosis. Once that was done, this was closed using TA-60 stapler. The patient then had the suture line oversewn using 3-0 chromic suture. The colon was brought back into the abdomen. There was no evidence of tension. The abdomen was examined for bleeding, none was found. The abdomen was also examined for hemostasis and there was no evidence of bleeding. The colostomy was then cored out at the level of the skin by making an elliptical incision over the colostomy with the electrocautery carried down through the skin and subcutaneous tissues. Combination of traction and sharp dissection was used and the electrocautery was used to cored out the colostomy. The colostomy site was then closed using interrupted 0 PDS with 2 sutures being placed from the inside as well as 2 sutures being placed from the outside. Once that was done, the fascia was then closed in the midline using #1 PDS in a running continuous fashion. The fascial dehiscence was pulled together using the suture in order to close the hernia defect. Once that was done, the skin was then closed with rashid. The patient was then awakened from anesthesia and transported to recovery in satisfactory condition. Sponge, instrument, needle counts were correct at the end of the case. Mic Beaulieu MD
== END 2017-07-09 22:00 | DRG 331 ==
LOC: H.OPSURG 05:48 → H.TEL 12:14
PROVIDERS: ADMIT Surgery; ATTEND Surgery
PROC: 0DBK0ZZ Excision of Ascending Colon, Open Approach (ICD-10-PCS; 2017-07-04)
PROC: 0DSL0ZZ Reposition Transverse Colon, Open Approach (ICD-10-PCS; 2017-07-04 09:15)
PROC: 3E0234Z Introduction of Serum, Toxoid and Vaccine into Muscle, Percutaneous Approach (ICD-10-PCS; principal; 2017-07-05)
DX: Z43.3 Encounter for attention to colostomy (principal); E87.6 Hypokalemia; I10 Essential (primary) hypertension; Z87.891 Personal history of nicotine dependence; R00.0 Tachycardia, unspecified; R06.6 Hiccough; Z91.013 Allergy to seafood; Z23 Encounter for immunization; K63.9 Disease of intestine, unspecified

== ENCOUNTER 2017-07-09 14:37 | Inpatient (IN) | payer OTHER ==
[2017-06-27 10:15] VITALS: BMI 29.0
[2017-07-10] MEDS: Alum-Mag Hydrox-Simethicone Susp (30 mL) PO PRN ×2 (00:33→21:51)
[2017-07-10] MEDS: Oxycodone/Acetaminophen 5/325 mg Tab PO PRN ×2 (02:21→16:03)
[2017-07-10 03:15] VITALS: RESP 20
[2017-07-10 06:34] LABS: BLOOD UREA NITROGEN 18 mg/dl (9-20); CALCIUM 8.8 mg/dL (8.4-10.2); GFR AFRICAN-AMERICAN > 60; GFR NON-AFRICAN AMERICAN > 60
[2017-07-10 06:38] LABS: BASO % 0.4 % (0.0-2.0); EOS # 0.2 K/uL (0.0-0.7); EOS % 1.6 % (0.0-4.0); LYMPH % 20.7 % (20.0-40.0); MEAN CELL VOLUME 94.9 fl (80.0-94.0); MEAN CORPUSCULAR HEMOGLOBIN 32.2 pg (27.0-31.0); MEAN CORPUSCULAR HGB CONC 33.9 g/dL (33.0-37.0); MEAN PLATELET VOLUME 7.9 fl (7.2-11.7); MONO # 1.5 K/uL (0.0-0.8); MONO % 15.1 % (0.0-10.0); NEUT % 62.2 % (50.0-75.0); RBC 3.1 Mil/uL (4.40-5.90); RED CELL DISTRIBUTION WIDTH 13.1 % (11.5-14.5); WHITE BLOOD COUNT 9.7 K/uL (4.8-10.8)
[2017-07-10] MEDS ORDERED: Potassium Chloride 20 mEq ER Tab PO ONE (07:00)
--- NOTE | 2017-07-10 07:58 | CP.PCM.PN ---
<Julia Webster - Last Filed: 07/10/17 07:57> Subjective - Date & Time of Evaluation Date of Evaluation: 07/10/17 Time of Evaluation: 06:35 - Subjective Subjective: General surgery progress note for Dr. Sundeep Webster, PGY-1 Pt S & E at bedside Pt reports multiple episodes flatus, 1 episode of diarrhea, ambulation. Ab pain well controlled. Objective - Vital Signs/Intake and Output Vital Signs (last 24 hours): Temp Pulse Resp BP Pulse Ox 98.2 F 97 H 20 154/88 H 99 07/09/17 23:00 07/10/17 01:34 07/10/17 01:34 07/09/17 23:00 07/10/17 01:34 - Medications Medications: Current Medications Al Hydrox/Mg Hydrox/Simethicone (Maalox Plus 30 Ml) 30 ml PO Q6 PRN PRN Reason: Indigestion / Heartburn Last Admin: 07/10/17 00:33 Dose: 30 ml Aspirin (Aspirin Chewable) 81 mg PO DAILY [facility] Enoxaparin Sodium (Lovenox) 40 mg SC DAILY [facility] PRN Reason: Protocol Famotidine (Pepcid) 20 mg PO BID [facility] Metoprolol Succinate (Toprol Xl) 50 mg PO BID@0900,2100 [facility] Ondansetron HCl (Zofran Inj) 4 mg IVP Q6 PRN PRN Reason: Nausea/Vomiting Oxycodone/Acetaminophen (Percocet 5/325 Mg Tab) 1 tab PO Q4 PRN PRN Reason: Pain, severe (8-10) Stop: 07/12/17 22:28 Last Admin: 07/10/17 02:21 Dose: 1 tab - Labs Labs: 07/10/17 05:45 07/10/17 05:45 - Constitutional Appears: Non-toxic, No Acute Distress - Head Exam Head Exam: ATRAUMATIC, NORMAL INSPECTION, NORMOCEPHALIC - Eye Exam Eye Exam: EOMI, Normal appearance - ENT Exam ENT Exam: Mucous Membranes Moist, Normal Exam - Neck Exam Neck Exam: Full ROM, Normal Inspection - Respiratory Exam Respiratory Exam: NORMAL BREATHING PATTERN - Cardiovascular Exam Cardiovascular Exam: REGULAR RHYTHM, +S1, +S2 - GI/Abdominal Exam GI & Abdominal Exam: Soft. absent: Distended, Firm, Guarding, Tenderness - Extremities Exam Extremities Exam: Normal Inspection - Neurological Exam Neurological Exam: Alert, Awake, CN II-XII Intact, Oriented x3 - Psychiatric Exam Psychiatric exam: Normal Affect, Normal Mood - Skin Skin Exam: Dry, Intact, Normal Color, Warm Additional comments: abdominal surgical sites well healing Assessment and Plan - Assessment and Plan (Free Text) Assessment: 51M POD#6 s/p colostomy reversal w/ right hemicolectomy, transferred to TCU for rehab Plan: PT OOBTC Ambulate OK to shower Encourage IS use DVT ppx Cont PO pain control Avoid carbonated drinks Will consider advancing diet pending attending evaluation today Will DW attending Eleanor, PGY-1 <Edward Poole - Last Filed: 07/10/17 09:57> Subjective - Date & Time of Evaluation Time of Evaluation: :25 - Subjective Subjective: Patient was seen and examined at the bedside. Agree with resident's note above. Objective - Vital Signs/Intake and Output Vital Signs (last 24 hours): Temp Pulse Resp BP Pulse Ox 98.4 F 99 H 20 146/76 93 L 07/10/17 09:37 07/10/17 09:37 07/10/17 09:37 07/10/17 09:37 07/10/17 09:37 - Medications Medications: Current Medications Al Hydrox/Mg Hydrox/Simethicone (Maalox Plus 30 Ml) 30 ml PO Q6 PRN PRN Reason: Indigestion / Heartburn Last Admin: 07/10/17 00:33 Dose: 30 ml Aspirin (Aspirin Chewable) 81 mg PO DAILY [facility] Last Admin: 07/10/17 09:30 Dose: 81 mg Enoxaparin Sodium (Lovenox) 40 mg SC DAILY [facility] PRN Reason: Protocol Famotidine (Pepcid) 20 mg PO BID [facility] Last Admin: 07/10/17 09:30 Dose: 20 mg Metoprolol Succinate (Toprol Xl) 50 mg PO BID@0900,2100 [facility] Ondansetron HCl (Zofran Inj) 4 mg IVP Q6 PRN PRN Reason: Nausea/Vomiting Oxycodone/Acetaminophen (Percocet 5/325 Mg Tab) 1 tab PO Q4 PRN PRN Reason: Pain, severe (8-10) Stop: 07/12/17 22:28 Last Admin: 07/10/17 02:21 Dose: 1 tab - Labs Labs: 07/10/17 05:45 07/10/17 05:45 Assessment and Plan - Assessment and Plan (Free Text) Plan: - Keep on clear liquid diet for now
--- NOTE | 2017-07-10 08:00 | CP.PCM.HP ---
History of Present Illness - History of Present Illness History of Present Illness: pt denies complaints. no f/c n/v/d. states had a couple loose bm last night. surgical site c/d/i. am labsnoted. Present on Admission - Present on Admission Any Indicators Present on Admission: No Review of Systems - Gastrointestinal Gastrointestinal: As Per HPI Past Patient History - Infectious Disease Hx of Infectious Diseases: None - Past Medical History & Family History Past Medical History?: Yes - Past Social History Smoking Status: Heavy Smoker > 10 Cigarettes Daily - CARDIAC Hx Cardiac Disorders: Yes Hx Hypertension: Yes - PULMONARY Hx Respiratory Disorders: No - NEUROLOGICAL Hx Neurological Disorder: No - HEENT Hx HEENT Problems: No - RENAL Hx Chronic Kidney Disease: No - ENDOCRINE/METABOLIC Hx Endocrine Disorders: No - HEMATOLOGICAL/ONCOLOGICAL Hx Blood Disorders: No - INTEGUMENTARY Hx Dermatological Problems: No - MUSCULOSKELETAL/RHEUMATOLOGICAL Hx Arthritis: Yes (l knee) Hx Falls: No - GASTROINTESTINAL Hx Gastrointestinal Disorders: Yes Hx Colostomy: No (reversal jun 2017) Hx Gastroesophageal Reflux: Yes - GENITOURINARY/GYNECOLOGICAL Hx Genitourinary Disorders: No - PSYCHIATRIC Hx Substance Use: No - SURGICAL HISTORY Hx Surgeries: Yes Other/Comment: 07/04/17 reversal of adeel's colostomy, hemicolectomy - ANESTHESIA Hx Anesthesia: Yes Hx Anesthesia Reactions: No Hx Malignant Hyperthermia: No Meds Allergies/Adverse Reactions: Allergies Allergy/AdvReac Type Severity Reaction Status Date / Time shrimp Allergy SHORTNESS Verified 04/04/17 18:11 OF BREATH soy Allergy SHORTNESS Verified 04/04/17 18:11 OF BREATH Physical Exam - Constitutional Appears: Well, Non-toxic, No Acute Distress - Head Exam Head Exam: ATRAUMATIC, NORMAL INSPECTION, NORMOCEPHALIC - Eye Exam Eye Exam: EOMI, Normal appearance, PERRL Pupil Exam: NORMAL ACCOMODATION, PERRL - ENT Exam ENT Exam: Mucous Membranes Moist, Normal Exam - Neck Exam Neck exam: Positive for: Normal Inspection - Respiratory Exam Respiratory Exam: Clear to Auscultation Bilateral, NORMAL BREATHING PATTERN - Cardiovascular Exam Cardiovascular Exam: REGULAR RHYTHM, RRR, +S1, +S2 - GI/Abdominal Exam GI & Abdominal Exam: Normal Bowel Sounds, Soft. absent: Tenderness - Extremities Exam Extremities exam: Positive for: full ROM, normal capillary refill, normal inspection, pedal pulses present - Back Exam Back exam: NORMAL INSPECTION - Neurological Exam Neurological exam: Alert, CN II-XII Intact, Normal Gait, Oriented x3, Reflexes Normal - Psychiatric Exam Psychiatric exam: Normal Affect, Normal Mood - Skin Skin Exam: Dry, Intact, Normal Color, Warm Results - Vital Signs Recent Vital Signs: Last Vital Signs Temp 98.2 F 07/09/17 23:00 Pulse 97 H 07/10/17 01:34 Resp 20 07/10/17 01:34 BP 154/88 H 07/09/17 23:00 Pulse Ox 99 07/10/17 01:34 - Labs Result Diagrams: 07/10/17 05:45 07/10/17 05:45 Labs: Laboratory Results - last 24 hr 07/10/17 07/10/17 05:45 05:45 WBC 9.7 RBC 3.10 L Hgb 10.0 L Hct 29.4 L MCV 94.9 H MCH 32.2 H MCHC 33.9 RDW 13.1 Plt Count 247 MPV 7.9 Neut % (Auto) 62.2 Lymph % (Auto) 20.7 Storey % (Auto) 15.1 H Eos % (Auto) 1.6 Baso % (Auto) 0.4 Neut # 6.0 Lymph # 2.0 Storey # 1.5 H Eos # 0.2 Baso # 0.0 Sodium 142 Potassium 3.1 L Chloride 104 Carbon Dioxide 26 Anion Gap 15 BUN 18 Creatinine 0.7 L Est GFR ( Amer) > 60 Est GFR (Non-Af Amer) > 60 Random Glucose 121 H Calcium 8.8 Assessment & Plan - Assessment and Plan (Free Text) Assessment: (1) DVT prophylaxis Assessment and Plan: scd and ae hose lovneox Status: Acute (2) Hypokalemia Assessment and Plan: kdur monitor Status: Acute (3) Perforation of sigmoid colon due to diverticulitis Assessment and Plan: reverse of colostmy, surgery pain control had loose bm adv diet per surgery Status: Acute (4) Tachycardia Assessment and Plan: no further episodes cont metoprolol Status: Acute Decision To Admit - Pt Status Changed To: Hospital Disposition Of: Inpatient - Admit Certification Admit to Inpatient:: After my assessment, the patient will require hospitalization for at least two midnights. This is because of the severity of symptoms shown, intensity of services needed, and/or the medical risk in this patient being treated as an outpatient. - . Bed Request Type: Transitional Care Unit Admitting Physician: Jonnathan Snow
[2017-07-10] MEDS ORDERED: Enoxaparin 40 mg Syringe SC SCH (09:00)
[2017-07-10] MEDS: Metoprolol Succinate 50 mg XL Tab PO SCH ×2 (10:04→21:52)
[2017-07-10] MEDS: Enoxaparin 40 mg Syringe SC SCH (10:07)
[2017-07-11] MEDS: Oxycodone/Acetaminophen 5/325 mg Tab PO PRN ×3 (03:16→18:34)
[2017-07-11] MEDS: Alum-Mag Hydrox-Simethicone Susp (30 mL) PO PRN ×2 (05:29→23:05)
[2017-07-11] MEDS: Metoprolol Succinate 50 mg XL Tab PO SCH ×2 (08:39→21:12)
[2017-07-11] MEDS: Enoxaparin 40 mg Syringe SC SCH (08:40)
--- NOTE | 2017-07-11 12:08 | CP.PCM.PN ---
<Julia Webster - Last Filed: 07/11/17 12:06> Subjective - Date & Time of Evaluation Date of Evaluation: 07/11/17 Time of Evaluation: 10:40 - Subjective Subjective: General surgery progress note for Dr. Sundeep Webster, PGY-1 Pt S & E at bedside Pt reports more flatus, less nausea, continues with hiccups. Ab pain well controlled. Objective - Vital Signs/Intake and Output Vital Signs (last 24 hours): Temp Pulse Resp BP Pulse Ox 98.2 F 86 20 140/80 99 07/11/17 08:09 07/11/17 08:39 07/11/17 08:09 07/11/17 08:39 07/11/17 08:09 - Medications Medications: Current Medications Al Hydrox/Mg Hydrox/Simethicone (Maalox Plus 30 Ml) 30 ml PO Q6 PRN PRN Reason: Indigestion / Heartburn Last Admin: 07/11/17 05:29 Dose: 30 ml Aspirin (Aspirin Chewable) 81 mg PO DAILY [facility] Last Admin: 07/11/17 08:41 Dose: 81 mg Enoxaparin Sodium (Lovenox) 40 mg SC DAILY [facility] PRN Reason: Protocol Last Admin: 07/11/17 08:40 Dose: 40 mg Famotidine (Pepcid) 20 mg PO BID [facility] Last Admin: 07/11/17 08:39 Dose: 20 mg Metoprolol Succinate (Toprol Xl) 50 mg PO BID@0900,2100 [facility] Last Admin: 07/11/17 08:39 Dose: 50 mg Ondansetron HCl (Zofran Inj) 4 mg IVP Q6 PRN PRN Reason: Nausea/Vomiting Oxycodone/Acetaminophen (Percocet 5/325 Mg Tab) 1 tab PO Q4 PRN PRN Reason: Pain, severe (8-10) Stop: 07/12/17 22:28 Last Admin: 07/11/17 03:16 Dose: 1 tab - Labs Labs: 07/10/17 05:45 07/10/17 05:45 - Constitutional Appears: Non-toxic, No Acute Distress - Head Exam Head Exam: ATRAUMATIC, NORMAL INSPECTION, NORMOCEPHALIC - Eye Exam Eye Exam: EOMI, Normal appearance - ENT Exam ENT Exam: Mucous Membranes Moist, Normal Exam - Neck Exam Neck Exam: Full ROM, Normal Inspection - Respiratory Exam Respiratory Exam: NORMAL BREATHING PATTERN - Cardiovascular Exam Cardiovascular Exam: REGULAR RHYTHM - GI/Abdominal Exam GI & Abdominal Exam: Soft. absent: Distended, Firm, Guarding, Rigid, Tenderness Additional comments: rashid in place in surgical incision - Extremities Exam Extremities Exam: Full ROM, Normal Inspection. absent: Pedal Edema - Neurological Exam Neurological Exam: Alert, Awake, CN II-XII Intact, Oriented x3 - Psychiatric Exam Psychiatric exam: Normal Affect, Normal Mood - Skin Skin Exam: Dry, Intact, Normal Color, Warm Assessment and Plan - Assessment and Plan (Free Text) Assessment: 51M POD#7 s/p colostomy reversal w/ right hemicolectomy, in TCU for rehab Plan: PT OOBTC Ambulate OK to shower Encourage IS use DVT ppx Cont PO pain control Avoid carbonated drinks Will consider advancing diet pending attending evaluation today Consider CT abdomen for evaluation of hiccups cause Will DW attending Eleanor, PGY-1 <Edward Poole - Last Filed: 07/11/17 14:31> Subjective - Date & Time of Evaluation Time of Evaluation: 12:20 - Subjective Subjective: Patient was seen and examined at the bedside. Agree with resident's note above. Objective - Vital Signs/Intake and Output Vital Signs (last 24 hours): Temp Pulse Resp BP Pulse Ox 98.2 F 86 20 140/80 99 07/11/17 08:09 07/11/17 08:39 07/11/17 08:09 07/11/17 08:39 07/11/17 08:09 - Medications Medications: Current Medications Al Hydrox/Mg Hydrox/Simethicone (Maalox Plus 30 Ml) 30 ml PO Q6 PRN PRN Reason: Indigestion / Heartburn Last Admin: 07/11/17 05:29 Dose: 30 ml Aspirin (Aspirin Chewable) 81 mg PO DAILY [facility] Last Admin: 07/11/17 08:41 Dose: 81 mg Enoxaparin Sodium (Lovenox) 40 mg SC DAILY [facility] PRN Reason: Protocol Last Admin: 07/11/17 08:40 Dose: 40 mg Metoprolol Succinate (Toprol Xl) 50 mg PO BID@0900,2100 [facility] Last Admin: 07/11/17 08:39 Dose: 50 mg Ondansetron HCl (Zofran Inj) 4 mg IVP Q6 PRN PRN Reason: Nausea/Vomiting Oxycodone/Acetaminophen (Percocet 5/325 Mg Tab) 1 tab PO Q4 PRN PRN Reason: Pain, severe (8-10) Stop: 07/12/17 22:28 Last Admin: 07/11/17 13:51 Dose: 1 tab Pantoprazole Sodium (Protonix Ec Tab) 20 mg PO DAILY [facility] Last Admin: 07/11/17 13:41 Dose: 20 mg - Labs Labs: 07/10/17 05:45 07/10/17 05:45 Assessment and Plan - Assessment and Plan (Free Text) Plan: - Will obtain CT scan of the abdomen and pelvis
[2017-07-11] MEDS: Pantoprazole 20 mg EC Tab PO SCH (13:41)
[2017-07-11] MEDS ORDERED: Iohexol 240 (50 ml) PO ONE (14:33)
[2017-07-12] MEDS: Oxycodone/Acetaminophen 5/325 mg Tab PO PRN ×3 (01:00→21:25)
--- NOTE | 2017-07-12 08:38 | CP.PCM.PN ---
Subjective - Date & Time of Evaluation Date of Evaluation: 07/12/17 Time of Evaluation: 08:38 - Subjective Subjective: pt doing well, small amt of loose bm, sacha liquid diet. no hiccough. no f/c, n/v/ d. surgical notes reviewed. Objective - Vital Signs/Intake and Output Vital Signs (last 24 hours): Temp Pulse Resp BP Pulse Ox 97.0 F L 87 20 151/85 H 94 L 07/12/17 07:46 07/12/17 07:46 07/12/17 07:46 07/12/17 07:46 07/12/17 07:46 - Medications Medications: Current Medications Al Hydrox/Mg Hydrox/Simethicone (Maalox Plus 30 Ml) 30 ml PO Q6 PRN PRN Reason: Indigestion / Heartburn Last Admin: 07/11/17 23:05 Dose: 30 ml Aspirin (Aspirin Chewable) 81 mg PO DAILY [facility] Last Admin: 07/11/17 08:41 Dose: 81 mg Enoxaparin Sodium (Lovenox) 40 mg SC DAILY [facility] PRN Reason: Protocol Last Admin: 07/11/17 08:40 Dose: 40 mg Metoprolol Succinate (Toprol Xl) 50 mg PO BID@0900,2100 [facility] Last Admin: 07/11/17 21:12 Dose: 50 mg Ondansetron HCl (Zofran Inj) 4 mg IVP Q6 PRN PRN Reason: Nausea/Vomiting Oxycodone/Acetaminophen (Percocet 5/325 Mg Tab) 1 tab PO Q4 PRN PRN Reason: Pain, severe (8-10) Stop: 07/12/17 22:28 Last Admin: 07/12/17 01:00 Dose: 1 tab Pantoprazole Sodium (Protonix Ec Tab) 20 mg PO DAILY [facility] Last Admin: 07/11/17 13:41 Dose: 20 mg - Labs Labs: 07/10/17 05:45 07/10/17 05:45 - Constitutional Appears: Well, Non-toxic, No Acute Distress - Head Exam Head Exam: ATRAUMATIC, NORMAL INSPECTION, NORMOCEPHALIC - Eye Exam Eye Exam: EOMI, Normal appearance, PERRL Pupil Exam: NORMAL ACCOMODATION, PERRL - ENT Exam ENT Exam: Mucous Membranes Moist, Normal Exam - Neck Exam Neck Exam: Full ROM, Normal Inspection. absent: Lymphadenopathy - Respiratory Exam Respiratory Exam: Clear to Ausculation Bilateral, NORMAL BREATHING PATTERN - Cardiovascular Exam Cardiovascular Exam: REGULAR RHYTHM, RRR, +S1, +S2. absent: Murmur - GI/Abdominal Exam GI & Abdominal Exam: Soft, Normal Bowel Sounds. absent: Tenderness - Extremities Exam Extremities Exam: Full ROM, Normal Capillary Refill, Normal Inspection. absent : Joint Swelling, Pedal Edema - Back Exam Back Exam: NORMAL INSPECTION - Neurological Exam Neurological Exam: Alert, Awake, CN II-XII Intact, Normal Gait, Oriented x3 - Psychiatric Exam Psychiatric exam: Normal Affect, Normal Mood - Skin Skin Exam: Dry, Intact, Normal Color, Warm Assessment and Plan (1) DVT prophylaxis Status: Acute (2) HTN (hypertension) Status: Acute (3) Perforation of sigmoid colon due to diverticulitis Status: Acute (4) Tachycardia Status: Acute - Assessment and Plan (Free Text) Assessment: (1) DVT prophylaxis Assessment and Plan: scd and ae hose lovneox Status: Acute (2) Hypokalemia Assessment and Plan: kdur monitor Status: Acute (3) Perforation of sigmoid colon due to diverticulitis Assessment and Plan: reverse of colostmy, surgery pain control had loose bm adv diet per surgery Status: Acute (4) Tachycardia Assessment and Plan: no further episodes cont metoprolol Status: Acute
[2017-07-12] MEDS: Enoxaparin 40 mg Syringe SC SCH (09:12)
[2017-07-12] MEDS: Pantoprazole 20 mg EC Tab PO SCH (09:13)
[2017-07-12] MEDS: Metoprolol Succinate 50 mg XL Tab PO SCH ×2 (09:13→21:24)
--- NOTE | 2017-07-12 11:08 | CP.PCM.PN ---
Subjective - Date & Time of Evaluation Date of Evaluation: 07/12/17 Time of Evaluation: 10:00 - Subjective Subjective: Patient was seen and examined at the bedside. Passing flatus and having bowel movements. Objective - Vital Signs/Intake and Output Vital Signs (last 24 hours): Temp Pulse Resp BP Pulse Ox 97.0 F L 87 20 151/85 H 94 L 07/12/17 07:46 07/12/17 09:13 07/12/17 07:46 07/12/17 09:13 07/12/17 07:46 - Medications Medications: Current Medications Al Hydrox/Mg Hydrox/Simethicone (Maalox Plus 30 Ml) 30 ml PO Q6 PRN PRN Reason: Indigestion / Heartburn Last Admin: 07/11/17 23:05 Dose: 30 ml Aspirin (Aspirin Chewable) 81 mg PO DAILY [facility] Last Admin: 07/12/17 09:12 Dose: 81 mg Enoxaparin Sodium (Lovenox) 40 mg SC DAILY [facility] PRN Reason: Protocol Last Admin: 07/12/17 09:12 Dose: 40 mg Metoprolol Succinate (Toprol Xl) 50 mg PO BID@0900,2100 [facility] Last Admin: 07/12/17 09:13 Dose: 50 mg Ondansetron HCl (Zofran Inj) 4 mg IVP Q6 PRN PRN Reason: Nausea/Vomiting Oxycodone/Acetaminophen (Percocet 5/325 Mg Tab) 1 tab PO Q4 PRN PRN Reason: Pain, severe (8-10) Stop: 07/12/17 22:28 Last Admin: 07/12/17 01:00 Dose: 1 tab Pantoprazole Sodium (Protonix Ec Tab) 20 mg PO DAILY [facility] Last Admin: 07/12/17 09:13 Dose: 20 mg - Labs Labs: 07/10/17 05:45 07/10/17 05:45 - Constitutional Appears: Well, Non-toxic, No Acute Distress - Head Exam Head Exam: ATRAUMATIC, NORMAL INSPECTION, NORMOCEPHALIC - Eye Exam Eye Exam: EOMI, Normal appearance, PERRL Pupil Exam: NORMAL ACCOMODATION, PERRL - ENT Exam ENT Exam: Mucous Membranes Moist, Normal Exam - Neck Exam Neck Exam: Full ROM, Normal Inspection - Respiratory Exam Respiratory Exam: Clear to Ausculation Bilateral, NORMAL BREATHING PATTERN - Cardiovascular Exam Cardiovascular Exam: REGULAR RHYTHM, +S1, +S2 - GI/Abdominal Exam GI & Abdominal Exam: Soft, Normal Bowel Sounds Additional comments: NT, mildly distended, no rebound, no guarding, incision clean, no erythema, no drainage, rashid in place - Rectal Exam Rectal Exam: Deferred - Extremities Exam Extremities Exam: Full ROM, Normal Inspection - Neurological Exam Neurological Exam: Alert, Awake, Oriented x3 - Psychiatric Exam Psychiatric exam: Normal Affect, Normal Mood - Skin Skin Exam: Dry, Intact, Normal Color, Warm Assessment and Plan - Assessment and Plan (Free Text) Assessment: 51 y.o. male s/p right hemicolectomy and colostomy reversal Plan: - Low residue diet - pain control - Out of bed and ambulate - Insentive spirometry - DVT ppx - Will follow
[2017-07-12] MEDS: Alum-Mag Hydrox-Simethicone Susp (30 mL) PO PRN (16:49)
[2017-07-13] MEDS: Oxycodone/Acetaminophen 5/325 mg Tab PO PRN ×3 (00:40→20:34)
[2017-07-13] MEDS: Metoprolol Succinate 50 mg XL Tab PO SCH ×2 (08:52→20:35)
[2017-07-13] MEDS: Pantoprazole 20 mg EC Tab PO SCH (08:53)
[2017-07-13] MEDS: Enoxaparin 40 mg Syringe SC SCH (09:53)
--- NOTE | 2017-07-13 11:02 | CP.PCM.PN ---
<Harshil Mercer Calos - Last Filed: 07/13/17 11:00> Subjective - Date & Time of Evaluation Date of Evaluation: 07/13/17 Time of Evaluation: 11:00 - Subjective Subjective: General Surgery: Dr Poole Pt S&E. Tolerating diet, having BMs. Doing well with PT. Hiccups resolved Objective - Vital Signs/Intake and Output Vital Signs (last 24 hours): Temp Pulse Resp BP Pulse Ox 98.2 F 75 20 121/69 95 07/13/17 08:07 07/13/17 08:52 07/13/17 08:07 07/13/17 08:52 07/13/17 08:07 - Medications Medications: Current Medications Al Hydrox/Mg Hydrox/Simethicone (Maalox Plus 30 Ml) 30 ml PO Q6 PRN PRN Reason: Indigestion / Heartburn Last Admin: 07/12/17 16:49 Dose: 30 ml Aspirin (Aspirin Chewable) 81 mg PO DAILY [facility] Last Admin: 07/13/17 08:53 Dose: 81 mg Enoxaparin Sodium (Lovenox) 40 mg SC DAILY [facility] PRN Reason: Protocol Last Admin: 07/13/17 09:53 Dose: 40 mg Metoprolol Succinate (Toprol Xl) 50 mg PO BID@0900,2100 [facility] Last Admin: 07/13/17 08:52 Dose: 50 mg Ondansetron HCl (Zofran Inj) 4 mg IVP Q6 PRN PRN Reason: Nausea/Vomiting Pantoprazole Sodium (Protonix Ec Tab) 20 mg PO DAILY [facility] Last Admin: 07/13/17 08:53 Dose: 20 mg - Labs Labs: 07/10/17 05:45 07/10/17 05:45 - Constitutional Appears: Non-toxic, No Acute Distress - Respiratory Exam Respiratory Exam: NORMAL BREATHING PATTERN. absent: Accessory Muscle Use, Respiratory Distress - Cardiovascular Exam Cardiovascular Exam: REGULAR RHYTHM. absent: Tachycardia - GI/Abdominal Exam GI & Abdominal Exam: Soft. absent: Distended, Firm, Guarding, Tenderness Additional comments: midline incision c/d/i - Neurological Exam Neurological Exam: Alert, Awake, Oriented x3 - Psychiatric Exam Psychiatric exam: Normal Mood - Skin Skin Exam: Normal Color Assessment and Plan - Assessment and Plan (Free Text) Assessment: 51M POD#9 s/p hartmanns reversal and right hemicolectomy Plan: doing well cont PT, OOB, IS use d/c at discretion of primary surgically pt is clear f/u in office for staple removal will d/w attending Sylvie, PGY3 <Edward Poole - Last Filed: 07/13/17 12:46> Subjective - Date & Time of Evaluation Time of Evaluation: 11:40 - Subjective Subjective: Patient was seen and examined at the bedside. Agree with resident's note above. Objective - Vital Signs/Intake and Output Vital Signs (last 24 hours): Temp Pulse Resp BP Pulse Ox 98.2 F 75 20 121/69 95 07/13/17 08:07 07/13/17 08:52 07/13/17 08:07 07/13/17 08:52 07/13/17 08:07 - Medications Medications: Current Medications Al Hydrox/Mg Hydrox/Simethicone (Maalox Plus 30 Ml) 30 ml PO Q6 PRN PRN Reason: Indigestion / Heartburn Last Admin: 07/12/17 16:49 Dose: 30 ml Aspirin (Aspirin Chewable) 81 mg PO DAILY [facility] Last Admin: 07/13/17 08:53 Dose: 81 mg Enoxaparin Sodium (Lovenox) 40 mg SC DAILY [facility] PRN Reason: Protocol Last Admin: 07/13/17 09:53 Dose: 40 mg Metoprolol Succinate (Toprol Xl) 50 mg PO BID@0900,2100 [facility] Last Admin: 07/13/17 08:52 Dose: 50 mg Ondansetron HCl (Zofran Inj) 4 mg IVP Q6 PRN PRN Reason: Nausea/Vomiting Pantoprazole Sodium (Protonix Ec Tab) 20 mg PO DAILY [facility] Last Admin: 07/13/17 08:53 Dose: 20 mg - Labs Labs: 07/10/17 05:45 07/10/17 05:45 Assessment and Plan - Assessment and Plan (Free Text) Plan: - Clear for discharge home from the general surgery stand point - patient will follow up with Dr. Beaulieu in the office for post-op visit
[2017-07-14] MEDS: Oxycodone/Acetaminophen 5/325 mg Tab PO PRN ×2 (02:00→20:02)
[2017-07-14] MEDS: Enoxaparin 40 mg Syringe SC SCH (09:13)
[2017-07-14] MEDS: Metoprolol Succinate 50 mg XL Tab PO SCH ×2 (09:13→21:27)
[2017-07-14] MEDS: Pantoprazole 20 mg EC Tab PO SCH (09:13)
--- NOTE | 2017-07-14 09:35 | CP.PCM.PN ---
Subjective - Date & Time of Evaluation Date of Evaluation: 07/14/17 Time of Evaluation: 09:34 - Subjective Subjective: pt ding well, cleared by cardio for dc but still required phys therapy. sacha po. no f/c, n/v/d. no pain at present. surigcal site c/d/i Objective - Vital Signs/Intake and Output Vital Signs (last 24 hours): Temp Pulse Resp BP Pulse Ox 97.6 F 72 20 144/89 95 07/14/17 09:23 07/14/17 09:23 07/14/17 09:23 07/14/17 09:23 07/14/17 09:23 - Medications Medications: Current Medications Al Hydrox/Mg Hydrox/Simethicone (Maalox Plus 30 Ml) 30 ml PO Q6 PRN PRN Reason: Indigestion / Heartburn Last Admin: 07/12/17 16:49 Dose: 30 ml Aspirin (Aspirin Chewable) 81 mg PO DAILY [facility] Last Admin: 07/14/17 09:13 Dose: 81 mg Enoxaparin Sodium (Lovenox) 40 mg SC DAILY [facility] PRN Reason: Protocol Last Admin: 07/14/17 09:13 Dose: 40 mg Metoprolol Succinate (Toprol Xl) 50 mg PO BID@0900,2100 [facility] Last Admin: 07/14/17 09:13 Dose: 50 mg Ondansetron HCl (Zofran Inj) 4 mg IVP Q6 PRN PRN Reason: Nausea/Vomiting Oxycodone/Acetaminophen (Percocet 5/325 Mg Tab) 1 tab PO Q4 PRN PRN Reason: Pain, severe (8-10) Stop: 07/16/17 15:23 Last Admin: 07/14/17 02:00 Dose: 1 tab Pantoprazole Sodium (Protonix Ec Tab) 20 mg PO DAILY [facility] Last Admin: 07/14/17 09:13 Dose: 20 mg - Labs Labs: 07/10/17 05:45 07/10/17 05:45 - Constitutional Appears: Well, Non-toxic, No Acute Distress - Head Exam Head Exam: ATRAUMATIC, NORMAL INSPECTION, NORMOCEPHALIC - Eye Exam Eye Exam: EOMI, Normal appearance, PERRL Pupil Exam: NORMAL ACCOMODATION, PERRL - ENT Exam ENT Exam: Mucous Membranes Moist, Normal Exam - Neck Exam Neck Exam: Full ROM, Normal Inspection. absent: Lymphadenopathy - Respiratory Exam Respiratory Exam: Clear to Ausculation Bilateral, NORMAL BREATHING PATTERN - Cardiovascular Exam Cardiovascular Exam: REGULAR RHYTHM, RRR, +S1, +S2. absent: Murmur - GI/Abdominal Exam GI & Abdominal Exam: Soft, Normal Bowel Sounds. absent: Tenderness - Extremities Exam Extremities Exam: Full ROM, Normal Capillary Refill, Normal Inspection. absent : Joint Swelling, Pedal Edema - Back Exam Back Exam: NORMAL INSPECTION - Neurological Exam Neurological Exam: Alert, Awake, CN II-XII Intact, Normal Gait, Oriented x3 - Psychiatric Exam Psychiatric exam: Normal Affect, Normal Mood - Skin Skin Exam: Dry, Intact, Normal Color, Warm Assessment and Plan (1) DVT prophylaxis Status: Acute (2) HTN (hypertension) Status: Acute (3) Perforation of sigmoid colon due to diverticulitis Status: Acute (4) Tachycardia Status: Acute - Assessment and Plan (Free Text) Assessment: (1) DVT prophylaxis Assessment and Plan: scd and ae hose lovneox Status: Acute (2) Hypokalemia Assessment and Plan: kdur monitor Status: Acute (3) Perforation of sigmoid colon due to diverticulitis Assessment and Plan: reverse of colostmy, surgery pain control had loose bm adv diet per surgery, sacha solids Status: Acute (4) Tachycardia Assessment and Plan: no further episodes cont metoprolol Status: Acute
[2017-07-15] MEDS: Oxycodone/Acetaminophen 5/325 mg Tab PO PRN ×3 (05:32→23:30)
[2017-07-15 07:02] LABS: BASO # 0.1 K/uL (0.0-0.2); BASO % 0.6 % (0.0-2.0); EOS # 0.2 K/uL (0.0-0.7); EOS % 1.8 % (0.0-4.0); HEMOGLOBIN 9.1 g/dL (12.0-18.0); LYMPH # 2.4 K/uL (1.0-4.3); LYMPH % 25.9 % (20.0-40.0); MEAN CELL VOLUME 95.2 fl (80.0-94.0); MEAN CORPUSCULAR HGB CONC 32.6 g/dL (33.0-37.0); MEAN PLATELET VOLUME 7.3 fl (7.2-11.7); MONO # 0.7 K/uL (0.0-0.8); MONO % 7.1 % (0.0-10.0); NEUT % 64.6 % (50.0-75.0); RBC 2.94 Mil/uL (4.40-5.90); RED CELL DISTRIBUTION WIDTH 13.1 % (11.5-14.5); WHITE BLOOD COUNT 9.3 K/uL (4.8-10.8)
[2017-07-15 07:09] LABS: PROTHROMBIN TIME 13.2 Seconds (9.8-13.1)
[2017-07-15 07:10] LABS: INR 1.2 (0.9-1.2); PARTIAL THROMBOPLASTIN TIME 27.2 Seconds (25.6-37.1)
[2017-07-15 07:26] LABS: ALB/GLOB RATIO 0.9 (1.0-2.1); ALBUMIN 2.9 g/dL (3.5-5.0); ALT/SGPT 27 U/L (21-72); AST/SGOT 22 U/L (17-59); BLOOD UREA NITROGEN 12 mg/dl (9-20); CALCIUM 8.2 mg/dL (8.4-10.2); GFR AFRICAN-AMERICAN > 60; GFR NON-AFRICAN AMERICAN > 60
[2017-07-15] MEDS: Enoxaparin 40 mg Syringe SC SCH (08:49)
[2017-07-15] MEDS: Metoprolol Succinate 50 mg XL Tab PO SCH ×2 (08:49→21:08)
[2017-07-15] MEDS: Pantoprazole 20 mg EC Tab PO SCH (08:49)
--- NOTE | 2017-07-16 08:16 | CP.PCM.PN ---
Subjective - Date & Time of Evaluation Date of Evaluation: 07/16/17 Time of Evaluation: 08:15 - Subjective Subjective: pt doing well. sacha po. feeling stronger, still requires phys therapy no f/c, n/v/d Objective - Vital Signs/Intake and Output Vital Signs (last 24 hours): Temp Pulse Resp BP Pulse Ox 98.1 F 82 20 155/87 H 94 L 07/16/17 08:07 07/16/17 08:07 07/16/17 08:07 07/16/17 08:07 07/16/17 08:07 - Medications Medications: Current Medications Al Hydrox/Mg Hydrox/Simethicone (Maalox Plus 30 Ml) 30 ml PO Q6 PRN PRN Reason: Indigestion / Heartburn Last Admin: 07/12/17 16:49 Dose: 30 ml Aspirin (Aspirin Chewable) 81 mg PO DAILY [facility] Last Admin: 07/15/17 08:49 Dose: 81 mg Enoxaparin Sodium (Lovenox) 40 mg SC DAILY [facility] PRN Reason: Protocol Last Admin: 07/15/17 08:49 Dose: 40 mg Metoprolol Succinate (Toprol Xl) 50 mg PO BID@0900,2100 [facility] Last Admin: 07/15/17 21:08 Dose: 50 mg Ondansetron HCl (Zofran Inj) 4 mg IVP Q6 PRN PRN Reason: Nausea/Vomiting Oxycodone/Acetaminophen (Percocet 5/325 Mg Tab) 1 tab PO Q4 PRN PRN Reason: Pain, severe (8-10) Stop: 07/16/17 15:23 Last Admin: 07/15/17 23:30 Dose: 1 tab Pantoprazole Sodium (Protonix Ec Tab) 20 mg PO DAILY [facility] Last Admin: 07/15/17 08:49 Dose: 20 mg - Labs Labs: 07/15/17 05:25 07/15/17 05:25 PT 13.2 Seconds (9.8-13.1) H 07/15/17 05:25 INR 1.2 (0.9-1.2) 07/15/17 05:25 APTT 27.2 Seconds (25.6-37.1) 07/15/17 05:25 - Constitutional Appears: Well, Non-toxic, No Acute Distress - Head Exam Head Exam: ATRAUMATIC, NORMAL INSPECTION, NORMOCEPHALIC - Eye Exam Eye Exam: EOMI, Normal appearance, PERRL Pupil Exam: NORMAL ACCOMODATION, PERRL - ENT Exam ENT Exam: Mucous Membranes Moist, Normal Exam - Neck Exam Neck Exam: Full ROM, Normal Inspection. absent: Lymphadenopathy - Respiratory Exam Respiratory Exam: Clear to Ausculation Bilateral, NORMAL BREATHING PATTERN - Cardiovascular Exam Cardiovascular Exam: REGULAR RHYTHM, RRR, +S1, +S2. absent: Murmur - GI/Abdominal Exam GI & Abdominal Exam: Soft, Normal Bowel Sounds. absent: Tenderness - Extremities Exam Extremities Exam: Full ROM, Normal Capillary Refill, Normal Inspection. absent : Joint Swelling, Pedal Edema - Back Exam Back Exam: NORMAL INSPECTION - Neurological Exam Neurological Exam: Alert, Awake, CN II-XII Intact, Normal Gait, Oriented x3 - Psychiatric Exam Psychiatric exam: Normal Affect, Normal Mood - Skin Skin Exam: Dry, Intact, Normal Color, Warm Assessment and Plan (1) DVT prophylaxis Status: Acute (2) HTN (hypertension) Status: Acute (3) Perforation of sigmoid colon due to diverticulitis Status: Acute (4) Tachycardia Status: Acute - Assessment and Plan (Free Text) Assessment: (1) DVT prophylaxis Assessment and Plan: scd and ae hose lovneox Status: Acute (2) Hypokalemia Assessment and Plan: kdur monitor Status: Acute (3) Perforation of sigmoid colon due to diverticulitis Assessment and Plan: reverse of colostmy, surgery pain control had loose bm adv diet per surgery, sacha solids Status: Acute (4) Tachycardia Assessment and Plan: no further episodes cont metoprolol Status: Acute
[2017-07-16] MEDS: Enoxaparin 40 mg Syringe SC SCH (08:40)
[2017-07-16] MEDS: Pantoprazole 20 mg EC Tab PO SCH (08:41)
[2017-07-16] MEDS: Metoprolol Succinate 50 mg XL Tab PO SCH ×2 (08:41→21:38)
[2017-07-16] MEDS: Oxycodone/Acetaminophen 5/325 mg Tab PO PRN ×3 (13:02→21:37)
[2017-07-17] MEDS: Oxycodone/Acetaminophen 5/325 mg Tab PO PRN (04:12)
[2017-07-17] MEDS: Pantoprazole 20 mg EC Tab PO SCH (08:33)
[2017-07-17] MEDS: Enoxaparin 40 mg Syringe SC SCH (08:33)
[2017-07-17 08:34] VITALS: PULSE 67
[2017-07-17] MEDS: Metoprolol Succinate 50 mg XL Tab PO SCH (08:34)
[2017-07-17 08:47] VITALS: BP 134/77; TEMP 97.9; O2SAT 95
--- NOTE | 2017-07-17 08:51 | CP.PCM.DIS ---
Provider - Provider Date of Admission: 07/09/17 22:19 Attending physician: Jonanthan Snow MD Time Spent in preparation of Discharge (in minutes): 15 Diagnosis - Discharge Diagnosis (1) DVT prophylaxis Status: Acute (2) HTN (hypertension) Status: Acute (3) Perforation of sigmoid colon due to diverticulitis Status: Acute (4) Tachycardia Status: Acute Hospital Course - Lab Results Lab Results: Most Recent Lab Values WBC 9.3 K/uL (4.8-10.8) 07/15/17 05:25 RBC 2.94 Mil/uL (4.40-5.90) L 07/15/17 05:25 Hgb 9.1 g/dL (12.0-18.0) L 07/15/17 05:25 Hct 28.0 % (35.0-51.0) L 07/15/17 05:25 MCV 95.2 fl (80.0-94.0) H 07/15/17 05:25 MCH 31.0 pg (27.0-31.0) 07/15/17 05:25 MCHC 32.6 g/dL (33.0-37.0) L 07/15/17 05:25 RDW 13.1 % (11.5-14.5) 07/15/17 05:25 Plt Count 330 K/uL (130-400) 07/15/17 05:25 MPV 7.3 fl (7.2-11.7) 07/15/17 05:25 Neut % (Auto) 64.6 % (50.0-75.0) 07/15/17 05:25 Lymph % (Auto) 25.9 % (20.0-40.0) 07/15/17 05:25 [place] % (Auto) 7.1 % (0.0-10.0) 07/15/17 05:25 Eos % (Auto) 1.8 % (0.0-4.0) 07/15/17 05:25 Baso % (Auto) 0.6 % (0.0-2.0) 07/15/17 05:25 Neut # 6.0 K/uL (1.8-7.0) 07/15/17 05:25 Lymph # 2.4 K/uL (1.0-4.3) 07/15/17 05:25 [place] # 0.7 K/uL (0.0-0.8) 07/15/17 05:25 Eos # 0.2 K/uL (0.0-0.7) 07/15/17 05:25 Baso # 0.1 K/uL (0.0-0.2) 07/15/17 05:25 PT 13.2 Seconds (9.8-13.1) H 07/15/17 05:25 INR 1.2 (0.9-1.2) 07/15/17 05:25 APTT 27.2 Seconds (25.6-37.1) 07/15/17 05:25 Sodium 141 mmol/l (132-148) 07/15/17 05:25 Potassium 3.6 MMOL/L (3.6-5.0) 07/15/17 05:25 Chloride 106 mmol/L (98-107) 07/15/17 05:25 Carbon Dioxide 27 mmol/L (22-30) 07/15/17 05:25 Anion Gap 12 (10-20) 07/15/17 05:25 BUN 12 mg/dl (9-20) 07/15/17 05:25 Creatinine 0.7 mg/dl (0.8-1.5) L 07/15/17 05:25 Est GFR ( Amer) > 60 07/15/17 05:25 Est GFR (Non-Af Amer) > 60 07/15/17 05:25 Random Glucose 97 mg/dL (75-110) 07/15/17 05:25 Calcium 8.2 mg/dL (8.4-10.2) L 07/15/17 05:25 Total Bilirubin 0.3 mg/dl (0.2-1.3) 07/15/17 05:25 AST 22 U/L (17-59) 07/15/17 05:25 ALT 27 U/L (21-72) 07/15/17 05:25 Alkaline Phosphatase 48 U/L (38-126) 07/15/17 05:25 Total Protein 6.1 G/DL (6.3-8.2) L 07/15/17 05:25 Albumin 2.9 g/dL (3.5-5.0) L 07/15/17 05:25 Globulin 3.1 gm/dL (2.2-3.9) 07/15/17 05:25 Albumin/Globulin Ratio 0.9 (1.0-2.1) L 07/15/17 05:25 - Hospital Course Hospital Course: pain control pt/ot surgery f/u Discharge Exam - Head Exam Head Exam: ATRAUMATIC, NORMAL INSPECTION, NORMOCEPHALIC Discharge Plan - Follow Up Plan Condition: GOOD Disposition: HOME/ ROUTINE Additional Instructions: f/u rmg/surgery 1 wk. meds per med rec cont pt/ot final dx-reversal of colostomy
== END 2017-07-17 12:58 | disposition home health service (06) | DRG 392 ==
LOC: H.TCU 22:19
PROVIDERS: ADMIT Family Medicine; ATTEND Family Medicine
PROC: F08Z4FZ Home Management Treatment using Assistive, Adaptive, Supportive or Protective Equipment (ICD-10-PCS; principal; 2017-07-09)
PROC: F07M6FZ Therapeutic Exercise Treatment of Musculoskeletal System - Whole Body using Assistive, Adaptive, Supportive or Protective Equipment (ICD-10-PCS; 2017-07-09)
DX: K57.20 Diverticulitis of large intestine with perforation and abscess without bleeding (principal); Z43.3 Encounter for attention to colostomy; E87.6 Hypokalemia; I10 Essential (primary) hypertension; K21.9 Gastro-esophageal reflux disease without esophagitis; F17.210 Nicotine dependence, cigarettes, uncomplicated; Z90.49 Acquired absence of other specified parts of digestive tract; Z93.3 Colostomy status; M17.12 Unilateral primary osteoarthritis, left knee; R00.0 Tachycardia, unspecified; R06.6 Hiccough; R11.0 Nausea

== ENCOUNTER 2017-09-28 16:53 | Emergency (ER) | payer MEDICARE ==
[2017-09-28 16:53] VITALS: BMI 29.0
[2017-09-28] MEDS ORDERED: Sodium Chloride 0.9% 1,000 ML IV STA (17:43)
[2017-09-28] MEDS ORDERED: Iohexol 240 (50 ml) PO ONE (17:43)
--- NOTE | 2017-09-28 17:48 | ED PDOC ---
HPI: Abdomen Time Seen by Provider: 09/28/17 17:31 Chief Complaint (Nursing): Abdominal Pain Chief Complaint (Provider): Abd pain History Per: Patient History/Exam Limitations: no limitations Onset/Duration Of Symptoms: Days (yesterday) Current Symptoms Are (Timing): Still Present Additional Complaint(s): Pt. with abd pain left lower since yesterday. Nausea, no vomit. No diarrhea or constipation. No back pain, testicular pain, dysuria. No weakness, chest pain, dyspnea. No new food or drinks. No fever. Had surgery to remove diverticulitis area in Jun by Dr. Beaulieu. Past Medical History Reviewed: Nursing Documentation, Vital Signs Vital Signs: Last Vital Signs Temp 97.8 F 09/28/17 17:29 Pulse 94 H 09/28/17 17:29 Resp 16 09/28/17 17:29 BP 131/82 09/28/17 17:29 Pulse Ox 97 09/28/17 17:49 - Medical History PMH: Arthritis (l knee), Back Problems (herniated disk), HTN Denies: Chronic Kidney Disease - Surgical History Other surgeries: diverticulitis removal - Family History Family History: States: Unknown Family Hx - Social History Alcohol: None Drugs: Denies - Home Medications Home Medications: Ambulatory Orders Medication Instructions Recorded Aspirin [Aspirin Chewable] 81 mg PO DAILY 07/04/17 Metoprolol Succinate [Toprol XL] 50 mg PO BID@0900,2100 tab 07/09/17 oxyCODONE/Acetaminophen [Percocet 1 tab PO Q4 PRN #10 tab 07/09/17 5/325 mg Tab] Magnesium Citrate [[facility] 150 ml PO DAILY PRN 3 Days bottle 09/28/17 Pharmacy Magnesium Citrate] - Allergies Allergies/Adverse Reactions: Allergies Allergy/AdvReac Type Severity Reaction Status Date / Time shrimp Allergy SHORTNESS Verified 04/04/17 18:11 OF BREATH soy Allergy SHORTNESS Verified 04/04/17 18:11 OF BREATH Review of Systems ROS Statement: Except As Marked, All Systems Reviewed And Found Negative Gastrointestinal: Positive for: Nausea, Abdominal Pain Physical Exam - Reviewed Nursing Documentation Reviewed: Yes Vital Signs Reviewed: Yes - Physical Exam Appears: Positive for: Non-toxic, No Acute Distress Head Exam: Positive for: ATRAUMATIC, NORMAL INSPECTION, NORMOCEPHALIC Skin: Positive for: Normal Color, Warm, DRY Eye Exam: Positive for: EOMI, Normal appearance, PERRL ENT: Positive for: Normal ENT Inspection Neck: Positive for: Normal, Painless ROM Cardiovascular/Chest: Positive for: Regular Rate, Rhythm Respiratory: Positive for: CNT, Normal Breath Sounds Gastrointestinal/Abdominal: Positive for: Soft, Tenderness (left lower and suprapubic) Back: Positive for: Normal Inspection Extremity: Positive for: Normal ROM Neurologic/Psych: Positive for: Alert, Oriented - Laboratory Results Result Diagrams: 09/28/17 18:40 09/28/17 18:40 Interpretation Of Abn Labs: no acute - ECG ECG: Positive for: Interpreted By Me, Viewed By Me ECG Rhythm: Positive for: Normal QRS, Sinus Rhythm Interpretation Of Abn EKG: same as previous O2 Sat by Pulse Oximetry: 97 Pulse Ox Interpretation: Normal - CT Scan/US ct Other Rad Studies (CT/US): Read By Radiologist Other Rad Interpretation: no acute; adrenal lesion - Progress ED Course And Treament: 2254: Stable. AAOx3. Pain free. Constipation possible. Will rx mag citrate. Pt. tolerated po with no issues. Adrenal lesion seen on previous ct. Disposition - Clinical Impression Clinical Impression: Abdominal pain, Constipation - Patient ED Disposition Is Patient to be Admitted: No Counseled Patient/Family Regarding: Studies Performed, Diagnosis, Need For Followup - Disposition Referrals: [facility] [Outside] - 10/01/17 Disposition: Routine/Home Disposition Time: 22:30 Condition: STABLE Additional Instructions: Return if not better in 3 days. Prescriptions: Magnesium Citrate [[facility] Magnesium Citrate] 150 ml PO DAILY PRN 3 Days bottle PRN Reason: Constipation Instructions: Acute Abdomen (Belly Pain), Constipation, Adult (DC) Forms: [employer] (Croatian)
[2017-09-28] MEDS ORDERED: Iohexol 240 (50 ml) ONE (18:13)
[2017-09-28 18:49] LABS: BASO # 0.1 K/uL (0.0-0.2); BASO % 1.1 % (0.0-2.0); EOS # 0.2 K/uL (0.0-0.7); EOS % 2.5 % (0.0-4.0); HEMOGLOBIN 12.6 g/dL (12.0-18.0); LYMPH # 2.8 K/uL (1.0-4.3); LYMPH % 35.8 % (20.0-40.0); MEAN CELL VOLUME 87.7 fl (80.0-94.0); MEAN CORPUSCULAR HEMOGLOBIN 28.7 pg (27.0-31.0); MEAN CORPUSCULAR HGB CONC 32.7 g/dL (33.0-37.0); MEAN PLATELET VOLUME 7.1 fl (7.2-11.7); MONO # 0.8 K/uL (0.0-0.8); MONO % 10.2 % (0.0-10.0); NEUT # 3.9 K/uL (1.8-7.0); NEUT % 50.4 % (50.0-75.0); NRBC % 0.1 % (0.0-0.0); RBC 4.4 Mil/uL (4.40-5.90); RED CELL DISTRIBUTION WIDTH 13.4 % (11.5-14.5); WHITE BLOOD COUNT 7.8 K/uL (4.8-10.8)
[2017-09-28 19:06] LABS: ALB/GLOB RATIO 1.3 (1.0-2.1); ALBUMIN 3.9 g/dL (3.5-5.0); ALT/SGPT 28 U/L (21-72); AST/SGOT 21 U/L (17-59); BLOOD UREA NITROGEN 17 mg/dl (9-20); GFR AFRICAN-AMERICAN > 60; GFR NON-AFRICAN AMERICAN 53; LIPASE 95 U/L (23-300)
[2017-09-28 19:08] LABS: PROTHROMBIN TIME 10.8 Seconds (9.8-13.1)
[2017-09-28] MEDS ORDERED: Iohexol 300 100 ML IJ ONE (22:07)
--- NOTE | 2017-09-28 22:38 | CT ---
EXAM: CT Abdomen and Pelvis With Intravenous Contrast CLINICAL HISTORY: 52 years old, male; Pain; Abdominal pain; Other: Lower abd pain; Prior surgery; Surgery date: 6+ months; Surgery type: Diverticulitis surgery TECHNIQUE: Axial computed tomography images of the abdomen and pelvis with intravenous contrast. All CT scans at this facility use one or more dose reduction techniques, viz.: automated exposure control; ma/kV adjustment per patient size (including targeted exams where dose is matched to indication; i.e. head); or iterative reconstruction technique. Coronal and sagittal reformatted images were created and reviewed. CONTRAST: 95 mL of Omnipaque administered intravenously. COMPARISON: No relevant prior studies available. FINDINGS: Lung bases: Unremarkable. No mass. No consolidation. Mediastinum: Small hiatal hernia. ABDOMEN: Liver: Unremarkable. No mass. Gallbladder and bile ducts: Unremarkable. No calcified stones. No ductal dilation. Pancreas: Unremarkable. No mass. No ductal dilation. Spleen: Unremarkable. No splenomegaly. Adrenals: Right adrenal gland is unremarkable. 1.6 CM left adrenal lesion. Kidneys and ureters: Unremarkable. No solid mass. No hydronephrosis. Stomach and bowel: Moderate amount retained stool. Colonic diverticulosis. Anastomotic suture line in level of sigmoid. Appendix: No findings to suggest acute appendicitis. PELVIS: Bladder: Unremarkable. No mass. Reproductive: Unremarkable as visualized. ABDOMEN and PELVIS: Intraperitoneal space: Unremarkable. No free air. No significant fluid collection. Bones/joints: Lumbar spinal disc disease. Vacuum disc at L4-L5. No acute fracture. No dislocation. Soft tissues: Unremarkable. Vasculature: Atherosclerotic vascular disease. No abdominal aortic aneurysm. Lymph nodes: Unremarkable. No enlarged lymph nodes. IMPRESSION: 1. Sigmoid diverticulosis, without evidence of acute diverticulitis. 2. Moderate amount of retained stool in colon. 3. Remainder of findings as above.
[2017-09-28 23:21] VITALS: BP 136/78; PULSE 78; RESP 18; TEMP 98; O2SAT 100
--- NOTE | 2017-09-29 08:39 | CARD ---
APPROVED REPORT EKG Measurement Heart [id number] <Conclusion> Normal sinus rhythm Left anterior fascicular block Abnormal ECG
== END 2017-09-28 23:21 | disposition home or self-care (01) ==
LOC: H.ER 16:53
DX: K59.00 Constipation, unspecified (principal); I10 Essential (primary) hypertension; Z79.82 Long term (current) use of aspirin
CPT/HCPCS: 74177; 80053; 83690; 84484; 85025; 85610; 85730; 93005; 96374; 99283; J1885; J7040; Q9966; Q9967

== ENCOUNTER 2018-07-03 13:59 | Emergency (ER) | payer MEDICARE ==
[2018-07-03 14:00] VITALS: BMI 29.0
[2018-07-03 14:34] VITALS: BP 150/92; PULSE 89; RESP 16; TEMP 98.3; O2SAT 97
--- NOTE | 2018-07-03 15:17 | ED PDOC ---
HPI: CCC, URI, Sore Throat Time Seen by Provider: 07/03/18 15:01 Chief Complaint (Nursing): ENT Problem Chief Complaint (Provider): ENT Problem History Per: Patient History/Exam Limitations: no limitations Onset/Duration Of Symptoms: Days (x2) Location Of Pain: Throat Associated Symptoms: Nasal Congestion Additional Complaint(s): Yoel Stinson is a 52 year old male with a past medical history of hypercholesterolemia, hyperlipidemia, and hypertension who is presenting to the ED for evaluation of sore throat and runny nose onset 2 days ago. Patient denies any ear pain and states that he is taking Tylenol to manage pain. He offers no other medical complaints at this time. PMD; Rc Armijo Past Medical History Reviewed: Historical Data, Nursing Documentation, Vital Signs Vital Signs: Last Vital Signs Temp 98.3 F 07/03/18 14:33 Pulse 89 07/03/18 14:33 Resp 16 07/03/18 14:33 BP 150/92 H 07/03/18 14:33 Pulse Ox 97 07/03/18 14:33 - Medical History PMH: Arthritis (l knee), Back Problems (herniated disk), HTN, Hypercholesterolemia, Hyperlipidemia, Chronic Pain (back) Denies: Chronic Kidney Disease - Surgical History Other surgeries: hemicolectomy - Family History Family History: States: Unknown Family Hx - Social History Current smoker - smoking cessation education provided: No Alcohol: None Drugs: Denies - Home Medications Home Medications: Ambulatory Orders Medication Instructions Recorded RX: Aspirin [Aspirin Chewable] 81 mg PO DAILY 07/04/17 RX: Metoprolol Succinate XL 50 mg PO BID@0900,2100 tab 07/09/17 [Toprol XL] RX: oxyCODONE/Acetaminophen 1 tab PO Q4 PRN #10 tab 07/09/17 [Percocet 5/325 mg Tab] Magnesium Citrate [[facility] 150 ml PO DAILY PRN 3 Days bottle 09/28/17 Pharmacy Magnesium Citrate] Acetaminophen [Acetaminophen 8 650 mg PO Q8 PRN #21 tablet.er 03/08/18 Hour] Meloxicam [Mobic] 15 mg PO DAILY PRN #14 tab 03/08/18 Oseltamivir Phosphate [Tamiflu] 75 mg PO BID #10 capsule 07/03/18 - Allergies Allergies/Adverse Reactions: Allergies Allergy/AdvReac Type Severity Reaction Status Date / Time shrimp Allergy SHORTNESS Verified 07/03/18 14:32 OF BREATH soy Allergy SHORTNESS Verified 07/03/18 14:32 OF BREATH Review of Systems ROS Statement: Except As Marked, All Systems Reviewed And Found Negative ENT: Positive for: Nose Discharge, Nose Congestion, Throat Pain. Negative for: Ear Pain Physical Exam - Reviewed Nursing Documentation Reviewed: Yes Vital Signs Reviewed: Yes - Physical Exam Appears: Positive for: Well, Non-toxic, No Acute Distress Head Exam: Positive for: ATRAUMATIC, NORMAL INSPECTION, NORMOCEPHALIC Skin: Positive for: Normal Color, Warm Eye Exam: Positive for: Normal appearance ENT: Positive for: Pharynx Is (clear), Pharyngeal Erythema (mild), Other (cervical nodes not imfalmmed 0+). Negative for: Tonsillar Exudate, Tonsillar Swelling Cardiovascular/Chest: Positive for: Regular Rate, Rhythm. Negative for: Murmur Respiratory: Positive for: Normal Breath Sounds. Negative for: Respiratory Distress Extremity: Positive for: Normal ROM. Negative for: Deformity, Swelling Neurologic/Psych: Positive for: Alert, Oriented. Negative for: Motor/Sensory Deficits - ECG O2 Sat by Pulse Oximetry: 97 (RA) Pulse Ox Interpretation: Normal Medical Decision Making Medical Decision Making: Time: 15:19 Plan: --Rapid Strep (-) --Influenza A B (-) (-) Pt is stable for discharge; will be rx tamiflu based on clinical presenation Scribe Attestation: Documented by, Krista Campos acting as a scribe for Darrell Feliciano PA-C. Provider Scribe Attestation: All medical record entries made by the Scribe were at my direction and personally dictated by me. I have reviewed the chart and agree that the record accurately reflects my personal performance of the history, physical exam, medical decision making, and the department course for this patient. I have also personally directed, reviewed, and agree with the discharge instructions and disposition. Disposition - Clinical Impression Clinical Impression: Influenza-like symptoms - Patient ED Disposition Is Patient to be Admitted: No Doctor Will See Patient In The: Office Counseled Patient/Family Regarding: Diagnosis, Need For Followup, Rx Given - Disposition Referrals: [facility] [Outside] Disposition: Routine/Home Disposition Time: 17:00 Condition: STABLE Prescriptions: Oseltamivir Phosphate [Tamiflu] 75 mg PO BID #10 capsule Instructions: Flu, Flu, Adult (DC) Forms: [employer] (Hungarian)
== END 2018-07-03 17:10 | disposition home or self-care (01) ==
LOC: H.ER 13:59
DX: J11.1 Influenza due to unidentified influenza virus with other respiratory manifestations (principal); F17.210 Nicotine dependence, cigarettes, uncomplicated